=== PATIENT | male | born 1970 | race Caucasian/White ===

== ENCOUNTER 2022-08-22 10:32 | Inpatient (IN) ==
--- NOTE | 2022-08-22 11:36 | XRay Report ---
XR chest 1V portable CLINICAL HISTORY: Shortness of breath. COMPARISON STUDY: No previous studies for comparison. FINDINGS: There are low lung volumes with a small right pleural effusion and right mid and lower lung airspace opacity. Mild left basilar opacity is also present. Cardiac size is normal. There is pulmon caitlin vascular congestion. Spinal fusion is incidentally noted. IMPRESSION: 1. Bibasilar opacities, greater on the right. The findings favor pneumonia although atelectasis could appear similar. Radiographic follow-up is recommended to ensure stability. 2. Pulmonary vascular congestion. Small right pleural effusion. ACT 112: Negative or not required by law. Electronically signed by: North Andrade M.D. 08/22/2022 11:35 AM
[2022-08-22 11:54] LABS: Hematocrit (blood only) 21.3 % (40.1-51.0); Hemoglobin 6.7 g/dl (14.0-18.0); Mean Corpuscular Hemoglobin 32.8 pg (25.0-34.0); Mean Corpuscular Hgb Conc 31.5 g/dL (32.0-36.0); Mean Corpuscular Volume 104.4 fL (80.0-100.0); Mean Platelet Volume 11.4 fL (9.4-12.4); Platelet Count 283 K/uL (130-400); RDW Coefficient of Variation 14.6 % (11.5-14.5); RDW Standard Deviation 55.8 fL (36.4-46.3); Red Blood Count 2.04 M/uL (4.63-6.08); White Blood Count 11.77 K/ul (4.8-10.8)
[2022-08-22 12:00] LABS: INR 1.8 (0.9-1.1); Partial Thromboplastin Ratio 0.9; Partial Thromboplastin Time 25.5 Seconds (21.0-31.0); Prothrombin Time 18.1 Seconds (9.0-12.0)
[2022-08-22 12:07] LABS: Basophils # (auto) 0.02 K/uL (0-0.2); Basophils % (auto) 0.2 %; Echinocytes 1+; Eosinophils # (auto) 0.01 K/uL (0-0.50); Eosinophils % (auto) 0.1 %; Immature Granulocytes # (auto) 0.06 K/uL (0.00-0.02); Immature Granulocytes % (auto) 0.5 %; Lymphocytes # (auto) 1.22 K/uL (1.2-3.4); Lymphocytes % (auto) 10.4 %; Monocytes # (auto) 1.12 K/uL (0.24-0.82); Monocytes % (auto) 9.5 %; Neutrophils # (auto) 9.34 K/uL (1.4-6.5); Neutrophils % (auto) 79.3 %
[2022-08-22] MEDS ORDERED: SODIUM CHLORIDE 0.9% 250 ML IV PRN (12:07)
[2022-08-22 12:16] LABS: Troponin I High Sensitivity 6.7 pg/ml (0-20)
[2022-08-22 12:31] LABS: Alanine Aminotransferase 91 U/L (7-52); Albumin Globulin Ratio 0.9 (0.9-2); Albumin Level 2.3 gm/dl (3.4-5.0); Alkaline Phosphatase 102 U/L (34-104); Anion Gap 10 (3-11); Aspartate Aminotransferase 140 U/L (13-39); BUN Creatinine Ratio 44.9 (10-20); Bilirubin,Total 1.1 mg/dl (0.2-1.0); Blood Urea Nitrogen 40 mg/dl (6-23); Carbon Dioxide 15 mmol/L (21-32); Chloride 115 mmol/L (98-107); Est GFR (African American) 113.1 ml/min; Est GFR (Non-African American) 97.6 ml/min; Globulin 2.7 gm/dl (2.5-4.0); Glucose 121 mg/dl (70-99(Fasting)); Magnesium 1.8 mg/dl (1.7-2.4); Potassium 6.2 mmol/L (3.5-5.1); Sodium 140 mmol/L (136-145)
[2022-08-22 12:44] LABS: Base Excess VBG -6.8 mEq/L; HCO3 VBG 18 mmol/L; Oxygen Saturation VBG < 60.0 %; PCO2 VBG 32 mmHg (38-50); PO2 VBG 22 mmHg; pH VBG 7.35 (7.36-7.41)
[2022-08-22] MEDS ORDERED: NovoLIN-R INSULIN PER UNIT CHARGE IV STA (13:02)
[2022-08-22] MEDS ORDERED: DEXTROSE 50% 50 ML SYRINGE IV ONE (13:02)
[2022-08-22] MEDS ORDERED: SODIUM CHLORIDE 0.9% 500 ML IV ONE (13:05)
[2022-08-22] MEDS ORDERED: CEFEPIME 2,000 MG/20 ML VIAL IV STA (13:06)
[2022-08-22] MEDS ORDERED: PANTOprazole 80 MG in DEXTROSE 5% 100 ML IV ONE (13:06)
[2022-08-22] MEDS ORDERED: PANTOPRAZOLE BOLUS/DRIP 1 EACH IV STA (13:06)
[2022-08-22 13:17] LABS: Adenovirus PCR Not Detected (NotDetected); Bordetella parapertussis PCR Not Detected (NotDetected); Bordetella pertussis PCR Not Detected (NotDetected); Chlamydia pneumoniae PCR Not Detected (NotDetected); Coronavirus 229E PCR Not Detected (NotDetected); Coronavirus CoV-2 (COVID19)PCR Not Detected (NotDetected); Coronavirus HKU1 PCR Not Detected (NotDetected); Coronavirus NL63 PCR Not Detected (NotDetected); Coronavirus OC43PCR Not Detected (NotDetected); Human Metapneumovirus PCR Not Detected (NotDetected); Influenza A PCR Not Detected (NotDetected); Influenza B PCR Not Detected (NotDetected); Mycoplasma pneumoniae PCR Not Detected (NotDetected); Parainfluenza Virus 1 PCR Not Detected (NotDetected); Parainfluenza Virus 2 PCR Not Detected (NotDetected); Parainfluenza Virus 3 PCR Not Detected (NotDetected); Parainfluenza Virus 4 PCR Not Detected (NotDetected); Respiratory Syncytial VirusPCR Not Detected (NotDetected); Rhinovirus/Enterovirus PCR Not Detected (NotDetected)
[2022-08-22] MEDS ORDERED: OPTIRAY 320 500ml IV ONE (13:49)
--- NOTE | 2022-08-22 14:09 | CT Scan Report ---
CT OF THE ABDOMEN AND PELVIS WITH CONTRAST CLINICAL HISTORY: Bilateral lower extremity edema. GI bleed. COMPARISON STUDY: None. TECHNIQUE: Following IV administration of Optiray, axial images of the abdomen and pelvis were obtain ed from the lung bases to the proximal femurs. Images were reviewed in the axial, sagittal, and coron al planes. IV contrast was administered without complication. Automated exposure control was utilize d for the study. A dose lowering technique was utilized adhering to the principles of ALARA. FINDINGS: Emphysema within the lower lungs. Small right and trace left pleural effusions are noted. T he chest CT will be reported separately. There is a small hiatal hernia. Distal esophageal wall thick ening is noted. 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 Moderate gastric wall thickening is noted. Hyperden se material within the distal stomach is noted. The liver is cirrhotic. No hepatic lesions are identi fied on this portal venous phase exam. The main, left and right portal veins are patent. Size of the spleen is normal. Moderate abdominal and pelvic ascites is present. There is no evidence for a bowel obstruction. Mild nonspecific jejunal wall thickening is present. A small amount of ascites with a ri ght inguinal hernia is present. There is no hydronephrosis. A 3.9 cm cyst within the upper pole of th e right kidney is present. No biliary or pancreatic ductal dilatation is present. Major vasculature i s patent. There are no acute fractures within the visualized skeletal structures. IMPRESSION: 1. Cirrhosis with manifestations of portal hypertension including varices and moderate ascites. 2. Mild gastric wall thickening and prominent mucosal enhancement. This is nonspecific although may r eflect gastritis. Hyperdense material within the distal stomach which likely reflects ingested conten ts however clot could appear similar. 3. No bowel obstruction. Jejunal wall thickening. This is also nonspecific and could be due to to por gurpreet hypertension or hypoalbuminemia. 4. Moderate right and trace left pleural effusions. 5. Small hiatal hernia with distal esophageal wall thickening which may reflect esophagitis. ACT 112: Negative or not required by law. Electronically signed by: North Andrade M.D. 08/22/2022 2:08 PM
--- NOTE | 2022-08-22 14:09 | CT Scan Report ---
CT ANGIOGRAPHY OF THE CHEST, PULMONARY EMBOLUS PROTOCOL CLINICAL HISTORY: Shortness of breath. Evaluate for pulmonary embolus. COMPARISON STUDY: Chest radiograph performed earlier today. TECHNIQUE: Following IV administration of 99 mL of Optiray, helical axial images of the chest were ob tained utilizing the pulmonary embolus protocol. Maximal intensity projections and sagittal and jess nal reformats were viewed on an independent 3D workstation. IV contrast was administered without com plication. Automated exposure control was utilized for the study. A dose lowering technique was uti lized adhering to the principles of ALARA. CT DOSE: 1184.66 mGy.cm FINDINGS: No central or lobar pulmonary emboli identified. Remainder of the pulmonary arteries are s uboptimally assessed due to significant respiratory motion artifact. There is no thoracic aortic diss ection. Size of the heart is normal. There is no thoracic lymphadenopathy. Small right and trace left pleural effusions is noted. Associated airspace opacities favor atelectasis. Emphysema is present. L ungs are suboptimally assessed due to respiratory motion. No consolidation to suggest pneumonia. No p neumothorax. A small hiatal hernia is noted with distal esophageal wall thickening. Trace fluid withi n the cul-de-sac is noted. Hyperdense within visualized portions of the stomach are noted. Cirrhosis with upper abdominal ascites is visualized within the upper abdomen. IMPRESSION: 1. No pulmonary emboli identified although exam significantly compromised by respiratory motion. 2. Small right and trace left pleural effusions. 3. Emphysema. 4. Small hiatal hernia with distal esophageal wall thickening which is nonspecific but may reflect es ophagitis. 5. Hyperdense contents within the stomach. This likely reflects ingested material however clot could appear similar. 6. Cirrhosis with upper abdominal ascites. ACT 112: Negative or not required by law. Electronically signed by: North Andrade M.D. 08/22/2022 2:07 PM
[2022-08-22] MEDS: CALCIUM GLUCONATE 1,000 MG/60 ML BAG IV SCH ×3 (14:35→15:17)
[2022-08-22] MEDS ORDERED: OCTREOTIDE ACETATE 50 MCG in SYRINGE 9.5 ML IV STA (14:37)
[2022-08-22] MEDS ORDERED: STAT IV STA ×2 (14:37→20:18)
[2022-08-22] MEDS ORDERED: Patient's ALLERGY Info needs ENTERED SCH (14:45)
[2022-08-22] MEDS ORDERED: Patient's HEIGHT &/or WEIGHT Needed SCH (14:45)
[2022-08-22] MEDS ORDERED: ALBUT/IPRATROP 3MG/0.5MG NEB 3 ML VIAL NEB STA (14:54)
[2022-08-22] MEDS ORDERED: methylPREDNISolone 125 MG/2 ML VIAL IV STA (14:54)
[2022-08-22] MEDS ORDERED: LORazepam 2 MG/1 ML VIAL IV STA (14:54)
--- NOTE | 2022-08-22 14:55 | History & Physical Report ---
Date of Service August 22, 2022 Assessment & Plan (1) Upper GI bleed: Plan: Acute GI bleed,? Variceal bleed - CT-A/P: 1. Cirrhosis with manifestations of portal hypertension including varices and moderate ascites.2. Mild gastric wall thickening and prominent mucosal enhancement. This is nonspecific although may reflect gastritis. Hyperdense material within the distal stomach which likely reflects ingested contents however clot could appear similar.3. No bowel obstruction. Jejunal wall thickening. This is also nonspecific and could be due to to portal hypertension or hypoalbuminemia.4. Moderate right and trace left pleural effusions.5. Small hiatal hernia with distal esophageal wall thickening which may reflect esophagitis. - Hgb 6.2 on admit - Lactate 6.6, recheck pending On octreotide drip On Protonix drip Received NSS bolus on admission On cefepime, Flagyl added for anaerobic coverage Normotensive on initial assessment, pulse [id number], sinus tach suspect reactive with blood loss On 2 L of nasal cannula GI consulted, pending endoscopy. Strict n.p.o. 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 - INR 1.8, patient does not take blood thinners suspect cirrhotic coagulopathy; vitamin K 5 mg x 1 IV given in ER Patient initially hypotensive with elevated lactate, question hypoperfusion injury Octreotide/PPI/antibiotic management as noted above No ascites requiring emergent removal at time of initial assessment No history of hepatitis, per patient past history of alcohol use in remission (3) Hyperkalemia: Plan: Hyperkalemia K 6.2, no renal failure, Creatinine 0.89. Metabolic acidosis in the setting of lactate 6.6 - No chest pain/EKG changes BUN 40, consistent with upper GI bleed Receiving IV fluids, has received dextrose/insulin/calcium - +LR bolus, bicarb drip ordered on ICU xfer, renal electrolytes pending. Recheck potassium at 4 hours - BMP every 4 hours - Continue insulin/dextrose and calcium PRN. 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 Received Ativan IV in ER for anxiety, additional doses per clinical reassessment (5) Past use of tobacco: Plan: Hx tobacco use, ?COPD No diagnosis of COPD, has never had PFTs per pt Smoked 0.5 for at least 35 years, quit 6 months ago Scant wheezing on admission improved with methylpred + albuterol nebulizer in ER Patient denies using inhalers SERVICE SUPERVISOR, continue nebs as needed for wheezing/SOB is his facility med list. Defer additional steroids in the setting of acute bleeding Folow-up PFTs as outpatient (6) History of intravenous drug abuse: Plan: In remission for 2 years per patient, patient reports had not been tested for HIV/HCV in the past, although 1 note of possible testing in 06/2022 per record review. Hepatitis panel/HIV test pending. HIV test discussed with patient at time of admission, patient consents to testing (7) Hepatitis C virus: Plan: Patient denies this, one mention of HCV in [facility] review without additional details Patient was unaware of HCV testing or treatment (8) Pneumonia: Plan: right middle lobe pneumonia - Initially suspected base don CXR and cough. Reviewed with pulm, low suspicion. continue abx for GIB and defer additional coverage at this time No hypoxia on room air initially, did drop once and stable on 0-2 L oxygen. SPO2 goal greater than 90% Bio fire negative Imaging as noted No evidence of PE Plan DVT prophylaxis: Defer pharmacal prophylaxis in the setting of acute bleeding, SCDs Diet: Strict n.p.o. for GI bleed pending endoscopy Disposition: ICU CODE STATUS: Full code History of Present Illness [facility] 51[facility] who presents for acute GI bleed and weakness. ER Review: EKG: Sinus tachycardia, QTC 462. No ST segment changes Leukocytosis of 11.77, hemoglobin 6.7 with MCV 104, no hemoglobin baseline available for review INR 1.8 VB.3 / Potassium: 6.2, sodium 140 Lactate 6.6 on admission, repeat Procalcitonin 0.72 Bio fire negative CTAchest: No pulmonary emboli, exam limited by respiratory motion. Small right, trace left pleural effusions. Emphysema. Small hiatal hernia,? Esophagitis. Hyperdense stomach contents, ingested material versus clot. Cirrhosis with upper abdominal ascites. CTA/P: Cirrhosis with evidence of portal hypertension including varices/ascites. Mild gastric wall thickening and mucosal enhancement. No bowel obstruction, jejunal wall thickening. Moderate right and trace left pleural effusions. Small hiatal hernia, distal esophageal wall thickening CXR: Bibasilar opacities right greater than left favoring pneumonia. Pulmonary vascular congestion with small right pleural effusion. No echocardiogram on file for review Pt hx Patient seen at bedside with care home guards present. Patient reports that about 1 week ago he had epigastric pain suspected possible hernia with no prior history of GERD, was recommended to use a binder. Had 2 episodes of dark black bowel movements which occurred approximately 1 week ago. Has used ibuprofen for general pain in the past. Denies history of ulcers/endoscopy in the past. No black/melenic bowel movements prior to 2 weeks ago. With EMR history of cirrhosis, patient reports he was unaware of this. Endorses a past history of IV drug use and meth use in remission for 2 years, reports that he has not been tested for hep C virus or HIV in the past and has not received treatment for either of these to his knowledge. Per chart mention of HCV 06/2022 without additional details given. No alcohol use in 15 years. Patient reports he became very short of breath which worsened in the last 2 days and is worsened by ambulation. Reconciliation shows had been prescribed azithromycin 5-day course. At time of assessment endorses slight shortness of breath worsens with exertion, denies any chest pressure/chest pain/syncope/presyncope. Has had epigastric pain intermittently in the last 2 weeks but is worse in the last 24 hours. Pepcid was prescribed by the facility for this SERVICE SUPERVISOR. No PPI trials to patient's knowledge previous to this. Patient denies any history of blood thinner use, clotting/bleeding problems in the past. No history of liver/renal failure to patient's knowledge. He reports he has never been told he has COPD, has smoked since age 9 recently in remission approximately 6 months ago. Prior 0.5 pack/day use on average to quitting. Allergies Allergy/AdvReac Type Severity Reaction Status Date / Time No Known Allergies Allergy Unverified 08/22/22 15:39 Home Medications Medication Instructions Recorded Confirmed Type albuterol sulfate 90 mcg/actuation 1 puff inhalation Q4H PRN Wheezing 08/22/22 08/22/22 History aerosol inhaler azithromycin 250 mg tablet 250 mg PO DAILY 08/22/22 08/22/22 History famotidine 20 mg tablet 20 mg PO BID 08/22/22 08/22/22 History ibuprofen 600 mg tablet 600 mg PO TID PRN Pain 08/22/22 08/22/22 History mirtazapine 15 mg tablet 15 mg PO HS 08/22/22 08/22/22 History paroxetine HCl 20 mg tablet 20 mg PO DAILY 08/22/22 08/22/22 History Past Med/Surg History Medical History Anxiety Cirrhosis History of intravenous drug abuse Past use of tobacco Social History (Updated 08/22/22 @ 15:52 by Juan David Penn MD) Smoking Status: Former smoker Tobacco Type: Cigarettes Age Started Using Tobacco: 9; Age Quit Using Tobacco: 51; packs per day: 0.5; Hx Alcohol Use: No (Past etoh) Hx Substance Use: Yes Non-Prescribed Medications: IV Drugs Last Used Substance Other:: 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 Preferred Language: Wolof Feels Safe at Home: Yes Review of Systems Review of Systems: All systems reviewed & are unremarkable except as noted in Subjective Physical Exam Physical Exam: General: Alert, oriented to name, place, and year. Appears anxious, no acute distress. Heart rate 883854, BP 122/71 at bedside HEENT: Atraumatic, normocephalic. Vision and hearing grossly intact. Pupils equal and reactive to light and accommodation. No visual field cut Pulm: Scattered bilateral end expiratory wheezes, no rhonchi/rales symmetrical chest rise. No increase in work of breathing. Cardiac: Regular, tachycardic. Radial pulses intact and symmetrical. Abdominal: Epigastric tenderness, softly distended. BS intact Extremities: Warm, dry. Bilateral lower extremity pitting edema. Able to wiggle toes bilaterally, sharepoint designer developer strength 5/5 bilaterally, sensation of soft touch intact in hands and feet bilaterally. Results & Data Results & Data ([facility]) Vital Signs (Past 12 Hours) Vital Signs Temp Pulse Resp BP Pulse Ox O2 Del Method O2 Flow Rate 08/22/22 14:44 36.6 C 120 H 24 124/71 94 2 08/22/22 13:00 112 H 19 08/22/22 12:30 110 H 16 08/22/22 12:16 95/65 L 08/22/22 12:16 107 H 19 92 08/22/22 12:00 103 H 14 92 08/22/22 11:30 110 H 13 91 08/22/22 11:14 105 H 16 91 08/22/22 11:09 91 Room Air 0 08/22/22 10:54 36.5 C 111 H 20 115/65 93 Room Air PG Care Time/CCT Total # of Minutes Spent Total Time Spent with Patient: Total time spent is greater than 50% in coordination of care (as documented) at patient's floor/unit and/or counseling patient: Coding Level of Care Code 54233 Initial Inpt Care Lvl 3 Diagnoses Upper GI bleed K92.2 Cirrhosis K74.60 Hyperkalemia E87.5 Anxiety F41.9 Past use of tobacco Z87.891 History of intravenous drug abuse F19.11 Hepatitis C virus B19.20 Pneumonia J18.9
[2022-08-22] MEDS ORDERED: metroNIDAZOLE 500 MG/100 ML BAG IV STA (14:58)
[2022-08-22] MEDS ORDERED: VANCOMYCIN CONSULT ACTIVE PRN (14:58)
[2022-08-22] MEDS ORDERED: VANCOMYCIN HCL 2,250 MG in SODIUM CHLORIDE 0.9% 500 ML IV ONE (14:58)
[2022-08-22] MEDS ORDERED: PHYTONADIONE 5 MG in DEXTROSE 5% 50 ML IV ONE (15:04)
[2022-08-22] MEDS ORDERED: ALBUT/IPRATROP 3MG/0.5MG NEB 3 ML VIAL NEB ONE (15:31)
[2022-08-22] MEDS ORDERED: NORMOSOL-R 1,000 ML IV ONE (15:38)
[2022-08-22] MEDS ORDERED: SODIUM BICARB 8.4% INJ 50 MEQ/50 ML SYR IV STA (15:41)
--- NOTE | 2022-08-22 15:42 | Pulmonary Consultation ---
Date of Consultation August 22, 2022 Assessment & Plan (1) COPD exacerbation: (2) Cirrhosis: (3) Hepatitis C virus: (4) Pleural effusion: (5) Coagulopathy: (6) Ascites: (7) Lactic acidosis: (8) History of intravenous drug abuse: (9) Anxiety: (10) Acute on chronic blood loss anemia: (11) Upper GI bleed: (12) Hyperkalemia: Plan Reason Critically Ill: 51-year-old inmate past medical history of liver cirrhosis, hep C presents to the hospital with melanotic stools. Hemoglobin was 6.8 and potassium 6.2. Admitted to the ICU for further care Neuro - CAM ICU: Negative Cardiac - -- Sinus tachycardia Likely from underlying bleeding and anemia Give IV fluids, blood and monitor Respiratory - CT chest 08/22/2022 personally reviewed: Centrilobular emphysema appreciated bilaterally right-sided pleural effusion with dependent atelectasis, small left- sided pleural effusion Fluid in the fissure No mediastinal lymphadenopathy -- Acute COPD exacerbation Given the active bleed we will try to avoid steroids Continue with inhaled bronchodilators --Pleural effusion Likely secondary to ascites Continue to monitor --Ex-smoker Approximately [id number] smoking history Quit 6 months ago GI - -- Acute GI bleed Elevated BUN likely representing upper GI source from possible varices Continue with octreotide, pantoprazole drip, give Rocephin no equivalent to cover for SBP GI has been consulted -- Ascites Will consider paracentesis Imminent is EGD -- Coagulopathy with transaminitis Likely from liver cirrhosis Continue to monitor S/p 5 mg vitamin K -- History of hep C Not treated RENAL/LYTES - -- Hyperkalemia EKG does not show any ST-T wave changes Potassium binder unfortunately not a good option given the active bleed Will consider Lasix after repeat BMP BMP every 4 hours -- HAGMA Delta-delta: Less than 1, gap plus nongap Gap is likely from lactic acidosis, non- anion gap could be from renal loss. Follow-up urine lites Monitor - No active issues ENDO - ICU hypoglycemia protocol HEME - -- Acute blood loss anaemia on chronic macrocytic anemia Likely secondary to upper GI bleed Type and screen Transfuse as needed to keep hemoglobin greater than 7 Monitor H&H ID - --Continue with Rocephin equivalent to cover for SBP as well as active GI bleed Procalcitonin 0.72, respiratory bio fire negative Rapid bio fire for respiratory panel was negative --Prophylaxis VTE: IPC GI: Protonix drip Lines: Peripheral Diet: N.p.o. Plan: Give another liter Normosol bolus Continue with octreotide, pantoprazole drip Monitor H&H. Repeat BMP in 4 hours. Give 100 mg of bicarb now. Start the patient on Brovana and budesonide along with DuoNebs every 6 hours. If the patient is still persistently wheezing then Solu-Medrol will be started at 40 mg on a daily basis. I have personally spent 54 minutes of critical care time in the direct management of this patient. This is a life/limb threatening event. This includes time spent evaluating patient, direct bedside care, chart review, placing orders, interpretation of diagnostic studies, discussion with consultants, patient, and family members, as well as other required patient management activities. This time is exclusive of all separately billable procedures, and teaching time and separate from and in addition to any other critical care service time. 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 Her systolic blood pressure was in the high 110s. Complained of mild epigastric pain. He was actively wheezing Not in respiratory distress. Denied any headache. Did complain of nausea but no vomiting. No headache, no blurry vision. No dizziness right now. The patient never had any paracentesis done in the past. Patient's potassium was also found to be high. He got calcium gluconate, insulin as well as glucose cocktail. Social history: [id number] smoking history, quit approximately 6 months ago. Used to do meth snorting. 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 Exposure to dust Allergies Allergy/AdvReac Type Severity Reaction Status Date / Time No Known Allergies Allergy Unverified 08/22/22 15:39 Home Medications Medication Instructions Recorded Confirmed Type albuterol sulfate 90 mcg/actuation 1 puff inhalation Q4H PRN Wheezing 08/22/22 08/22/22 History aerosol inhaler azithromycin 250 mg tablet 250 mg PO DAILY 08/22/22 08/22/22 History famotidine 20 mg tablet 20 mg PO BID 08/22/22 08/22/22 History ibuprofen 600 mg tablet 600 mg PO TID PRN Pain 08/22/22 08/22/22 History mirtazapine 15 mg tablet 15 mg PO HS 08/22/22 08/22/22 History paroxetine HCl 20 mg tablet 20 mg PO DAILY 08/22/22 08/22/22 History Patient History Medical History Anxiety Cirrhosis History of intravenous drug abuse Past use of tobacco Social History Smoking Status: Former smoker Preferred Language: Romansh Feels Safe at Home: Yes Review of Systems Review of Systems: All systems reviewed & are unremarkable except as noted in HPI & below Physical Exam Physical Exam: Constitutional: No acute distress HEENT: EOMI, PERRLA Respiratory system: Decreased air entry bilaterally, no rhonchi, positive crackles bilateral lower lobes, positive expiratory wheeze CVS: S1-S2 positive, no murmurs or gallops, tachycardia Abdomen: Soft, distended, no rebound, positive epigastric tenderness, decreased bowel sounds x4 Extremities: +2 pulses bilaterally radialis/ dorsalis pedis, no cyanosis, +2 pitting edema bilateral lower extremity Neuro: Awake alert oriented x3 Psych: Normal mood and affect G/U: No [place] Results & Data Results & Data ([facility]) Vital Signs (Past 12 Hours) Vital Signs Temp Pulse Resp BP Pulse Ox O2 Del Method O2 Flow Rate 08/22/22 14:45 122 H 20 95 08/22/22 14:45 124/71 08/22/22 14:41 118 H 19 94 08/22/22 14:41 130/76 08/22/22 14:30 118 H 20 92 08/22/22 14:00 120 H 20 94 08/22/22 13:53 117 H 16 96 08/22/22 13:53 137/78 08/22/22 13:48 124 H 20 08/22/22 15:00 36.4 C L 121 H 20 122/71 94 08/22/22 14:00 89 L Room Air 0 08/22/22 14:44 36.6 C 120 H 24 124/71 94 2 08/22/22 13:00 112 H 19 08/22/22 12:30 110 H 16 08/22/22 12:16 95/65 L 08/22/22 12:16 107 H 19 92 12/25/22 12:00 103 H 14 92 08/22/22 11:30 110 H 13 91 08/22/22 11:14 105 H 16 91 08/22/22 11:09 91 Room Air 0 08/22/22 10:54 36.5 C 111 H 20 115/65 93 Room Air Laboratory Results 08/22/22 11:40 08/22/22 11:40 PG Care Time/CCT Total # of Minutes Spent Total Time Spent with Patient: Total time spent is greater than 50% in coordination of care (as documented) at patient's floor/unit and/or counseling patient: Coding Level of Care Code Critical Care 1st 30-74 mins Diagnoses COPD exacerbation J44.1 Cirrhosis K74.60 Hepatitis C virus B19.20 Pleural effusion J90 Coagulopathy D68.9 Ascites R18.8 Lactic acidosis E87.20 History of intravenous drug abuse F19.11 Anxiety F41.9 Acute on chronic blood loss anemia D62 Upper GI bleed K92.2 Hyperkalemia E87.5 Time Spent (min) 54
--- NOTE | 2022-08-22 15:53 | Emergency Department Note ---
Impression & Plan Upper GI bleed, Coagulopathy, Lactic acidosis, Hyperkalemia, Pneumonia, Cirrhosis, COPD exacerbation, Symptomatic anemia ED Provider Note NAME: LATASHA [id number] STAFF AGE: 51 SEX: M ARRIVES VIA: Walk-In INFORMANT: Patient ED PROVIDER(S): Damaso Girard MD CHIEF COMPLAINT: Shortness of breath, referred. PLAN: Disposition: Admit MEDICAL DECISION MAKING: The patient is a pleasant 51-year-old gentleman, current inmate at [facility] who has a history of cirrhosis and prior smoking history who presents to the emergency department via walk-in with guards for evaluation of worsening shortness of breath over the past week where he had been treated with azithromycin for bronchitis with no improvement. He reports he did have episodes of black stool earlier in the week but over the past couple of days had bloody diarrhea. He denies being on any blood thinners. He denies knowing any history of cirrhosis though it is on his records. He reports he used to drink alcohol heavily but quit 15 years ago. His records do show a history of hepatitis C. On arrival the patient is fatigued appearing, uncomfortable, mildly dyspneic with mild pallor with heart in the 100s and blood pressure 90s-100s/60s. He is mentating normally. He has wheezes of bilateral lung junior with scant rhonchi of the right mid lung junior and diminished at the right base. He has 1+ bilateral lower extremity pitting edema which she reports has developed over the past couple of weeks. EKG without overt acute ischemia. Chest x-ray with bibasilar opacities right greater than left which is suspicious for pneumonia and better characterized on CT. Right pleural effusions also seen. WBC 11.7 with neutrophil predominance without significant left shift. Platelets within normal limits. H/H6.7/21.3 without prior values for comparison however in the setting of GI bleeding and likely explains component of the patient's dyspnea. He was consented for blood transfusion and 2 units of PRBCs were ordered and administration was initiated. INR is elevated 1.8 without prior for comparison. Vitamin K has been ordered. VBG with pH of 7.35 and PCO2 32. Potassium was 6.2 without EKG changes and normal renal function. Insulin with dextrose and calcium gluconate administered. Patient does have a nonanion gap metabolic acidosis with bicarb of 15 however lactic acid was 6.6 and repeat was 7.3 however this was prior to the patient receiving any blood products or fluids. Total bili 1.1 and AST and ALT 1 4091, respectively without prior for comparison. Alk phos within normal limits. High-sensitivity troponin 6.7 and BNP 23. Procalcitonin was mildly elevated at 0.72. Patient was additionally treated with IV fluid hydration cautiously and so 500 cc of normal saline was ordered in the setting of the patient's cirrhosis with bilateral lower extremity pitting edema with preference and resuscitation given to blood products. He was also given Solu-Medrol for COPD flare/bronchospasm in the setting of his pneumonia and additionally ordered for hour-long DuoNeb for symptomatic management. Blood pressures remained stable following initiation of normal saline and blood transfusion with systolic blood pressure 130s. CT of the chest was negative for PE. Pleural effusions seen right greater than left. Emphysema is noted. Airspace opacities noted where atelectasis suspected however per my review right middle lobe opacity suspicious for pneumonia given the clinical context. CT of the abdomen pelvis demonstrates evidence of cirrhosis with evidence of portal hypertension including varices and moderate ascites. Note is made of mild gastric wall thickening with mucosal enhancement in the consistent with gastritis. There is hyperdense material within the stomach that may represent clot given the clinical context of GI bleeding. Jejunal thickening is also noted. Pleural effusions are again seen. Evidence of esophagitis is also present. Case was discussed with gastroenterology on-call, Dr. Hoffman. Appreciate recommendations/consultation and evaluation at the bedside. Agrees with Octreotide and Protonix bolus/gtt. Plan will be for likely endoscopy. Case was d/w Dr. Penn, [facility] hospitalist who will evaluate the patient for ad mission. Triage Nursing notes reviewed and agree them. Prior medical records reviewed Vital Signs: reviewed Differential diagnosis: Reactive airway disease, pneumonia, pneumothorax, COPD, CHF, infections, cardiac ischemia, pulmonary embolism, musculoskeletal, gastrointestinal, as well as other pathologies. ER treatment provided: See below. Diagnostics interpreted by me: ECG: Sinus tachycardia, 104 bpm, no ectopy, no overt ST ovation depression, QTC 462, QRS 82 Cardiac Monitoring: An order for continuous cardiac monitoring was placed and demonstrated sinus tachycardia, 104 bpm, no ectopy, Laboratory studies: See below Imaging studies: See below Consultation(s): Dr. Gonzales, GI. Dr. Penn, [facility] hospitalist. HPI: The patient is a pleasant 51-year-old gentleman, current inmate at [facility] who has a history of cirrhosis and prior smoking history who presents to the emergency department via walk-in with guards for evaluation of worsening shortness of breath over the past week where he had been treated with azithromycin for bronchitis with no improvement. He reports he did have episodes of black stool earlier in the week but over the past couple of days had bloody diarrhea. He denies being on any blood thinners. He denies knowing any history of cirrhosis though it is on his records. He reports he used to drink alcohol heavily but quit 15 years ago. His records do show a history of hepatitis C. ROS: See above HPI for pertinent positives & negatives. A total of 10 systems reviewed and were otherwise negative. VITALS:See Below PHYSICAL EXAMINATION: GENERAL: Awake, alert, ill-appearing, mildly dyspneic in no acute distress. HENT: Normocephalic, atraumatic. Oropharynx with dry mucous membranes and ot herwise unremarkable. EYES: Normal conjunctiva. Sclera non-icteric. NECK: Supple. No nuchal rigidity. FROM. No JVD. RESPIRATORY: Wheezes of bilateral lung junior with scant rhonchi of the right mid lung junior and diminished at the right base CARDIAC: Tachycardic rate, normal rhythm. Extremities warm and well perfused. Pulses equal. ABDOMEN: Soft, non-distended. No tenderness to palpation. No rebound or guarding. No masses. RECTAL: Deferred. MUSCULOSKELETAL: Chest examination reveals no tenderness. The back is symmetrical on inspection without obvious abnormality. There is no CVA tenderness to palpation. No joint edema. LOWER EXTREMITIES: Calves are equal size bilaterally and non-tender. 2+ BLE edema. No discoloration. NEURO: Normal sensorium. No sensory or motor deficits noted. SKIN: Mild Pallor. No rash or jaundice noted. ED COURSE: Critical Care: I have personally spent greater than 125 minutes of critical care time in the direct management of this patient. This includes bedside care, interpretation of diagnostic studies, and testing, discussion with consultants, patient, and family members, and other required patient management activities. This 125 minutes is in excess of all separately billable procedures. Damaso Girard MD Past Med/Surg History Medical History Acute on chronic blood loss anemia Anxiety Cirrhosis COPD (chronic obstructive pulmonary disease) History of intravenous drug abuse Past use of tobacco Family History Other Family history non-contributory Social History Smoking Status: Former smoker Tobacco Type: Cigarettes Age Started Using Tobacco: 9; Age Quit Using Tobacco: 51; packs per day: 0.5; Hx Alcohol Use: No Hx Substance Use: No (UNABLE TO OBTAIN) Preferred Language: Latvian Communication Ability: Impaired Senior Service Aide Required: No Beliefs That Will Affect Care: None Current Living Situation: Other Feels Safe at Home: Yes Safety Concerns: Feels Safe At This Time Assistive Devices: None Allergies Allergies Allergy/AdvReac Type Severity Reaction Status Date / Time No Known Allergies Allergy Unverified 08/22/22 15:39 Home Meds Home Medications Medication Instructions Recorded Confirmed albuterol sulfate 90 mcg/actuation 1 puff inhalation Q4H PRN Wheezing 08/22/22 08/22/22 aerosol inhaler azithromycin 250 mg tablet 250 mg PO DAILY 08/22/22 08/22/22 famotidine 20 mg tablet 20 mg PO BID 08/22/22 08/22/22 ibuprofen 600 mg tablet 600 mg PO TID PRN Pain 08/22/22 08/22/22 mirtazapine 15 mg tablet 15 mg PO HS 08/22/22 08/22/22 paroxetine HCl 20 mg tablet 20 mg PO DAILY 08/22/22 08/22/22 Results & Data (ED) Vital Signs Vital Signs - 24 hr 08/22/22 10:54 08/22/22 11:09 08/22/22 11:09 Temperature 36.5 C Temperature Source Temporal Artery Scan Pulse Rate 111 H Pulse Rate [Right Finger] Pulse Rate from SpO2 Sensor Pulse Rhythm Pulse Strength Respiratory Rate 20 Respiratory Effort / Characteristics Non-Labored Respiratory Depth Normal Normal Respiratory Pattern Regular Blood Pressure 115/65 Blood Pressure Mean 81 Blood Pressure Position Sitting Pulse Oximetry 93 91 Oxygen Delivery Method Room Air Room Air Oxygen Flow Rate 0 Sepsis Recent Fever Within 48 Hours No Sepsis New/Unexplained Change in Mental Status No Sepsis Action Taken by Nursing No Action Required Oxygen Flow Rate - Titration Pulse Oximetry Post Tiitration 08/22/22 11:14 08/22/22 11:30 08/22/22 12:00 Temperature Temperature Source Pulse Rate 105 H 110 H 103 H Pulse Rate [Right Finger] Pulse Rate from SpO2 Sensor 106 H 110 H 103 H Pulse Rhythm Pulse Strength Respiratory Rate 16 13 14 Respiratory Effort / Characteristics Respiratory Depth Respiratory Pattern Blood Pressure Blood Pressure Mean Blood Pressure Position Pulse Oximetry 91 91 92 Oxygen Delivery Method Oxygen Flow Rate Sepsis Recent Fever Within 48 Hours Sepsis New/Unexplained Change in Mental Status Sepsis Action Taken by Nursing Oxygen Flow Rate - Titration Pulse Oximetry Post Tiitration 08/22/22 12:16 08/22/22 12:16 08/22/22 12:30 Temperature Temperature Source Pulse Rate 107 H 110 H Pulse Rate [Right Finger] Pulse Rate from SpO2 Sensor 106 H Pulse Rhythm Pulse Strength Respiratory Rate 19 16 Respiratory Effort / Characteristics Respiratory Depth Respiratory Pattern Blood Pressure 95/65 L Blood Pressure Mean 75 Blood Pressure Position Pulse Oximetry 92 Oxygen Delivery Method Oxygen Flow Rate Sepsis Recent Fever Within 48 Hours Sepsis New/Unexplained Change in Mental Status Sepsis Action Taken by Nursing Oxygen Flow Rate - Titration Pulse Oximetry Post Tiitration 08/22/22 13:00 08/22/22 14:44 08/22/22 14:00 Temperature 36.6 C Temperature Source Oral Pulse Rate 112 H 120 H Pulse Rate [Right Finger] Pulse Rate from SpO2 Sensor Pulse Rhythm Regular Pulse Strength Respiratory Rate 19 24 Respiratory Effort / Characteristics Respiratory Depth Respiratory Pattern Blood Pressure 124/71 Blood Pressure Mean 88 Blood Pressure Position Semi-fowlers Pulse Oximetry 94 89 L Oxygen Delivery Method Room Air Oxygen Flow Rate 2 0 Sepsis Recent Fever Within 48 Hours Sepsis New/Unexplained Change in Mental Status Sepsis Action Taken by Nursing Oxygen Flow Rate - Titration 2 Pulse Oximetry Post Tiitration 93 08/22/22 15:00 08/22/22 13:48 08/22/22 13:53 Temperature 36.4 C L Temperature Source Oral Pulse Rate 121 H 124 H Pulse Rate [Right Finger] Pulse Rate from SpO2 Sensor Pulse Rhythm Regular Pulse Strength Normal Respiratory Rate 20 20 Respiratory Effort / Characteristics Respiratory Depth Respiratory Pattern Blood Pressure 122/71 137/78 Blood Pressure Mean 88 97 Blood Pressure Position Lying Pulse Oximetry 94 Oxygen Delivery Method Oxygen Flow Rate Sepsis Recent Fever Within 48 Hours Sepsis New/Unexplained Change in Mental Status Sepsis Action Taken by Nursing Oxygen Flow Rate - Titration Pulse Oximetry Post Tiitration 08/22/22 13:53 08/22/22 14:00 08/22/22 14:30 Temperature Temperature Source Pulse Rate 117 H 120 H 118 H Pulse Rate [Right Finger] Pulse Rate from SpO2 Sensor 117 H 121 H 118 H Pulse Rhythm Pulse Strength Respiratory Rate 16 20 20 Respiratory Effort / Characteristics Respiratory Depth Respiratory Pattern Blood Pressure Blood Pressure Mean Blood Pressure Position Pulse Oximetry 96 94 92 Oxygen Delivery Method Oxygen Flow Rate Sepsis Recent Fever Within 48 Hours Sepsis New/Unexplained Change in Mental Status Sepsis Action Taken by Nursing Oxygen Flow Rate - Titration Pulse Oximetry Post Tiitration 08/22/22 14:41 08/22/22 14:41 08/22/22 14:45 Temperature Temperature Source Pulse Rate 118 H Pulse Rate [Right Finger] Pulse Rate from SpO2 Sensor 118 H Pulse Rhythm Pulse Strength Respiratory Rate 19 Respiratory Effort / Characteristics Respiratory Depth Respiratory Pattern Blood Pressure 130/76 124/71 Blood Pressure Mean 94 88 Blood Pressure Position Pulse Oximetry 94 Oxygen Delivery Method Oxygen Flow Rate Sepsis Recent Fever Within 48 Hours Sepsis New/Unexplained Change in Mental Status Sepsis Action Taken by Nursing Oxygen Flow Rate - Titration Pulse Oximetry Post Tiitration 08/22/22 14:45 08/22/22 15:15 08/22/22 15:15 Temperature 36.4 C L Temperature Source Oral Pulse Rate 122 H 121 H Pulse Rate [Right Finger] Pulse Rate from SpO2 Sensor 123 H Pulse Rhythm Pulse Strength Respiratory Rate 20 23 Respiratory Effort / Characteristics Respiratory Depth Respiratory Pattern Blood Pressure 119/70 Blood Pressure Mean 86 Blood Pressure Position Pulse Oximetry 95 93 Oxygen Delivery Method Oxygen Flow Rate 2 Sepsis Recent Fever Within 48 Hours Sepsis New/Unexplained Change in Mental Status Sepsis Action Taken by Nursing Oxygen Flow Rate - Titration Pulse Oximetry Post Tiitration 08/22/22 15:00 08/22/22 15:00 08/22/22 15:15 Temperature Temperature Source Pulse Rate 122 H Pulse Rate [Right Finger] Pulse Rate from SpO2 Sensor 122 H Pulse Rhythm Pulse Strength Respiratory Rate 20 Respiratory Effort / Characteristics Respiratory Depth Respiratory Pattern Blood Pressure 122/71 119/70 Blood Pressure Mean 88 86 Blood Pressure Position Pulse Oximetry 94 Oxygen Delivery Method Oxygen Flow Rate Sepsis Recent Fever Within 48 Hours Sepsis New/Unexplained Change in Mental Status Sepsis Action Taken by Nursing Oxygen Flow Rate - Titration Pulse Oximetry Post Tiitration 08/22/22 15:15 08/22/22 15:30 08/22/22 15:30 Temperature Temperature Source Pulse Rate 125 H 121 H Pulse Rate [Right Finger] Pulse Rate from SpO2 Sensor 126 H 121 H Pulse Rhythm Pulse Strength Respiratory Rate 23 21 Respiratory Effort / Characteristics Respiratory Depth Respiratory Pattern Blood Pressure 132/85 Blood Pressure Mean 100 Blood Pressure Position Pulse Oximetry 90 94 Oxygen Delivery Method Nasal Cannula Oxygen Flow Rate 2 Sepsis Recent Fever Within 48 Hours Sepsis New/Unexplained Change in Mental Status Sepsis Action Taken by Nursing Oxygen Flow Rate - Titration Pulse Oximetry Post Tiitration 08/22/22 15:45 08/22/22 15:45 08/22/22 15:57 Temperature Temperature Source Pulse Rate 120 H Pulse Rate [Right Finger] 118 H Pulse Rate from SpO2 Sensor 121 H Pulse Rhythm Pulse Strength Respiratory Rate 18 20 Respiratory Effort / Characteristics Spontaneous Respiratory Depth Respiratory Pattern Blood Pressure 142/77 H Blood Pressure Mean 98 Blood Pressure Position Pulse Oximetry 97 93 Oxygen Delivery Method Nasal Cannula Oxygen Flow Rate 2 Sepsis Recent Fever Within 48 Hours Sepsis New/Unexplained Change in Mental Status Sepsis Action Taken by Nursing Oxygen Flow Rate - Titration Pulse Oximetry Post Tiitration 08/22/22 16:00 08/22/22 16:00 08/22/22 16:15 Temperature Temperature Source Pulse Rate 120 H Pulse Rate [Right Finger] Pulse Rate from SpO2 Sensor 120 H Pulse Rhythm Pulse Strength Respiratory Rate 17 Respiratory Effort / Characteristics Respiratory Depth Respiratory Pattern Blood Pressure 127/72 151/60 H Blood Pressure Mean 90 90 Blood Pressure Position Pulse Oximetry 98 Oxygen Delivery Method Oxygen Flow Rate Sepsis Recent Fever Within 48 Hours Sepsis New/Unexplained Change in Mental Status Sepsis Action Taken by Nursing Oxygen Flow Rate - Titration Pulse Oximetry Post Tiitration 08/22/22 16:15 08/22/22 16:38 08/22/22 16:25 Temperature 36.4 C L Temperature Source Oral Pulse Rate 120 H 125 H Pulse Rate [Right Finger] Pulse Rate from SpO2 Sensor 119 H Pulse Rhythm Regular Pulse Strength Normal Respiratory Rate 16 22 Respiratory Effort / Characteristics Respiratory Depth Respiratory Pattern Blood Pressure 132/64 136/71 Blood Pressure Mean 86 92 Blood Pressure Position Lying Pulse Oximetry 98 99 Oxygen Delivery Method Oxygen Flow Rate 9 Sepsis Recent Fever Within 48 Hours Sepsis New/Unexplained Change in Mental Status Sepsis Action Taken by Nursing Oxygen Flow Rate - Titration Pulse Oximetry Post Tiitration 08/22/22 16:25 08/22/22 16:30 08/22/22 16:30 Temperature Temperature Source Pulse Rate 128 H 125 H Pulse Rate [Right Finger] Pulse Rate from SpO2 Sensor 128 H 125 H Pulse Rhythm Pulse Strength Respiratory Rate 18 15 Respiratory Effort / Characteristics Respiratory Depth Respiratory Pattern Blood Pressure 132/64 Blood Pressure Mean 86 Blood Pressure Position Pulse Oximetry 98 99 Oxygen Delivery Method Aerosol Mask Oxygen Flow Rate 9 Sepsis Recent Fever Within 48 Hours Sepsis New/Unexplained Change in Mental Status Sepsis Action Taken by Nursing Oxygen Flow Rate - Titration Pulse Oximetry Post Tiitration 08/22/22 16:35 Temperature Temperature Source Pulse Rate 127 H Pulse Rate [Right Finger] Pulse Rate from SpO2 Sensor 126 H Pulse Rhythm Pulse Strength Respiratory Rate 23 Respiratory Effort / Characteristics Respiratory Depth Respiratory Pattern Blood Pressure Blood Pressure Mean Blood Pressure Position Pulse Oximetry 99 Oxygen Delivery Method Oxygen Flow Rate Sepsis Recent Fever Within 48 Hours Sepsis New/Unexplained Change in Mental Status Sepsis Action Taken by Nursing Oxygen Flow Rate - Titration Pulse Oximetry Post Tiitration Laboratory Data Attestation: I reviewed the patient's lab results. Result diagrams: 08/22/22 22:20 08/22/22 22:20 Lab Results 08/22/22 08/22/22 08/22/22 Range/Units 11:40 11:40 11:40 WBC 11.77 H (4.8-10.8) K/ul RBC 2.04 L (4.63-6.08) M/uL Hgb 6.7 L* (14.0-18.0) g/dl Hct 21.3 L (40.1-51.0) % MCV 104.4 H (80.0-100.0) fL MCH 32.8 (25.0-34.0) pg MCHC 31.5 L (32.0-36.0) g/dL RDW Std Deviation 55.8 H (36.4-46.3) fL RDW Coeff of Farrah 14.6 H (11.5-14.5) % Plt Count 283 (130-400) K/uL MPV 11.4 (9.4-12.4) fL Immature Gran % (Auto) 0.5 % Neut % (Auto) 79.3 % Lymph % (Auto) 10.4 % [place] % (Auto) 9.5 % Eos % (Auto) 0.1 % Baso % (Auto) 0.2 % Neut # (Auto) 9.34 H (1.4-6.5) K/uL Lymph # (Auto) 1.22 (1.2-3.4) K/uL [place] # (Auto) 1.12 H (0.24-0.82) K/uL Eos # (Auto) 0.01 (0-0.50) K/uL Baso # (Auto) 0.02 (0-0.2) K/uL Immature Gran # (Auto) 0.06 H (0.00-0.02) K/uL Echinocytes 1+ PT 18.1 H (9.0-12.0) Seconds INR 1.8 H (0.9-1.1) APTT 25.5 (21.0-31.0) Seconds PTT Ratio 0.9 VBG pH (7.36-7.41) VBG pCO2 (38-50) mmHg VBG pO2 mmHg VBG HCO3 mmol/L VBG O2 Saturation % VBG Base Excess mEq/L Sodium 140 (136-145) mmol/L Potassium 6.2 H* (3.5-5.1) mmol/L Chloride 115 H (98-107) mmol/L Carbon Dioxide 15 L (21-32) mmol/L Anion Gap 10 (3-11) BUN 40 H (6-23) mg/dl Creatinine 0.89 (0.6-1.4) mg/dl Est Cr Clr Drug Dosing Not Reportable Est GFR ( Amer) 113.1 ml/min Est GFR (Non-Af Amer) 97.6 ml/min BUN/Creatinine Ratio 44.9 H (10-20) Glucose 121 H (70-99(Fasting)) mg/dl Osmolality (280-300) mOsm/kg Lactate (0.4-2.0) mmol/L Calcium 8.0 L (8.5-10.1) mg/dl Phosphorus (2.5-4.9) mg/dl Magnesium 1.8 (1.7-2.4) mg/dl Total Bilirubin 1.1 H (0.2-1.0) mg/dl AST 140 H (13-39) U/L ALT 91 H (7-52) U/L Alkaline Phosphatase 102 (34-104) U/L Troponin I High Sens 6.7 (0-20) pg/ml B-Natriuretic Peptide (0-100) pg/ml Total Protein 5.0 L (6.0-8.3) gm/dl Albumin 2.3 L (3.4-5.0) gm/dl Globulin 2.7 (2.5-4.0) gm/dl Albumin/Globulin Ratio 0.9 (0.9-2) Procalcitonin (0-0.5) ng/ml Urine Color Urine Appearance (Clear) Urine pH (4.5-7.5) Ur Specific [place] (1.000-1.030) Urine Protein (Negative) Urine Glucose (UA) (Negative) Urine Ketones (Negative) Urine Blood (Negative) Urine Nitrite (Negative) Urine Bilirubin (Negative) Urine Urobilinogen (Negative) Ur Leukocyte Esterase (Negative) Urine WBC (Auto) (0-5) /hpf Urine RBC (Auto) (0-4) /hpf U Hyaline Cast (Auto) (0-5) /lpf U Epithel Cells (Auto) (0-5) /lpf Urine Bacteria (Auto) (Negative) Urine Yeast Urine Sperm (None Prsent) Urine Osmolality (500-800) mOsm/kg Ur Random Creatinine mg/dl Ur Random Sodium mmol/L Ur Random Potassium mmol/L Ur Random Chloride mmol/L Adenovirus (PCR) (NotDetected) B. pertussis DNA (PCR) (NotDetected) B.parapertussis DNA PCR (NotDetected) C. pneumoniae DNA (PCR) (NotDetected) Coronavirus OC43 (PCR) (NotDetected) Coronavirus HKU1 (PCR) (NotDetected) Coronavirus 229E (PCR) (NotDetected) SARS-CoV-2 (PCR) (NotDetected) Coronavirus NL63 (PCR) (NotDetected) Human Metapneumovir PCR (NotDetected) Influenza Type A (PCR) (NotDetected) Influenza Type B (PCR) (NotDetected) M. pneumoniae (PCR) (NotDetected) Parainfluenza 1 (PCR) (NotDetected) Parainfluenza 2 (PCR) (NotDetected) Parainfluenza 3 (PCR) (NotDetected) Parainfluenza 4 (PCR) (NotDetected) RSV (PCR) (NotDetected) Entero/Rhino (PCR) (NotDetected) Blood Type Blood Type Recheck Antibody Screen Crossmatch 08/22/22 08/22/2222 Range/Units 11:40 11:40 12:19 WBC (4.8-10.8) K/ul RBC (4.63-6.08) M/uL Hgb (14.0-18.0) g/dl Hct (40.1-51.0) % MCV (80.0-100.0) fL MCH (25.0-34.0) pg MCHC (32.0-36.0) g/dL RDW Std Deviation (36.4-46.3) fL RDW Coeff of Farrah (11.5-14.5) % Plt Count (130-400) K/uL MPV (9.4-12.4) fL Immature Gran % (Auto) % Neut % (Auto) % Lymph % (Auto) % [place] % (Auto) % Eos % (Auto) % Baso % (Auto) % Neut # (Auto) (1.4-6.5) K/uL Lymph # (Auto) (1.2-3.4) K/uL [place] # (Auto) (0.24-0.82) K/uL Eos # (Auto) (0-0.50) K/uL Baso # (Auto) (0-0.2) K/uL Immature Gran # (Auto) (0.00-0.02) K/uL Echinocytes PT (9.0-12.0) Seconds INR (0.9-1.1) APTT (21.0-31.0) Seconds PTT Ratio VBG pH (7.36-7.41) VBG pCO2 (38-50) mmHg VBG pO2 mmHg VBG HCO3 mmol/L VBG O2 Saturation % VBG Base Excess mEq/L Sodium (136-145) mmol/L Potassium (3.5-5.1) mmol/L Chloride (98-107) mmol/L Carbon Dioxide (21-32) mmol/L Anion Gap (3-11) BUN (6-23) mg/dl Creatinine (0.6-1.4) mg/dl Est Cr Clr Drug Dosing Est GFR ( Amer) ml/min Est GFR (Non-Af Amer) ml/min BUN/Creatinine Ratio (10-20) Glucose (70-99(Fasting)) mg/dl Osmolality 315 H (280-300) mOsm/kg Lactate (0.4-2.0) mmol/L Calcium (8.5-10.1) mg/dl Phosphorus 4.1 (2.5-4.9) mg/dl Magnesium (1.7-2.4) mg/dl Total Bilirubin (0.2-1.0) mg/dl AST (13-39) U/L ALT (7-52) U/L Alkaline Phosphatase (34-104) U/L Troponin I High Sens (0-20) pg/ml B-Natriuretic Peptide (0-100) pg/ml Total Protein (6.0-8.3) gm/dl Albumin (3.4-5.0) gm/dl Globulin (2.5-4.0) gm/dl Albumin/Globulin Ratio (0.9-2) Procalcitonin (0-0.5) ng/ml Urine Color Urine Appearance (Clear) Urine pH (4.5-7.5) Ur Specific [place] (1.000-1.030) Urine Protein (Negative) Urine Glucose (UA) (Negative) Urine Ketones (Negative) Urine Blood (Negative) Urine Nitrite (Negative) Urine Bilirubin (Negative) Urine Urobilinogen (Negative) Ur Leukocyte Esterase (Negative) Urine WBC (Auto) (0-5) /hpf Urine RBC (Auto) (0-4) /hpf U Hyaline Cast (Auto) (0-5) /lpf U Epithel Cells (Auto) (0-5) /lpf Urine Bacteria (Auto) (Negative) Urine Yeast Urine Sperm (None Prsent) Urine Osmolality (500-800) mOsm/kg Ur Random Creatinine mg/dl Ur Random Sodium mmol/L Ur Random Potassium mmol/L Ur Random Chloride mmol/L Adenovirus (PCR) Not Detected (NotDetected) B. pertussis DNA (PCR) Not Detected (NotDetected) B.parapertussis DNA PCR Not Detected (NotDetected) C. pneumoniae DNA (PCR) Not Detected (NotDetected) Coronavirus OC43 (PCR) Not Detected (NotDetected) Coronavirus HKU1 (PCR) Not Detected (NotDetected) Coronavirus 229E (PCR) Not Detected (NotDetected) SARS-CoV-2 (PCR) Not Detected (NotDetected) Coronavirus NL63 (PCR) Not Detected (NotDetected) Human Metapneumovir PCR Not Detected (NotDetected) Influenza Type A (PCR) Not Detected (NotDetected) Influenza Type B (PCR) Not Detected (NotDetected) M. pneumoniae (PCR) Not Detected (NotDetected) Parainfluenza 1 (PCR) Not Detected (NotDetected) Parainfluenza 2 (PCR) Not Detected (NotDetected) Parainfluenza 3 (PCR) Not Detected (NotDetected) Parainfluenza 4 (PCR) Not Detected (NotDetected) RSV (PCR) Not Detected (NotDetected) Entero/Rhino (PCR) Not Detected (NotDetected) Blood Type Blood Type Recheck Antibody Screen Crossmatch 08/22/22 08/22/22 08/22/22 Range/Units 12:34 12:34 12:34 WBC (4.8-10.8) K/ul RBC (4.63-6.08) M/uL Hgb (14.0-18.0) g/dl Hct (40.1-51.0) % MCV (80.0-100.0) fL MCH (25.0-34.0) pg MCHC (32.0-36.0) g/dL RDW Std Deviation (36.4-46.3) fL RDW Coeff of Farrah (11.5-14.5) % Plt Count (130-400) K/uL MPV (9.4-12.4) fL Immature Gran % (Auto) % Neut % (Auto) % Lymph % (Auto) % [place] % (Auto) % Eos % (Auto) % Baso % (Auto) % Neut # (Auto) (1.4-6.5) K/uL Lymph # (Auto) (1.2-3.4) K/uL [place] # (Auto) (0.24-0.82) K/uL Eos # (Auto) (0-0.50) K/uL Baso # (Auto) (0-0.2) K/uL Immature Gran # (Auto) (0.00-0.02) K/uL Echinocytes PT (9.0-12.0) Seconds INR (0.9-1.1) APTT (21.0-31.0) Seconds PTT Ratio VBG pH (7.36-7.41) VBG pCO2 (38-50) mmHg VBG pO2 mmHg VBG HCO3 mmol/L VBG O2 Saturation % VBG Base Excess mEq/L Sodium (136-145) mmol/L Potassium (3.5-5.1) mmol/L Chloride (98-107) mmol/L Carbon Dioxide (21-32) mmol/L Anion Gap (3-11) BUN (6-23) mg/dl Creatinine (0.6-1.4) mg/dl Est Cr Clr Drug Dosing Est GFR ( Amer) ml/min Est GFR (Non-Af Amer) ml/min BUN/Creatinine Ratio (10-20) Glucose (70-99(Fasting)) mg/dl Osmolality (280-300) mOsm/kg Lactate 6.6 H* (0.4-2.0) mmol/L Calcium (8.5-10.1) mg/dl Phosphorus (2.5-4.9) mg/dl Magnesium (1.7-2.4) mg/dl Total Bilirubin (0.2-1.0) mg/dl AST (13-39) U/L ALT (7-52) U/L Alkaline Phosphatase (34-104) U/L Troponin I High Sens (0-20) pg/ml B-Natriuretic Peptide 23 (0-100) pg/ml Total Protein (6.0-8.3) gm/dl Albumin (3.4-5.0) gm/dl Globulin (2.5-4.0) gm/dl Albumin/Globulin Ratio (0.9-2) Procalcitonin (0-0.5) ng/ml Urine Color Urine Appearance (Clear) Urine pH (4.5-7.5) Ur Specific [place] (1.000-1.030) Urine Protein (Negative) Urine Glucose (UA) (Negative) Urine Ketones (Negative) Urine Blood (Negative) Urine Nitrite (Negative) Urine Bilirubin (Negative) Urine Urobilinogen (Negative) Ur Leukocyte Esterase (Negative) Urine WBC (Auto) (0-5) /hpf Urine RBC (Auto) (0-4) /hpf U Hyaline Cast (Auto) (0-5) /lpf U Epithel Cells (Auto) (0-5) /lpf Urine Bacteria (Auto) (Negative) Urine Yeast Urine Sperm (None Prsent) Urine Osmolality (500-800) mOsm/kg Ur Random Creatinine mg/dl Ur Random Sodium mmol/L Ur Random Potassium mmol/L Ur Random Chloride mmol/L Adenovirus (PCR) (NotDetected) B. pertussis DNA (PCR) (NotDetected) B.parapertussis DNA PCR (NotDetected) C. pneumoniae DNA (PCR) (NotDetected) Coronavirus OC43 (PCR) (NotDetected) Coronavirus HKU1 (PCR) (NotDetected) Coronavirus 229E (PCR) (NotDetected) SARS-CoV-2 (PCR) (NotDetected) Coronavirus NL63 (PCR) (NotDetected) Human Metapneumovir PCR (NotDetected) Influenza Type A (PCR) (NotDetected) Influenza Type B (PCR) (NotDetected) M. pneumoniae (PCR) (NotDetected) Parainfluenza 1 (PCR) (NotDetected) Parainfluenza 2 (PCR) (NotDetected) Parainfluenza 3 (PCR) (NotDetected) Parainfluenza 4 (PCR) (NotDetected) RSV (PCR) (NotDetected) Entero/Rhino (PCR) (NotDetected) Blood Type A Positive Blood Type Recheck Antibody Screen NEGATIVE Crossmatch See Detail 08/22/22 08/22/22 08/22/22 Range/Units 12:34 12:34 13:04 WBC (4.8-10.8) K/ul RBC (4.63-6.08) M/uL Hgb (14.0-18.0) g/dl Hct (40.1-51.0) % MCV (80.0-100.0) fL MCH (25.0-34.0) pg MCHC (32.0-36.0) g/dL RDW Std Deviation (36.4-46.3) fL RDW Coeff of Farrah (11.5-14.5) % Plt Count (130-400) K/uL MPV (9.4-12.4) fL Immature Gran % (Auto) % Neut % (Auto) % Lymph % (Auto) % [place] % (Auto) % Eos % (Auto) % Baso % (Auto) % Neut # (Auto) (1.4-6.5) K/uL Lymph # (Auto) (1.2-3.4) K/uL [place] # (Auto) (0.24-0.82) K/uL Eos # (Auto) (0-0.50) K/uL Baso # (Auto) (0-0.2) K/uL Immature Gran # (Auto) (0.00-0.02) K/uL Echinocytes PT (9.0-12.0) Seconds INR (0.9-1.1) APTT (21.0-31.0) Seconds PTT Ratio VBG pH 7.35 L (7.36-7.41) VBG pCO2 32 L (38-50) mmHg VBG pO2 22 mmHg VBG HCO3 18 mmol/L VBG O2 Saturation < 60.0 % VBG Base Excess -6.8 mEq/L Sodium (136-145) mmol/L Potassium (3.5-5.1) mmol/L Chloride (98-107) mmol/L Carbon Dioxide (21-32) mmol/L Anion Gap (3-11) BUN (6-23) mg/dl Creatinine (0.6-1.4) mg/dl Est Cr Clr Drug Dosing Est GFR ( Amer) ml/min Est GFR (Non-Af Amer) ml/min BUN/Creatinine Ratio (10-20) Glucose (70-99(Fasting)) mg/dl Osmolality (280-300) mOsm/kg Lactate (0.4-2.0) mmol/L Calcium (8.5-10.1) mg/dl Phosphorus (2.5-4.9) mg/dl Magnesium (1.7-2.4) mg/dl Total Bilirubin (0.2-1.0) mg/dl AST (13-39) U/L ALT (7-52) U/L Alkaline Phosphatase (34-104) U/L Troponin I High Sens (0-20) pg/ml B-Natriuretic Peptide (0-100) pg/ml Total Protein (6.0-8.3) gm/dl Albumin (3.4-5.0) gm/dl Globulin (2.5-4.0) gm/dl Albumin/Globulin Ratio (0.9-2) Procalcitonin 0.72 H (0-0.5) ng/ml Urine Color Urine Appearance (Clear) Urine pH (4.5-7.5) Ur Specific [place] (1.000-1.030) Urine Protein (Negative) Urine Glucose (UA) (Negative) Urine Ketones (Negative) Urine Blood (Negative) Urine Nitrite (Negative) Urine Bilirubin (Negative) Urine Urobilinogen (Negative) Ur Leukocyte Esterase (Negative) Urine WBC (Auto) (0-5) /hpf Urine RBC (Auto) (0-4) /hpf U Hyaline Cast (Auto) (0-5) /lpf U Epithel Cells (Auto) (0-5) /lpf Urine Bacteria (Auto) (Negative) Urine Yeast Urine Sperm (None Prsent) Urine Osmolality (500-800) mOsm/kg Ur Random Creatinine mg/dl Ur Random Sodium mmol/L Ur Random Potassium mmol/L Ur Random Chloride mmol/L Adenovirus (PCR) (NotDetected) B. pertussis DNA (PCR) (NotDetected) B.parapertussis DNA PCR (NotDetected) C. pneumoniae DNA (PCR) (NotDetected) Coronavirus OC43 (PCR) (NotDetected) Coronavirus HKU1 (PCR) (NotDetected) Coronavirus 229E (PCR) (NotDetected) SARS-CoV-2 (PCR) (NotDetected) Coronavirus NL63 (PCR) (NotDetected) Human Metapneumovir PCR (NotDetected) Influenza Type A (PCR) (NotDetected) Influenza Type B (PCR) (NotDetected) M. pneumoniae (PCR) (NotDetected) Parainfluenza 1 (PCR) (NotDetected) Parainfluenza 2 (PCR) (NotDetected) Parainfluenza 3 (PCR) (NotDetected) Parainfluenza 4 (PCR) (NotDetected) RSV (PCR) (NotDetected) Entero/Rhino (PCR) (NotDetected) Blood Type Blood Type Recheck A Positive Antibody Screen Crossmatch 08/22/22 08/22/22 08/22/22 Range/Units 14:35 15:45 15:45 WBC (4.8-10.8) K/ul RBC (4.63-6.08) M/uL Hgb (14.0-18.0) g/dl Hct (40.1-51.0) % MCV (80.0-100.0) fL MCH (25.0-34.0) pg MCHC (32.0-36.0) g/dL RDW Std Deviation (36.4-46.3) fL RDW Coeff of Farrah (11.5-14.5) % Plt Count (130-400) K/uL MPV (9.4-12.4) fL Immature Gran % (Auto) % Neut % (Auto) % Lymph % (Auto) % [place] % (Auto) % Eos % (Auto) % Baso % (Auto) % Neut # (Auto) (1.4-6.5) K/uL Lymph # (Auto) (1.2-3.4) K/uL [place] # (Auto) (0.24-0.82) K/uL Eos # (Auto) (0-0.50) K/uL Baso # (Auto) (0-0.2) K/uL Immature Gran # (Auto) (0.00-0.02) K/uL Echinocytes PT (9.0-12.0) Seconds INR (0.9-1.1) APTT (21.0-31.0) Seconds PTT Ratio VBG pH (7.36-7.41) VBG pCO2 (38-50) mmHg VBG pO2 mmHg VBG HCO3 mmol/L VBG O2 Saturation % VBG Base Excess mEq/L Sodium (136-145) mmol/L Potassium (3.5-5.1) mmol/L Chloride (98-107) mmol/L Carbon Dioxide (21-32) mmol/L Anion Gap (3-11) BUN (6-23) mg/dl Creatinine (0.6-1.4) mg/dl Est Cr Clr Drug Dosing Est GFR ( Amer) ml/min Est GFR (Non-Af Amer) ml/min BUN/Creatinine Ratio (10-20) Glucose (70-99(Fasting)) mg/dl Osmolality (280-300) mOsm/kg Lactate 7.3 H* (0.4-2.0) mmol/L Calcium (8.5-10.1) mg/dl Phosphorus (2.5-4.9) mg/dl Magnesium (1.7-2.4) mg/dl Total Bilirubin (0.2-1.0) mg/dl AST (13-39) U/L ALT (7-52) U/L Alkaline Phosphatase (34-104) U/L Troponin I High Sens (0-20) pg/ml B-Natriuretic Peptide (0-100) pg/ml Total Protein (6.0-8.3) gm/dl Albumin (3.4-5.0) gm/dl Globulin (2.5-4.0) gm/dl Albumin/Globulin Ratio (0.9-2) Procalcitonin (0-0.5) ng/ml Urine Color Dark Yellow Urine Appearance Turbid A (Clear) Urine pH 5.5 (4.5-7.5) Ur Specific [place] 1.024 (1.000-1.030) Urine Protein 2+ H (Negative) Urine Glucose (UA) Negative (Negative) Urine Ketones Negative (Negative) Urine Blood Trace H (Negative) Urine Nitrite Negative (Negative) Urine Bilirubin Negative (Negative) Urine Urobilinogen Negative (Negative) Ur Leukocyte Esterase Negative (Negative) Urine WBC (Auto) >30 H (0-5) /hpf Urine RBC (Auto) 0-4 (0-4) /hpf U Hyaline Cast (Auto) 10-30 H (0-5) /lpf U Epithel Cells (Auto) 10-20 H (0-5) /lpf Urine Bacteria (Auto) 2+ H (Negative) Urine Yeast Not Reportable Urine Sperm Present A (None Prsent) Urine Osmolality 586 (500-800) mOsm/kg Ur Random Creatinine mg/dl Ur Random Sodium mmol/L Ur Random Potassium mmol/L Ur Random Chloride mmol/L Adenovirus (PCR) (NotDetected) B. pertussis DNA (PCR) (NotDetected) B.parapertussis DNA PCR (NotDetected) C. pneumoniae DNA (PCR) (NotDetected) Coronavirus OC43 (PCR) (NotDetected) Coronavirus HKU1 (PCR) (NotDetected) Coronavirus 229E (PCR) (NotDetected) SARS-CoV-2 (PCR) (NotDetected) Coronavirus NL63 (PCR) (NotDetected) Human Metapneumovir PCR (NotDetected) Influenza Type A (PCR) (NotDetected) Influenza Type B (PCR) (NotDetected) M. pneumoniae (PCR) (NotDetected) Parainfluenza 1 (PCR) (NotDetected) Parainfluenza 2 (PCR) (NotDetected) Parainfluenza 3 (PCR) (NotDetected) Parainfluenza 4 (PCR) (NotDetected) RSV (PCR) (NotDetected) Entero/Rhino (PCR) (NotDetected) Blood Type Blood Type Recheck Antibody Screen Crossmatch 08/22/22 Range/Units 15:45 WBC (4.8-10.8) K/ul RBC (4.63-6.08) M/uL Hgb (14.0-18.0) g/dl Hct (40.1-51.0) % MCV (80.0-100.0) fL MCH (25.0-34.0) pg MCHC (32.0-36.0) g/dL RDW Std Deviation (36.4-46.3) fL RDW Coeff of Farrah (11.5-14.5) % Plt Count (130-400) K/uL MPV (9.4-12.4) fL Immature Gran % (Auto) % Neut % (Auto) % Lymph % (Auto) % [place] % (Auto) % Eos % (Auto) % Baso % (Auto) % Neut # (Auto) (1.4-6.5) K/uL Lymph # (Auto) (1.2-3.4) K/uL [place] # (Auto) (0.24-0.82) K/uL Eos # (Auto) (0-0.50) K/uL Baso # (Auto) (0-0.2) K/uL Immature Gran # (Auto) (0.00-0.02) K/uL Echinocytes PT (9.0-12.0) Seconds INR (0.9-1.1) APTT (21.0-31.0) Seconds PTT Ratio VBG pH (7.36-7.41) VBG pCO2 (38-50) mmHg VBG pO2 mmHg VBG HCO3 mmol/L VBG O2 Saturation % VBG Base Excess mEq/L Sodium (136-145) mmol/L Potassium (3.5-5.1) mmol/L Chloride (98-107) mmol/L Carbon Dioxide (21-32) mmol/L Anion Gap (3-11) BUN (6-23) mg/dl Creatinine (0.6-1.4) mg/dl Est Cr Clr Drug Dosing Est GFR ( Amer) ml/min Est GFR (Non-Af Amer) ml/min BUN/Creatinine Ratio (10-20) Glucose (70-99(Fasting)) mg/dl Osmolality (280-300) mOsm/kg Lactate (0.4-2.0) mmol/L Calcium (8.5-10.1) mg/dl Phosphorus (2.5-4.9) mg/dl Magnesium (1.7-2.4) mg/dl Total Bilirubin (0.2-1.0) mg/dl AST (13-39) U/L ALT (7-52) U/L Alkaline Phosphatase (34-104) U/L Troponin I High Sens (0-20) pg/ml B-Natriuretic Peptide (0-100) pg/ml Total Protein (6.0-8.3) gm/dl Albumin (3.4-5.0) gm/dl Globulin (2.5-4.0) gm/dl Albumin/Globulin Ratio (0.9-2) Procalcitonin (0-0.5) ng/ml Urine Color Urine Appearance (Clear) Urine pH (4.5-7.5) Ur Specific [place] (1.000-1.030) Urine Protein (Negative) Urine Glucose (UA) (Negative) Urine Ketones (Negative) Urine Blood (Negative) Urine Nitrite (Negative) Urine Bilirubin (Negative) Urine Urobilinogen (Negative) Ur Leukocyte Esterase (Negative) Urine WBC (Auto) (0-5) /hpf Urine RBC (Auto) (0-4) /hpf U Hyaline Cast (Auto) (0-5) /lpf U Epithel Cells (Auto) (0-5) /lpf Urine Bacteria (Auto) (Negative) Urine Yeast Urine Sperm (None Prsent) Urine Osmolality (500-800) mOsm/kg Ur Random Creatinine 178.0 mg/dl Ur Random Sodium 31 mmol/L Ur Random Potassium 103.4 mmol/L Ur Random Chloride 15 mmol/L Adenovirus (PCR) (NotDetected) B. pertussis DNA (PCR) (NotDetected) B.parapertussis DNA PCR (NotDetected) C. pneumoniae DNA (PCR) (NotDetected) Coronavirus OC43 (PCR) (NotDetected) Coronavirus HKU1 (PCR) (NotDetected) Coronavirus 229E (PCR) (NotDetected) SARS-CoV-2 (PCR) (NotDetected) Coronavirus NL63 (PCR) (NotDetected) Human Metapneumovir PCR (NotDetected) Influenza Type A (PCR) (NotDetected) Influenza Type B (PCR) (NotDetected) M. pneumoniae (PCR) (NotDetected) Parainfluenza 1 (PCR) (NotDetected) Parainfluenza 2 (PCR) (NotDetected) Parainfluenza 3 (PCR) (NotDetected) Parainfluenza 4 (PCR) (NotDetected) RSV (PCR) (NotDetected) Entero/Rhino (PCR) (NotDetected) Blood Type Blood Type Recheck Antibody Screen Crossmatch Administered Medications Albuterol (Albut/Ipratrop 3mg/0.5mg Neb 3 Ml Vial) 3 ml NEB QIDR [facility]; Protocol Stop: 09/21/22 18:59 Last Admin: 08/22/22 18:08 Dose: Not Given Documented By: KORINA Budesonide (Budesonide 0.5 Mg/2 Ml Vial (Pulmicort)) 0.5 mg NEB BIDR [facility] Stop: 09/21/22 18:59 Last Admin: 08/22/22 18:08 Dose: Not Given Documented By: KORINA Pantoprazole Sodium 40 mg/ (Dextrose) 100 mls @ 20 mls/hr IV Q5H [facility] Stop: 09/21/22 13:29 Last Admin: 08/22/22 21:04 Dose: 8 mg/hr, 20 mls/hr Documented By: Infusion: 08/22/22 21:04 Dose: 8 mg/hr, 20 mls/hr Documented By: Admin: 08/22/22 17:26 Dose: 8 mg/hr, 20 mls/hr Documented By: KAM Octreotide Acetate 500 mcg/ (Dextrose) 100.5 mls @ 10.05 mls/hr IV .Q10H [facility] Stop: 09/21/22 14:44 Last Admin: 08/22/22 20:39 Dose: Not Given Documented By: CONSTANTINO Ceftriaxone Sodium 2,000 mg/ (Dextrose) 70 mls @ 100 mls/hr IV Q24H [facility]; Protocol Stop: 09/01/22 20:14 Last Infusion: 08/22/22 21:42 Dose: 0 mls/hr Documented By: EmaT Admin: 08/22/22 20:54 Dose: 100 mls/hr Documented By: CONSTANTINO Sodium Bicarbonate 150 meq/ (Dextrose) 1,150 mls @ 150 mls/hr IV .Q7H40M [facility] Stop: 09/21/22 20:29 Last Admin: 08/22/22 20:54 Dose: 150 mls/hr Documented By: CONSTANTINO Miscellaneous (Icu Protocol For Hyperglycemia) 1 each N/A ACHS [facility] Stop: 08/24/22 19:53 Last Admin: 08/22/22 21:40 Dose: Not Given Documented By: Admin: 08/22/22 21:06 Dose: Not Given Documented By: CONSTANTINO Discontinued Medications Albuterol (Albut/Ipratrop 3mg/0.5mg Neb 3 Ml Vial) 3 ml NEB NOW STA; Protocol Stop: 08/22/22 14:55 Last Admin: 08/22/22 15:31 Dose: 3 ml Documented By: AM Albuterol (Albut/Ipratrop 3mg/0.5mg Neb 3 Ml Vial) 12 ml NEB ONE ONE; Protocol Stop: 08/22/22 15:32 Last Admin: 08/22/22 15:57 Dose: 12 ml Documented By: EAM Albuterol (Albuterol 0.083% Nebu Soln 3 Ml Vial) 2.5 mg NEB NOW STA; Protocol Stop: 08/22/22 19:15 Last Admin: 08/22/22 20:22 Dose: Not Given Documented By: CS Albuterol (Albuterol 0.083% Nebu Soln 3 Ml Vial) Confirm Administered Dose 2.5 mg .ROUTE .STK-MED ONE Stop: 08/22/22 19:44 Last Admin: 08/22/22 19:45 Dose: 2.5 mg Documented By: CS Arformoterol Tartrate (Arformoterol Tart 15mcg/2ml Vial) 15 mcg INH BIDR [facility] Stop: 09/21/22 18:59 Last Admin: 08/22/22 18:09 Dose: Not Given Documented By: EAM Budesonide (Budesonide 0.5 Mg/2 Ml Vial (Pulmicort)) 0.5 mg NEB NOW STA Stop: 08/22/22 19:19 Last Admin: 08/22/22 19:45 Dose: 0.5 mg Documented By: CS Dextrose (Dextrose 50% 50 Ml Syringe) 100 ml IV NOW ONE Stop: 08/22/22 13:03 Last Admin: 08/22/22 14:35 Dose: 100 ml Documented By: AM Calcium Gluconate () 1,000 mg in 60 mls @ 240 mls/hr IV Q15M [facility] Stop: 08/22/22 13:59 Last Infusion: 08/22/22 15:33 Dose: 0 mls/hr Documented By: Admin: 08/22/22 15:17 Dose: 240 mls/hr Documented By: Infusion: 08/22/22 15:17 Dose: 240 mls/hr Documented By: Admin: 08/22/22 15:03 Dose: 240 mls/hr Documented By: Infusion: 08/22/22 14:50 Dose: 240 mls/hr Documented By: Admin: 08/22/22 14:35 Dose: 240 mls/hr Documented By: AM Sodium Chloride (Nss) 500 mls @ 999 mls/hr IV .Q31M ONE Stop: 08/22/22 13:35 Last Infusion: 08/22/22 15:08 Dose: 0 mls/hr Documented By: Admin: 08/22/22 13:54 Dose: 999 mls/hr Documented By: AM Cefepime HCl (Maxipime) 2,000 mg in 20 mls @ 5 mls/min IV NOW STA; Protocol Stop: 08/22/22 13:09 Last Admin: 08/22/22 13:54 Dose: 5 mls/min Documented By: AM Pantoprazole Sodium (Protonix Bolus/Drip) 0 mls @ 1 mls/hr IV ONE STA Stop: 08/22/22 13:07 Last Admin: 08/22/22 15:09 Dose: Not Given Documented By: AM Pantoprazole Sodium 80 mg/ (Dextrose) 120 mls @ 400 mls/hr IV NOW ONE Stop: 08/22/22 13:23 Last Infusion: 08/22/22 15:08 Dose: 0 mls/hr Documented By: Admin: 08/22/22 14:40 Dose: 400 mls/hr Documented By: AM Octreotide Acetate 50 mcg/ (Syringe) 10 mls @ 3 mls/min IV ONE STA Stop: 08/22/22 14:40 Last Admin: 08/22/22 20:33 Dose: Not Given Documented By: CONSTANTINO Metronidazole (Flagyl) 500 mg in 100 mls @ 100 mls/hr IV NOW STA Stop: 08/22/22 15:57 Last Infusion: 08/22/22 20:42 Dose: 0 mls/hr Documented By: Admin: 08/22/22 17:57 Dose: 100 mls/hr Documented By: [facility] Vancomycin HCl 2,250 mg/ (Sodium Chloride) 545 mls @ 200 mls/hr IV NOW ONE Stop: 08/22/22 17:41 Last Admin: 08/22/22 17:31 Dose: 200 mls/hr Documented By: [facility] Phytonadione 5 mg/ Dextrose 50.5 mls @ 101 mls/hr IV ONE ONE Stop: 08/22/22 15:33 Last Infusion: 08/22/22 20:43 Dose: 0 mls/hr Documented By: Admin: 08/22/22 17:10 Dose: 101 mls/hr Documented By: [facility] Erythromycin Lactobionate 250 (mg/ Sodium Chloride) 255 mls @ 250 mls/hr IV NOW ONE Stop: 08/22/22 17:01 Last Admin: 08/22/22 17:30 Dose: Not Given Documented By: IEG Parenteral Electrolytes (Normosol-R) 1,000 mls @ 999 mls/hr IV .Q1H1M ONE Stop: 08/22/22 16:38 Last Admin: 08/22/22 20:40 Dose: Not Given Documented By: CONSTANTINO Lactated Ringer's (Lr) 1,000 mls @ 80 mls/hr IV .[id number] [facility] Stop: 09/21/22 19:53 Last Admin: 08/22/22 20:44 Dose: Not Given Documented By: JT Magnesium Sulfate/Dextrose (Magnesium Sulfate / D5w) 1 gm in 100 mls @ 50 mls/hr IV Q2H [facility] Stop: 08/23/22 00:44 Last Admin: 08/22/22 23:12 Dose: 50 mls/hr Documented By: Infusion: 08/22/22 23:04 Dose: 3 mls/hr Documented By: Admin: 08/22/22 21:04 Dose: 50 mls/hr Documented By: EmaT Parenteral Electrolytes (Normosol-R) 500 mls @ 999 mls/hr IV .Q31M ONE Stop: 08/22/22 23:50 Last Admin: 08/22/22 23:50 Dose: 999 mls/hr Documented By: Insulin Human Regular (Novolin-R Insulin Per Unit Charge) 10 units IV NOW STA Stop: 08/22/22 13:03 Last Admin: 08/22/22 14:33 Dose: 10 units Documented By: AM Co-signed By: KISHOR Ioversol (Optiray 320 500ml) 99 ml IV ONCE ONE Stop: 08/22/22 13:50 Last Admin: 08/22/22 13:49 Dose: 99 ml Documented By: ANANT Lorazepam (Lorazepam 2 Mg/1 Ml Vial) 0.5 mg IV NOW STA Stop: 08/22/22 14:55 Last Admin: 08/22/22 15:34 Dose: 0.5 mg Documented By: AM Methylprednisolone (Methylprednisolone 125 Mg/2 Ml Vial) 125 mg IV NOW STA Stop: 08/22/22 14:55 Last Admin: 08/22/22 15:48 Dose: 125 mg Documented By: AM Miscellaneous (Stat Iv) 1 each N/A NOW STA Stop: 08/22/22 14:38 Last Admin: 08/22/22 20:33 Dose: Not Given Documented By: JT Sodium Bicarbonate (Sodium Bicarb 8.4% Inj 50 Meq/50 Ml Syr) 100 meq IV ONCE STA Stop: 08/22/22 15:42 Last Admin: 08/22/22 16:17 Dose: 100 meq Documented By: AM Imaging Data Radiologist's Impression: Abdomen/Pelvis CT 08/22/22 13:02 CT OF THE ABDOMEN AND PELVIS WITH CONTRAST CLINICAL HISTORY: Bilateral lower extremity edema. GI bleed. COMPARISON STUDY: None. TECHNIQUE: Following IV administration of Optiray, axial images of the abdomen and pelvis were obtained from the lung bases to the proximal femurs. Images were reviewed in the axial, sagittal, and coronal planes. IV contrast was administered without complication. Automated exposure control was utilized for the study. A dose lowering technique was utilized adhering to the principles of ALARA. FINDINGS: Emphysema within the lower lungs. Small right and trace left pleural effusions are noted. The chest CT will be reported separately. There is a small hiatal hernia. Distal esophageal wall thickening is noted. 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 Moderate gastric wall thickening is noted. Hyperdense material within the distal stomach is noted. The liver is cirrhotic. No hepatic lesions are identified on this portal venous phase exam. The main, left and right portal veins are patent. Size of the spleen is normal. Moderate abdominal and pelvic ascites is present. There is no evidence for a bowel obstruction. Mild nonspecific jejunal wall thickening is present. A small amount of ascites with a right inguinal hernia is present. There is no hydronephrosis. A 3.9 cm cyst within the upper pole of the right kidney is present. No biliary or pancreatic ductal dilatation is present. Major vasculature is patent. There are no acute fractures within the visualized skeletal structures. IMPRESSION: 1. Cirrhosis with manifestations of portal hypertension including varices and moderate ascites. 2. Mild gastric wall thickening and prominent mucosal enhancement. This is nonspecific although may reflect gastritis. Hyperdense material within the distal stomach which likely reflects ingested contents however clot could appear similar. 3. No bowel obstruction. Jejunal wall thickening. This is also nonspecific and could be due to to portal hypertension or hypoalbuminemia. 4. Moderate right and trace left pleural effusions. 5. Small hiatal hernia with distal esophageal wall thickening which may reflect esophagitis. ACT 112: Negative or not required by law. Electronically signed by: North Andrade M.D. 08/22/2022 2:08 PM Chest CTA 08/22/22 13:02 CT ANGIOGRAPHY OF THE CHEST, PULMONARY EMBOLUS PROTOCOL CLINICAL HISTORY: Shortness of breath. Evaluate for pulmonary embolus. COMPARISON STUDY: Chest radiograph performed earlier today. TECHNIQUE: Following IV administration of 99 mL of Optiray, helical axial images of the chest were obtained utilizing the pulmonary embolus protocol. Maximal intensity projections and sagittal and coronal reformats were viewed on an independent 3D workstation. IV contrast was administered without complication. Automated exposure control was utilized for the study. A dose lowering technique was utilized adhering to the principles of ALARA. CT DOSE: 1184.66 mGy.cm FINDINGS: No central or lobar pulmonary emboli identified. Remainder of the pulmonary arteries are suboptimally assessed due to significant respiratory motion artifact. There is no thoracic aortic dissection. Size of the heart is normal. There is no thoracic lymphadenopathy. Small right and trace left pleural effusions is noted. Associated airspace opacities favor atelectasis. Emphysema is present. Lungs are suboptimally assessed due to respiratory motion. No consolidation to suggest pneumonia. No pneumothorax. A small hiatal hernia is noted with distal esophageal wall thickening. Trace fluid within the cul-de-sac is noted. Hyperdense within visualized portions of the stomach are noted. Cirrhosis with upper abdominal ascites is visualized within the upper abdomen. IMPRESSION: 1. No pulmonary emboli identified although exam significantly compromised by respiratory motion. 2. Small right and trace left pleural effusions. 3. Emphysema. 4. Small hiatal hernia with distal esophageal wall thickening which is nonspecific but may reflect esophagitis. 5. Hyperdense contents within the stomach. This likely reflects ingested material however clot could appear similar. 6. Cirrhosis with upper abdominal ascites. ACT 112: Negative or not required by law. Electronically signed by: North Andrade M.D. 08/22/2022 2:07 PM Discharge Plan Visit Data Chief Complaint: Shortness of Breath/Dyspnea Stated Complaint: CANT BREATH ED Provider: Damaso Girard Discharge Problem: Upper GI bleed, Coagulopathy, Lactic acidosis, Hyperkalemia, Pneumonia, Cirrhosis, COPD exacerbation, Symptomatic anemia Patient Disposition: Admitted As Inpatient Discharge Instructions Interventions: ED Discharge Assessment Last Done: 08/22/22 16:57
[2022-08-22] MEDS ORDERED: ERYTHROMYCIN 250 MG in SODIUM CHLORIDE 0.9% 250 ML IV ONE (16:00)
--- NOTE | 2022-08-22 16:00 | Gastrointestinal Consultation ---
Date of Consultation August 22, 2022 History of Present Illness History of Present Illness 51 yo M presented with marked SOB, maroon stool x 1 day. On presentation, he has sinus tachy to 120; O2 sat 93 on 2 L, 85-88 on RA; normotensive. He had imaging which showed mod ascites, varices, cirrhosis without PVT, blood in stomach. He is not known to have cirrhosis, but does have a h/o HCV. + recent NSAID use. He has received 1 U PRBC in ER. PE: In mod distress. He is able to lie flat, but has incr WOB and some accessory muscle use. CV: Tachy, no m Lungs: diffuse wheezing. ABd: not obviously distended, no tender throughout. Rectal: no stool in vault, scant dark red blood on glove. His labs show hgb 6.7 with macrocytosis, plts 250, INR 1.9. BUN is [address] reviewed -- note that pt has not had food today. A/P: Cirrhosis Ascites GIB - DDX GIB = varices, PHG, PUD. He has resp insufficiency and normotensive tachy cardia, but I still believe that benefits of EGD/sedation outweigh the risks, given possibly variceal etiology, low hgb/increased BUN, and presence of blood in stomach on CT. Allergies Allergy/AdvReac Type Severity Reaction Status Date / Time No Known Allergies Allergy Unverified 08/22/22 15:39 Home Medications Medication Instructions Recorded Confirmed Type albuterol sulfate 90 mcg/actuation 1 puff inhalation Q4H PRN Wheezing 08/22/22 08/22/22 History aerosol inhaler azithromycin 250 mg tablet 250 mg PO DAILY 08/22/22 08/22/22 History famotidine 20 mg tablet 20 mg PO BID 08/22/22 08/22/22 History ibuprofen 600 mg tablet 600 mg PO TID PRN Pain 08/22/22 08/22/22 History mirtazapine 15 mg tablet 15 mg PO HS 08/22/22 08/22/22 History paroxetine HCl 20 mg tablet 20 mg PO DAILY 08/22/22 08/22/22 History Patient History Medical History Anxiety Cirrhosis History of intravenous drug abuse Past use of tobacco Social History Smoking Status: Former smoker Tobacco Type: Cigarettes Age Started Using Tobacco: 9; Age Quit Using Tobacco: 51; packs per day: 0.5; Hx Alcohol Use: No (Past etoh) Hx Substance Use: Yes Non-Prescribed Medications: IV Drugs Last Used Substance Other:: 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 Preferred Language: Citizen Of [place] Feels Safe at Home: Yes Results & Data ([facility]) Vital Signs (Past 12 Hours) Vital Signs Temp Pulse Resp BP Pulse Ox O2 Del Method O2 Flow Rate 08/22/22 15:45 120 H 18 97 08/22/22 15:45 142/77 H 08/22/22 15:30 121 H 21 94 08/22/22 15:30 132/85 Nasal Cannula 2 08/22/22 15:15 125 H 23 90 08/22/22 15:15 119/70 08/22/22 15:00 122 H 20 94 08/22/22 15:00 122/71 08/22/22 15:15 36.4 C L 08/22/22 15:15 121 H 23 119/70 93 2 08/22/22 14:45 122 H 20 95 08/22/22 14:45 124/71 08/22/22 14:41 118 H 19 94 08/22/22 14:41 130/76 08/22/22 14:30 118 H 20 92 08/22/22 14:00 120 H 20 94 08/22/22 13:53 117 H 16 96 08/22/22 13:53 137/78 08/22/22 13:48 124 H 20 08/22/22 15:00 36.4 C L 121 H 20 122/71 94 08/22/22 14:00 89 L Room Air 0 08/22/22 14:44 36.6 C 120 H 24 124/71 94 2 08/22/22 13:00 112 H 19 08/22/22 12:30 110 H 16 08/22/22 12:16 95/65 L 08/22/22 12:16 107 H 19 92 08/22/22 12:00 103 H 14 92 08/22/22 11:30 110 H 13 91 08/22/22 11:14 105 H 16 91 08/22/22 11:09 91 Room Air 0 08/22/22 10:54 36.5 C 111 H 20 115/65 93 Room Air
[2022-08-22 16:27] LABS: Appearance Urine Turbid (Clear); Bacteria Urine Automated 2+ (Negative); Bilirubin Urine Negative (Negative); Blood Urine Trace (Negative); Color Urine Dark Yellow; Glucose Urine UA Negative (Negative); Ketones Urine Negative (Negative); Leukocyte Esterase Urine Negative (Negative); Nitrite Urine Negative (Negative); Protein Urine 2+ (Negative); Specific Gravity Urine 1.024 (1.000-1.030); Urobilinogen Urine Negative (Negative); WBC Urine Automated >30 /hpf (0-5); pH Urine 5.5 (4.5-7.5)
[2022-08-22 16:48] LABS: RBC Urine Automated 0-4 /hpf (0-4); Sperm Urine Present (None Prsent)
--- NOTE | 2022-08-22 16:49 | Anesthesiology Consultation ---
Date of Service August 22, 2022 Assessment & Plan (1) Encounter for pre-operative examination: Chart Review Chart Review: Acceptable Risk for Surgery (Emergent procedure for bleeding) History Surgery Operation Date: 08/22/22 16:20 Proposed Procedures p EGD Hemostasis - Bryan Hoffman MD Height/Weight Height: 5 ft 10 in Weight: 93 kg Allergies Allergy/AdvReac Type Severity Reaction Status Date / Time No Known Allergies Allergy Unverified 08/22/22 15:39 Medications Home Medications Medication Instructions Recorded Confirmed Last Taken albuterol sulfate 90 mcg/actuation 1 puff inhalation Q4H PRN Wheezing 08/22/22 08/22/22 Unknown aerosol inhaler azithromycin 250 mg tablet 250 mg PO DAILY 08/22/22 08/22/22 Unknown famotidine 20 mg tablet 20 mg PO BID 08/22/22 08/22/22 Unknown ibuprofen 600 mg tablet 600 mg PO TID PRN Pain 08/22/22 08/22/22 Unknown mirtazapine 15 mg tablet 15 mg PO HS 08/22/22 08/22/22 08/21/22 paroxetine HCl 20 mg tablet 20 mg PO DAILY 08/22/22 08/22/22 08/21/22 Past Medical History Medical History Acute on chronic blood loss anemia Anxiety Cirrhosis COPD (chronic obstructive pulmonary disease) History of intravenous drug abuse Past use of tobacco Social History Smoking Status: Former smoker Hx Alcohol Use: No (Past etoh) Hx Substance Use: Yes Last Used Substance Other:: 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 Physical Exam Vital Signs Last Vital Signs Temp 36.4 C L 08/22/22 15:15 Pulse 120 H 08/22/22 16:15 Resp 16 08/22/22 16:15 BP 151/60 H 08/22/22 16:15 Pulse Ox 98 08/22/22 16:15 O2 Del Method 08/22/22 15:57 O2 Flow Rate 2 08/22/22 15:57 Testing Laboratory Results 08/22/22 11:40 08/22/22 11:40 PT 18.1 Seconds (9.0-12.0) H 08/22/22 11:40 INR 1.8 (0.9-1.1) H 08/22/22 11:40 APTT 25.5 Seconds (21.0-31.0) 08/22/22 11:40 Urine Color Dark Yellow 08/22/22 15:45 Urine Appearance Turbid (Clear) A 08/22/22 15:45 Urine pH 5.5 (4.5-7.5) 08/22/22 15:45 Ur Specific [place] 1.024 (1.000-1.030) 08/22/22 15:45 Urine Protein 2+ (Negative) H 08/22/22 15:45 Urine Glucose (UA) Negative (Negative) 08/22/22 15:45 Urine Ketones Negative (Negative) 08/22/22 15:45 Urine Nitrite Negative (Negative) 08/22/22 15:45 Ur Leukocyte Esterase Negative (Negative) 08/22/22 15:45 Blood Type A Positive 08/22/22 12:34 Antibody Screen NEGATIVE 08/22/22 12:34 Electrocardiogram Date: 08/22/22 Findings: + NSR @ (580)
[2022-08-22] MEDS ORDERED: SUGAMMADEX SODIUM 200 MG/2 ML VIAL IV ONE (16:50)
[2022-08-22] MEDS ORDERED: PROPOFOL IV EMULSION 10 MG/ML 20 ML VIAL IV ONE (16:55)
[2022-08-22] MEDS ORDERED: ROCURONIUM BROMIDE 10 MG/ML 5 ML VIAL IV ONE (16:55)
[2022-08-22] MEDS ORDERED: ETOMIDATE 2 MG/ML 20 ML VIAL IV ONE (16:55)
[2022-08-22 17:06] LABS: Potassium Random Urine 103.4 mmol/L
--- NOTE | 2022-08-22 17:14 | History & Physical Bridge Note ---
Date of Service August 22, 2022 History & Physical Bridge Note I have examined the patient, reviewed the History & Physical and in the interval since the performance of the History & Physical I have noted the following changes of clinical significance: no changes noted
[2022-08-22] MEDS ORDERED: fentaNYL citrate 100 MCG/2 ML VIAL ONE (17:24)
[2022-08-22] MEDS: PANTOprazole 40 MG in DEXTROSE 5% 100 ML IV SCH ×2 (17:26→21:04)
[2022-08-22] MEDS: ALBUT/IPRATROP 3MG/0.5MG NEB 3 ML VIAL NEB SCH (18:08)
[2022-08-22] MEDS: BUDESONIDE 0.5 MG/2 ML VIAL (PULMICORT) NEB SCH (18:08)
[2022-08-22] MEDS ORDERED: LIDOCAINE 2% MPF LOCAL 5 ML VIAL INFIL ONE (18:59)
[2022-08-22] MEDS ORDERED: ARFORMOTEROL TART 15MCG/2ML VIAL INH SCH (19:00)
[2022-08-22] MEDS ORDERED: ALBUTEROL 0.083% NEBU SOLN 3 ML VIAL NEB STA (19:14)
[2022-08-22] MEDS ORDERED: BUDESONIDE 0.5 MG/2 ML VIAL (PULMICORT) NEB STA (19:18)
[2022-08-22] MEDS ORDERED: ALBUTEROL 0.083% NEBU SOLN 3 ML VIAL INH PRN (19:33)
[2022-08-22] MEDS ORDERED: ATROPINE SULFATE 0.1 MG/ML 10ML SYR IV PRN (19:33)
[2022-08-22] MEDS ORDERED: ONDANSETRON INJ 2 MG/ML 2 ML VIAL IV PRN (19:33)
[2022-08-22] MEDS ORDERED: ePHEDrine sulfate 50 MG/ML AMP IV PRN (19:33)
[2022-08-22] MEDS ORDERED: fentaNYL citrate 100 MCG/2 ML VIAL IV PRN (19:33)
--- NOTE | 2022-08-22 19:37 | Anesthesiology Progress Note ---
Date of Service August 22, 2022 Anesthesia Post Procedure Vital Signs Vital Signs: Temp Pulse Pulse Resp BP Pulse Ox O2 Del Method 08/22/22 19:26 126 H 24 93 Oxymask 08/22/22 16:30 125 H 15 99 Aerosol Mask 08/22/22 16:30 132/64 08/22/22 16:25 128 H 18 98 08/22/22 16:25 136/71 08/22/22 16:38 36.4 C L 125 H 22 132/64 99 08/22/22 16:15 120 H 16 98 08/22/22 16:15 151/60 H 08/22/22 16:00 120 H 17 98 08/22/22 16:00 127/72 08/22/22 15:57 118 H 20 93 Nasal Cannula 08/22/22 15:45 120 H 18 97 08/22/22 15:45 142/77 H 08/22/22 15:30 121 H 21 94 08/22/22 15:30 132/85 Nasal Cannula 08/22/22 15:15 125 H 23 90 08/22/22 15:15 119/70 08/22/22 15:00 122 H 20 94 08/22/22 15:00 122/71 08/22/22 15:15 36.4 C L 08/22/22 15:15 121 H 23 119/70 93 08/22/22 14:45 122 H 20 95 08/22/22 14:45 124/71 08/22/22 14:41 118 H 19 94 08/22/22 14:41 130/76 08/22/22 14:30 118 H 20 92 08/22/22 14:00 120 H 20 94 08/22/22 13:53 117 H 16 96 08/22/22 13:53 137/78 08/22/22 13:48 124 H 20 08/22/22 15:00 36.4 C L 121 H 20 122/71 94 08/22/22 14:00 89 L Room Air 08/22/22 14:44 36.6 C 120 H 24 124/71 94 08/22/22 13:00 112 H 19 08/22/22 12:30 110 H 16 08/22/22 12:16 95/65 L 08/22/22 12:16 107 H 19 92 08/22/22 12:00 103 H 14 92 08/22/22 11:30 110 H 13 91 08/22/22 11:14 105 H 16 91 08/22/22 11:09 91 Room Air 08/22/22 10:54 36.5 C 111 H 20 115/65 93 Room Air O2 Flow Rate 08/22/22 19:26 15 08/22/22 16:30 9 08/22/22 16:30 08/22/22 16:25 08/22/22 16:25 08/22/22 16:38 9 08/22/22 16:15 08/22/22 16:15 08/22/22 16:00 08/22/22 16:00 08/22/22 15:57 2 08/22/22 15:45 08/22/22 15:45 08/22/22 15:30 08/22/22 15:30 2 08/22/22 15:15 08/22/22 15:15 08/22/22 15:00 08/22/22 15:00 08/22/22 15:15 08/22/22 15:15 2 08/22/22 14:45 08/22/22 14:45 08/22/22 14:41 08/22/22 14:41 08/22/22 14:30 08/22/22 14:00 08/22/22 13:53 08/22/22 13:53 08/22/22 13:48 08/22/22 15:00 08/22/22 14:00 0 08/22/22 14:44 2 08/22/22 13:00 08/22/22 12:30 08/22/22 12:16 08/22/22 12:16 08/22/22 12:00 08/22/22 11:30 08/22/22 11:14 08/22/22 11:09 0 08/22/22 10:54 Pain Intensity Abdomen: Pain Intensity: 5 Transfer of Care Handoff Completed per policy Notes Mental Status: alert / awake / arousable Patient Amnestic to Procedure: Yes Nausea / Vomiting: adequately controlled Pain: adequately controlled Airway Patency, RR, SpO2: see Notes below BP & HR: stable & adequate Hydration State: stable & adequate Anesthetic Complications: no major complications apparent Notes: ventilating and oxygenating adequately but continues to have audible wheezing - getting breathing treatment now - icu team aware of his condition now and before procedure.
--- NOTE | 2022-08-22 19:37 | GI REPORT ---
Patient Name: Issa Bowles Procedure Date: 08/22/2022 5:02 PM Date of : 1970 Admit Type: Emergency Department Age: 51 Gender: Male Attending MD: Bryan Hoffman MD, Procedure: Upper GI endoscopy Providers: Bryan Hoffman MD Referring MD: Damaso Girard M.d. Indications: Melena Medicines: See the Anesthesia note for documentation of the administered medications Complications: No immediate complications. Estimated Blood Loss: Estimated blood loss: none. Procedure: Pre-Anesthesia Assessment: - ASA Grade Assessment: III - A patient with severe systemic disease. After obtaining informed consent, the endoscope was passed under direct vision. Throughout the procedure, the patient's blood pressure, pulse, and oxygen saturations were monitored continuously. The Endoscope was introduced through the mouth, and advanced to the second part of duodenum. The upper GI endoscopy was accomplished without difficulty. The patient tolerated the procedure well. Findings: There were multiple columns of grade 2 varices in the lower esophagus. The GE junction was at 40 cm. There was a erosion with flat pigmented spots overlying a grade 2 varix without active bleeding at the GE junction. There was a large amount of clotted dark red blood in the fundus. This was lavaged, suctioned, and mostly removed using a net. Although the cardia and fundus could not be completely cleared, there were gastric varices in the Cardia along the greater curve (GEV 2) without evidence of active or recent bleed. There was no evidence of portal gastropathy. The duodenal mucosa was normal. Presumably, pt had bleeding from erosion at GEJ overlying varix. Two bands were placed on this erosion on this varix at 40. One additional band was placed on this column at 38 cm. Additional bands were placed at 38 and 35 cm, although the varices were not completely eradicated. Recommendation: Discharge pt to ICU. Octreotide gtt, PPI gtt, abx. Consider dx tap of ascites. Strict NPO overnight. Hgb q 12 hours. Transfuse for hgb < 7. Consider transfer to center with IR/ TIPS capability if pt re-bleeds. Bryan Hoffman M.D. Bryan Hoffman MD 08/22/2022 7:37:20 PM This report has been signed electronically. Note Initiated On: 08/22/2022 5:02 PM Number of Addenda: 0 I attest to the content of the Intraoperative Record and orders documented therein, exceptions below {[id number]}
[2022-08-22] MEDS ORDERED: ALBUTEROL 0.083% NEBU SOLN 3 ML VIAL ONE (19:43)
[2022-08-22] MEDS ORDERED: IPRATROPIUM BROMIDE NEB SOLN 0.02% 2.5 ML VIAL INH PRN (19:54)
[2022-08-22] MEDS ORDERED: LACTATED RINGER'S 1,000 ML IV SCH (19:54)
[2022-08-22] MEDS ORDERED: ARFORMOTEROL TART 15MCG/2ML VIAL INH STA (20:24)
[2022-08-22 20:25] LABS: Albumin Globulin Ratio 0.8 (0.9-2); Albumin Level 2.2 gm/dl (3.4-5.0); BUN Creatinine Ratio 40.6 (10-20); Bilirubin,Total 1.2 mg/dl (0.2-1.0); Calcium 7.9 mg/dl (8.5-10.1); Creatinine Clr Calc Pharmacy 96.9 ml/min; Est GFR (Non-African American) 84.5 ml/min; Globulin 2.6 gm/dl (2.5-4.0); Potassium 5.6 mmol/L (3.5-5.1); Total Protein 4.8 gm/dl (6.0-8.3)
[2022-08-22 20:29] LABS: iSTAT Allen Test Pass; iSTAT Art Bld Gas pCO2 Correct 30 mmHg (35-46); iSTAT Arterial Blood Gas HCO3 15 meg/L (19-24); iSTAT Arterial Blood Gas pCO2 31 mmHg (35-46); iSTAT Arterial Blood Gas pH 7.28 (7.35-7.45); iSTAT Arterial Blood Gas pO2 65 mmHg (80-95); iSTAT Arterial Blood Gas pO2 C 62; iSTAT Carbon Dioxide 16 mmol/L (24-31); iSTAT Hematocrit 23 % (42-52); iSTAT Hemoglobin 7.8 g/dl (14.0-18.0); iSTAT Potassium 5.1 mmol/L (3.3-5.0); iSTAT Site R Radial; iSTAT Sodium 144 mmol/L (135-144)
[2022-08-22 20:33] LABS: Basophils # (auto) 0.01 K/uL (0-0.2); Basophils % (auto) 0.1 %; Hematocrit (blood only) 25.6 % (40.1-51.0); Hemoglobin 8.1 g/dl (14.0-18.0); Immature Granulocytes # (auto) 0.08 K/uL (0.00-0.02); Immature Granulocytes % (auto) 0.6 %; Lymphocytes # (auto) 0.99 K/uL (1.2-3.4); Lymphocytes % (auto) 7.3 %; Mean Corpuscular Hemoglobin 31.3 pg (25.0-34.0); Mean Corpuscular Hgb Conc 31.6 g/dL (32.0-36.0); Mean Corpuscular Volume 98.8 fL (80.0-100.0); Mean Platelet Volume 11.5 fL (9.4-12.4); Monocytes % (auto) 3.7 %; Neutrophils # (auto) 11.95 K/uL (1.4-6.5); Neutrophils % (auto) 88.3 %; Nucleated RBC # (auto) 0.03 K/uL (0-0); Nucleated RBC % (auto) 0.2 %; Platelet Count 239 K/uL (130-400); RDW Coefficient of Variation 16.5 % (11.5-14.5); RDW Standard Deviation 58.5 fL (36.4-46.3); Red Blood Count 2.59 M/uL (4.63-6.08); White Blood Count 13.53 K/ul (4.8-10.8)
[2022-08-22] MEDS: OCTREOTIDE ACETATE 500 MCG in DEXTROSE 5% 100 ML IV SCH (20:39)
[2022-08-22 20:42] LABS: INR 1.8 (0.9-1.1)
[2022-08-22] MEDS: SODIUM BICARBONATE 8.4% 150 MEQ in DEXTROSE 5% 1,000 ML IV SCH (20:54)
[2022-08-22] MEDS: cefTRIAXone SODIUM 2,000 MG in DEXTROSE 5% 50 ML IV SCH (20:54)
[2022-08-22] MEDS ORDERED: GLUCAGON FOR INJ 1 MG VIAL SQ PRN (21:04)
[2022-08-22] MEDS ORDERED: CARBOHYDRATES FOR HYPOGLYCEMIA PO PRN (21:04)
[2022-08-22] MEDS: MAGNESIUM SULFATE / D5W 1 GM/100 ML BAG IV SCH ×2 (21:04→23:12)
[2022-08-22] MEDS ORDERED: GLUCOSE 10 TAB/TUBE PO PRN (21:04)
[2022-08-22] MEDS ORDERED: GLUCOSE 40% GEL 15 GM TUBE PO PRN (21:04)
[2022-08-22] MEDS: ICU Protocol for HYPERglycemia SCH ×2 (21:06→21:40)
[2022-08-22] MEDS ORDERED: CEFEPIME 2,000 MG in SYRINGE 0 ML IV SCH (22:00)
[2022-08-22 22:35] LABS: Basophils # (auto) 0.01 K/uL (0-0.2); Basophils % (auto) 0.1 %; Hematocrit (blood only) 24.4 % (40.1-51.0); Hemoglobin 7.9 g/dl (14.0-18.0); Immature Granulocytes % (auto) 0.6 %; Lymphocytes # (auto) 1.35 K/uL (1.2-3.4); Lymphocytes % (auto) 8.6 %; Mean Corpuscular Hemoglobin 31.9 pg (25.0-34.0); Mean Corpuscular Hgb Conc 32.4 g/dL (32.0-36.0); Mean Corpuscular Volume 98.4 fL (80.0-100.0); Mean Platelet Volume 11.3 fL (9.4-12.4); Monocytes % (auto) 8.3 %; Neutrophils # (auto) 12.98 K/uL (1.4-6.5); Neutrophils % (auto) 82.4 %; Platelet Count 228 K/uL (130-400); RDW Coefficient of Variation 16.9 % (11.5-14.5); RDW Standard Deviation 60.1 fL (36.4-46.3); Red Blood Count 2.48 M/uL (4.63-6.08); White Blood Count 15.74 K/ul (4.8-10.8)
[2022-08-22 22:51] LABS: Acanthocytes 1+; Echinocytes 1+
[2022-08-22 22:55] LABS: Albumin Level 2.3 gm/dl (3.4-5.0); BUN Creatinine Ratio 38.4 (10-20); Bilirubin,Total 1.6 mg/dl (0.2-1.0); Calcium 7.5 mg/dl (8.5-10.1); Creatinine Clr Calc Pharmacy 87.4 ml/min; Est GFR (African American) 86.5 ml/min; Est GFR (Non-African American) 74.6 ml/min; Globulin 2.4 gm/dl (2.5-4.0); Potassium 4.8 mmol/L (3.5-5.1); Total Protein 4.7 gm/dl (6.0-8.3)
[2022-08-22] MEDS ORDERED: NORMOSOL-R 500 ML IV ONE (23:20)
[2022-08-23] MEDS: OCTREOTIDE ACETATE 500 MCG in DEXTROSE 5% 100 ML IV SCH ×3 (01:57→20:40)
[2022-08-23] MEDS: PANTOprazole 40 MG in DEXTROSE 5% 100 ML IV SCH ×6 (01:58→22:39)
[2022-08-23 04:40] LABS: Basophils # (auto) 0.01 K/uL (0-0.2); Basophils % (auto) 0.1 %; Hematocrit (blood only) 22.8 % (40.1-51.0); Hemoglobin 7.3 g/dl (14.0-18.0); Immature Granulocytes % (auto) 0.7 %; Lymphocytes # (auto) 1.17 K/uL (1.2-3.4); Lymphocytes % (auto) 8.5 %; Mean Corpuscular Hemoglobin 30.8 pg (25.0-34.0); Mean Corpuscular Volume 96.2 fL (80.0-100.0); Mean Platelet Volume 11.5 fL (9.4-12.4); Monocytes # (auto) 1.14 K/uL (0.24-0.82); Monocytes % (auto) 8.3 %; Neutrophils # (auto) 11.31 K/uL (1.4-6.5); Neutrophils % (auto) 82.4 %; Platelet Count 176 K/uL (130-400); RDW Coefficient of Variation 17.2 % (11.5-14.5); RDW Standard Deviation 59.7 fL (36.4-46.3); Red Blood Count 2.37 M/uL (4.63-6.08); White Blood Count 13.73 K/ul (4.8-10.8)
[2022-08-23 04:49] LABS: iSTAT Allen Test Pass; iSTAT Arterial Blood Gas HCO3 20 meg/L (19-24); iSTAT Arterial Blood Gas pCO2 40 mmHg (35-46); iSTAT Arterial Blood Gas pH 7.31 (7.35-7.45); iSTAT Arterial Blood Gas pO2 < 32 mmHg (80-95); iSTAT Carbon Dioxide 22 mmol/L (24-31); iSTAT Site R Radial
[2022-08-23] MEDS: NORMOSOL-R 1,000 ML IV SCH ×3 (04:49→20:40)
[2022-08-23] MEDS: SODIUM BICARBONATE 8.4% 150 MEQ in DEXTROSE 5% 1,000 ML IV SCH (04:52)
[2022-08-23 05:05] LABS: Polychromasia 1+
[2022-08-23 05:21] LABS: Albumin Level 2.2 gm/dl (3.4-5.0); BUN Creatinine Ratio 42.2 (10-20); Bilirubin,Total 1.1 mg/dl (0.2-1.0); Calcium 7.5 mg/dl (8.5-10.1); Creatinine Clr Calc Pharmacy 89.8 ml/min; Est GFR (African American) 89.3 ml/min; Est GFR (Non-African American) 77.1 ml/min; Globulin 2.3 gm/dl (2.5-4.0); Potassium 4.5 mmol/L (3.5-5.1); Total Protein 4.5 gm/dl (6.0-8.3)
[2022-08-23 05:23] LABS: Albumin Level 2.2 gm/dl (3.4-5.0); BUN Creatinine Ratio 41.8 (10-20); Bilirubin Direct 0.4 mg/dl (0-0.2); Bilirubin,Total 1.1 mg/dl (0.2-1.0); Calcium 7.6 mg/dl (8.5-10.1); Est GFR (African American) 88.4 ml/min; Est GFR (Non-African American) 76.2 ml/min; Magnesium 2.1 mg/dl (1.7-2.4); Phosphorus 3.4 mg/dl (2.5-4.9); Potassium 4.5 mmol/L (3.5-5.1); Total Protein 4.5 gm/dl (6.0-8.3)
[2022-08-23] MEDS: ICU ELECTROLYTE REPLACEMENT PROTOCOL SCH ×2 (05:31→17:58)
[2022-08-23] MEDS ORDERED: BUDESONIDE 0.5 MG/2 ML VIAL (PULMICORT) NEB SCH (07:00)
[2022-08-23] MEDS: FORMOTEROL 20 MCG/2 ML VIAL INH SCH ×2 (07:12→20:21)
[2022-08-23] MEDS: BUDESONIDE 0.5 MG/2 ML VIAL (PULMICORT) NEB SCH ×2 (07:12→20:21)
[2022-08-23] MEDS: ALBUT/IPRATROP 3MG/0.5MG NEB 3 ML VIAL NEB SCH ×4 (07:12→20:22)
[2022-08-23] MEDS ORDERED: SODIUM CHLORIDE 0.9% 250 ML IV PRN (07:16)
[2022-08-23] MEDS: ICU Protocol for HYPERglycemia SCH (07:17)
--- NOTE | 2022-08-23 10:49 | Critical Care Progress Note ---
Date of Service August 23, 2022 Assessment & Plan (1) COPD exacerbation: (2) Cirrhosis: (3) Hepatitis C virus: (4) Pleural effusion: (5) Coagulopathy: (6) Ascites: (7) Lactic acidosis: (8) History of intravenous drug abuse: (9) Anxiety: (10) Acute on chronic blood loss anemia: (11) Upper GI bleed: (12) Hyperkalemia: Plan Reason Critically Ill: 51-year-old inmate past medical history of liver cirrhosis, hep C with acute blood loss anemia secondary to variceal bleeding Neuro - [facility] ICU: Negative Cardiac - -- Sinus tachycardia Likely from underlying bleeding and anemia -10 mg propranolol 3 times daily given portal hypertension Respiratory - CT chest 08/22/2022 personally reviewed: Centrilobular emphysema appreciated bilaterally right-sided pleural effusion with dependent atelectasis, small left- sided pleural effusion Fluid in the fissure No mediastinal lymphadenopathy -- Acute COPD exacerbation Given the active bleed we will try to avoid steroids Continue with inhaled bronchodilators --Pleural effusion Likely secondary to ascites Continue to monitor --Ex-smoker Approximately [id number] smoking history Quit 6 months ago GI - -- Acute GI bleed Presumptive variceal source -Continue with octreotide, pantoprazole drip, Rocephin -SBP unlikely -- Ascites -Beta-mark for portal hypertension and low-salt diet -- Coagulopathy with transaminitis Likely from liver cirrhosis Continue to monitor S/p 5 mg vitamin K -- History of hep C Not treated RENAL/LYTES - -- Hyperkalemia: Resolved -- HAGMA: Improving/resolved -Repeat lactic acid: Suspect hepatic insufficiency and clearing -Thiamine supplementation: IV for now until able to take clears and pills - No active issues ENDO - ICU hypoglycemia protocol HEME - -- Acute blood loss anaemia on chronic macrocytic anemia -Give 1 additional unit of packed red blood cell ID - --Continue with Rocephin equivalent to cover for SBP as well as active GI bleed Procalcitonin 0.72, respiratory bio fire negative Rapid bio fire for respiratory panel was negative --Prophylaxis VTE: IPC GI: Protonix drip Lines: Peripheral Diet: N.p.o. Admission and Anticipated Discharge Date Admission Date: August 22, 2022 Supervising Physician Co-Signing Physician Notes I have personally spent 45 minutes of critical care time in the direct management of this patient. This is a life/limb threatening event. This includes time spent evaluating patient, direct bedside care, chart review, placing orders, interpretation of diagnostic studies, discussion with consultants, patient, and family members, as well as other required patient management activities. This time is exclusive of all separately billable procedures, and teaching time and separate from and in addition to any other critical care service time. Subjective No abdominal pain, feels better. Appreciates being able to take sips. Review of Systems Review of Systems: No abdominal pain. Physical Exam Physical Exam: General: Alert. nontoxic. Skin: Warm, dry, Head: Atraumatic Ears, nose, mouth and throat: airway patent Cardiovascular: Normal peripheral perfusion Respiratory: no respiratory distress Gastrointestinal: Non distended Musculoskeletal: No deformity Results & Data Results & Data ([facility]) Vital Signs (Past 12 Hours) Vital Signs Temp Pulse Pulse Resp BP Pulse Ox O2 Del Method 08/23/22 10:34 111 H 18 91 Nasal Cannula 08/23/22 10:22 113 H 16 143/90 H 92 08/23/22 09:46 36.8 C 120 H 18 141/81 H 93 08/23/22 10:00 120 H 15 89 L 08/23/22 09:45 112 H 22 93 08/23/22 09:45 161/88 H 08/23/22 09:30 116 H 20 92 08/23/22 09:30 147/80 H 08/23/22 09:15 155/80 H 08/23/22 09:15 114 H 20 92 08/23/22 09:00 115 H 8 L 91 08/23/22 09:00 148/77 H 08/23/22 08:45 122 H 21 91 08/23/22 08:45 139/78 08/23/22 08:30 136/67 08/23/22 08:30 119 H 19 90 08/23/22 08:16 125 H 21 90 08/23/22 08:16 131/73 08/23/22 08:00 119 H 10 L 92 08/23/22 08:00 132/74 08/23/22 07:53 120 H 15 92 08/23/22 07:53 145/81 H 08/23/22 07:25 120 H 15 92 08/23/22 07:25 142/79 H 08/23/22 06:45 120 H 14 90 08/23/22 08:46 116 H 18 139/78 94 08/23/22 08:16 36.9 C 119 H 18 131/73 91 08/23/22 08:14 Nasal Cannula 08/23/22 08:00 119 H 08/23/22 08:01 36.8 C 119 H 18 132/74 92 08/23/22 07:46 36.8 C 125 H 18 142/79 H 92 08/23/22 07:12 117 H 19 93 Nasal Cannula 08/23/22 07:00 121 H 14 94 08/23/22 07:00 143/73 H 08/23/22 06:00 120 H 19 93 08/23/22 06:00 117/76 08/23/22 05:00 122 H 13 92 08/23/22 05:00 140/80 08/23/22 04:00 115 H 16 90 08/23/22 04:00 116/71 08/23/22 03:00 122 H 16 91 08/23/22 02:00 114 H 13 88 L 08/23/22 02:00 121/54 L 08/23/22 01:00 121 H 13 90 08/23/22 01:00 130/80 08/23/22 00:00 125 H 13 90 08/23/22 00:00 119/89 08/22/22 23:01 129 H 19 90 08/22/22 23:01 110/84 08/22/22 23:00 128 H 19 91 08/23/22 00:00 118 H 08/23/22 03:00 36.8 C 08/22/22 23:00 36.9 C 08/22/22 22:44 126 H 18 91 Nasal Cannula O2 Flow Rate 08/23/22 10:34 3 08/23/22 10:22 4 08/23/22 09:46 4 08/23/22 10:00 08/23/22 09:45 08/23/22 09:45 08/23/22 09:30 08/23/22 09:30 08/23/22 09:15 08/23/22 09:15 08/23/22 09:00 08/23/22 09:00 08/23/22 08:45 08/23/22 08:45 08/23/22 08:30 08/23/22 08:30 08/23/22 08:16 08/23/22 08:16 08/23/22 08:00 08/23/22 08:00 08/23/22 07:53 08/23/22 07:53 08/23/22 07:25 08/23/22 07:25 08/23/22 06:45 08/23/22 08:46 4 08/23/22 08:16 4 08/23/22 08:14 4 08/23/22 08:00 08/23/22 08:01 4 08/23/22 07:46 4 08/23/22 07:12 3 08/23/22 07:00 08/23/22 07:00 08/23/22 06:00 08/23/22 06:00 08/23/22 05:00 08/23/22 05:00 08/23/22 04:00 08/23/22 04:00 08/23/22 03:00 08/23/22 02:00 08/23/22 02:00 08/23/22 01:00 08/23/22 01:00 08/23/22 00:00 08/23/22 00:00 08/22/22 23:01 08/22/22 23:01 08/22/22 23:00 08/23/22 00:00 08/23/22 03:00 08/22/22 23:00 08/22/22 22:44 Coding Level of Care Code Critical Care 1st 30-74 mins Diagnoses COPD exacerbation J44.1 Cirrhosis K74.60 Hepatitis C virus B19.20 Pleural effusion J90 Coagulopathy D68.9 Ascites R18.8 Lactic acidosis E87.20 History of intravenous drug abuse F19.11 Anxiety F41.9 Acute on chronic blood loss anemia D62 Upper GI bleed K92.2 Hyperkalemia E87.5
[2022-08-23] MEDS: PROPRANOLOL HCL 10 MG TAB PO SCH ×3 (10:54→20:41)
[2022-08-23] MEDS ORDERED: THIAMINE HCL 100 MG in SYRINGE 9 ML IV SCH (11:00)
[2022-08-23] MEDS: INSULIN ASPART PER UNIT SC SCH ×3 (11:44→22:10)
--- NOTE | 2022-08-23 12:09 | Electrocardiogram Report ---
Test Reason : Blood Pressure : / mmHG Vent. Rate : 104 BPM Atrial Rate : 104 BPM P-R Int : 160 ms QRS Dur : 082 ms QT Int : 352 ms P-R-T Axes : 023 -11 036 degrees QTc Int : 462 ms Sinus tachycardia Low voltage QRS Poor R wave progression, consider anterior ND vs. lead placement vs. LVH Abnormal ECG No previous ECGs available Confirmed by Ayaz Anton ([id number]) on 08/23/2022 12:09:05 PM Referred By: Confirmed By:Ayaz Anton
--- NOTE | 2022-08-23 13:38 | Ultrasound Report ---
ULTRASOUND GUIDED DIAGNOSTIC PARACENTESIS CLINICAL HISTORY: Ascites. COMPARISON STUDY: CT of the abdomen and pelvis August 22, 2022. PROCEDURE: Sonography of the abdomen and pelvis demonstrated a small amount of ascites, insufficient for therapeutic paracentesis. However, the amount of fluid was sufficient for diagnostic paracentesis . The risks, benefits, and alternatives to the procedure were discussed with the patient including th e risk of bleeding, infection and injury to adjacent structures. The patient agreed to the procedure and informed written consent was obtained. Following real-time ultrasound localization, the skin of the right lower quadrant was prepped and draped. Following local anesthesia with Xylocaine, a 20-gaug e, 3 1/2 inch needle was directed into the peritoneal cavity. There was immediate return of straw-col ored ascites. 50 cc was aspirated and sent to the laboratory for analysis. The needle was removed. The patient tolerated the procedure well and no immediate complications were evident. IMPRESSION: Ultrasound-guided diagnostic paracentesis with aspiration of 50 cc of straw-colored asci estephania which was sent to the laboratory for analysis as ordered. ACT 112: Negative or not required by law. Electronically signed by: North Andrade M.D. 08/23/2022 1:37 PM
--- NOTE | 2022-08-23 16:02 | Gastroenterology Progress Note ---
Date of Service August 23, 2022 Assessment & Plan Admission and Anticipated Discharge Date Admission Date: August 22, 2022 Subjective Pt received an additional unit of PRBC with hgb 7.9--> 8.5. BUN 43--> 46. Persistent tachy overnight, normotensive. No BM since procedure. He tells me that he urinated large amount this morning, urine was light yellow. Denies CP Tap done -- 50 cc fluid withdrawn, studies pending. Of note, fluid albumin was not ordered. He has no complaints. On exam, pt appears comfortable. He has mild incr WOB, pausing after a few words, but has no acc muscle use. BP normal. Sats low 90's on 2-3 L HEENT: oc clear, anicteric, moist Abd: soft, mild distended Extrem: Mild flank edema, no asterixis A/P: Cirrhosis, GIB from esophageal varices, s/p banding - Cont octreotide, PPI, abx. - No need for propanolol for portal HTN at this time given octreotide therapy; also, it is possible that beta blockade may worsen ascites. ok to continue if needed for tachycardia or HTN - begin clears. Results & Data ([facility]) Vital Signs (Past 12 Hours) Vital Signs Temp Pulse Pulse Resp BP Pulse Ox O2 Del Method 08/23/22 15:48 77 19 91 Nasal Cannula 08/23/22 10:59 113 H 08/23/22 10:34 111 H 18 91 Nasal Cannula 08/23/22 10:22 113 H 16 143/90 H 92 08/23/22 09:46 36.8 C 120 H 18 141/81 H 93 08/23/22 10:00 120 H 15 89 L 08/23/22 09:45 112 H 22 93 08/23/22 09:45 161/88 H 08/23/22 09:30 116 H 20 92 08/23/22 09:30 147/80 H 08/23/22 09:15 155/80 H 08/23/22 09:15 114 H 20 92 08/23/22 09:00 115 H 8 L 91 08/23/22 09:00 148/77 H 08/23/22 08:45 122 H 21 91 08/23/22 08:45 139/78 08/23/22 08:30 136/67 08/23/22 08:30 119 H 19 90 08/23/22 08:16 125 H 21 90 08/23/22 08:16 131/73 08/23/22 08:00 119 H 10 L 92 08/23/22 08:00 132/74 08/23/22 07:53 120 H 15 92 08/23/22 07:53 145/81 H 08/23/22 07:25 120 H 15 92 08/23/22 07:25 142/79 H 08/23/22 06:45 120 H 14 90 08/23/22 08:46 116 H 18 139/78 94 08/23/22 08:16 36.9 C 119 H 18 131/73 91 08/23/22 08:14 Nasal Cannula 08/23/22 08:00 119 H 08/23/22 08:01 36.8 C 119 H 18 132/74 92 08/23/22 07:46 36.8 C 125 H 18 142/79 H 92 08/23/22 07:12 117 H 19 93 Nasal Cannula 08/23/22 07:00 121 H 14 94 08/23/22 07:00 143/73 H 08/23/22 06:00 120 H 19 93 08/23/22 06:00 117/76 08/23/22 05:00 122 H 13 92 08/23/22 05:00 140/80 O2 Flow Rate 08/23/22 15:48 3 08/23/22 10:59 08/23/22 10:34 3 08/23/22 10:22 4 08/23/22 09:46 4 08/23/22 10:00 08/23/22 09:45 08/23/22 09:45 08/23/22 09:30 08/23/22 09:30 08/23/22 09:15 08/23/22 09:15 08/23/22 09:00 08/23/22 09:00 08/23/22 08:45 08/23/22 08:45 08/23/22 08:30 08/23/22 08:30 08/23/22 08:16 08/23/22 08:16 08/23/22 08:00 08/23/22 08:00 08/23/22 07:53 08/23/22 07:53 08/23/22 07:25 08/23/22 07:25 08/23/22 06:45 08/23/22 08:46 4 08/23/22 08:16 4 08/23/22 08:14 4 08/23/22 08:00 08/23/22 08:01 4 08/23/22 07:46 4 08/23/22 07:12 3 08/23/22 07:00 08/23/22 07:00 08/23/22 06:00 08/23/22 06:00 08/23/22 05:00 08/23/22 05:00
[2022-08-23 16:25] LABS: Appearance Peritoneal Fluid Clear; Color Peritoneal Fluid Pale Yellow; Lymphocytes, Fluid 45 %; Mono,Macrophage,Mesothelial 48 %; Neutrophils, Fluid 7 %; RBC Peritoneal Fluid Auto < 2000 /uL; WBC Peritoneal Fluid Auto 132 /ul (0-300)
--- NOTE | 2022-08-23 17:18 | Hospitalist Progress Note ---
Date of Service August 23, 2022 Assessment & Plan (1) Upper GI bleed: Plan: Acute GI bleed most likely variceal bleeding, status post EGD and banding s/p one unit of PRBC today with hgb 7.9--> 8.5. Cirrhosis, GIB from esophageal varices, s/p banding - Cont octreotide, PPI, abx. -- begin clears. - CT-A/P: 1. Cirrhosis with manifestations of portal hypertension including varices and moderate ascites.2. Mild gastric wall thickening and prominent mucosal enhancement. This is nonspecific although may reflect gastritis. Hyperdense material within the distal stomach which likely reflects ingested contents however clot could appear similar.3. No bowel obstruction. Jejunal wall thickening. This is also nonspecific and could be due to to portal hypertension or hypoalbuminemia.4. Moderate right and trace left pleural effusions.5. Small hiatal hernia with distal esophageal wall thickening which may reflect esophagitis. 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 - INR 1.8, patient does not take blood thinners suspect cirrhotic coagulopathy; vitamin K 5 mg x 1 IV given in ER Patient initially hypotensive with elevated lactate, question hypoperfusion injury currently is normotensive Octreotide/PPI/antibiotic management as noted above (3) Hyperkalemia: Plan: Hyperkalemia K 6.2, no renal failure, Creatinine 0.89. 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 meds held while n.p.o. 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 Defer additional steroids in the setting of acute bleeding Folow-up PFTs as outpatient (6) History of intravenous drug abuse: Plan: In remission for 2 years per patient, patient reports had not been tested for HIV/HCV in the past, although 1 note of possible testing in 06/2022 per record review. Hepatitis panel/HIV test pending. HIV test discussed with patient at time of admission, patient consents to testing (7) Hepatitis C virus: Plan: Patient denies this, one mention of HCV in [employer] review without additional details (8) Pneumonia: Plan: right middle lobe pneumonia - Initially suspected base don CXR and cough. Reviewed with pulm, low suspicion. continue abx for GIB and defer additional coverage at this time No hypoxia on room air initially, did drop once and stable on 0-2 L oxygen. SPO2 goal greater than 90% Bio fire negative Imaging as noted No evidence of PE Plan Continue ICU stay, currently patient on octreotide drip Admission and Anticipated Discharge Date Admission Date: August 22, 2022 Subjective The patient is a 51-year-old male with a past medical history significant for hepatitis C, untreated, cirrhosis, history of IV drug abuse presented to hospital with bloody bowel movements, shortness of breath with ambulation admitted to hospital with acute GI bleed and anemia potassium 6.2 sodium 140 lactic acid of 6.6 procalcitonin of 0.72 bio fire is negative. Chest CT showed evidence of portal hypertension including varices of and ascites. His hemoglobin was 6.7. Patient status post EGD and banding today Physical Exam Physical Exam: General: Alert. nontoxic. Skin: Warm, dry, Head: Atraumatic Ears, nose, mouth and throat: airway patent Cardiovascular: Normal peripheral perfusion Respiratory: no respiratory distress Gastrointestinal: Non distended Musculoskeletal: No deformity Results & Data Results & Data ([facility]) Vital Signs (Past 12 Hours) Vital Signs Temp Pulse Pulse Resp BP Pulse Ox O2 Del Method 08/23/22 16:00 113 H 08/23/22 15:48 77 19 91 Nasal Cannula 08/23/22 10:59 113 H 08/23/22 10:34 111 H 18 91 Nasal Cannula 08/23/22 10:22 113 H 16 143/90 H 92 08/23/22 09:46 36.8 C 120 H 18 141/81 H 93 08/23/22 10:00 120 H 15 89 L 08/23/22 09:45 112 H 22 93 08/23/22 09:45 161/88 H 08/23/22 09:30 116 H 20 92 08/23/22 09:30 147/80 H 08/23/22 09:15 155/80 H 08/23/22 09:15 114 H 20 92 08/23/22 09:00 115 H 8 L 91 08/23/22 09:00 148/77 H 08/23/22 08:45 122 H 21 91 08/23/22 08:45 139/78 08/23/22 08:30 136/67 08/23/22 08:30 119 H 19 90 08/23/22 08:16 125 H 21 90 08/23/22 08:16 131/73 08/23/22 08:00 119 H 10 L 92 08/23/22 08:00 132/74 08/23/22 07:53 120 H 15 92 08/23/22 07:53 145/81 H 08/23/22 07:25 120 H 15 92 08/23/22 07:25 142/79 H 08/23/22 06:45 120 H 14 90 08/23/22 08:46 116 H 18 139/78 94 08/23/22 08:16 36.9 C 119 H 18 131/73 91 08/23/22 08:14 Nasal Cannula 08/23/22 08:00 119 H 08/23/22 08:01 36.8 C 119 H 18 132/74 92 08/23/22 07:46 36.8 C 125 H 18 142/79 H 92 08/23/22 07:12 117 H 19 93 Nasal Cannula 08/23/22 07:00 121 H 14 94 08/23/22 07:00 143/73 H 08/23/22 06:00 120 H 19 93 08/23/22 06:00 117/76 O2 Flow Rate 08/23/22 16:00 08/23/22 15:48 3 08/23/22 10:59 08/23/22 10:34 3 08/23/22 10:22 4 08/23/22 09:46 4 08/23/22 10:00 08/23/22 09:45 08/23/22 09:45 08/23/22 09:30 08/23/22 09:30 08/23/22 09:15 08/23/22 09:15 08/23/22 09:00 08/23/22 09:00 08/23/22 08:45 08/23/22 08:45 08/23/22 08:30 08/23/22 08:30 08/23/22 08:16 08/23/22 08:16 08/23/22 08:00 08/23/22 08:00 08/23/22 07:53 08/23/22 07:53 08/23/22 07:25 08/23/22 07:25 08/23/22 06:45 08/23/22 08:46 4 08/23/22 08:16 4 08/23/22 08:14 4 08/23/22 08:00 08/23/22 08:01 4 08/23/22 07:46 4 08/23/22 07:12 3 08/23/22 07:00 08/23/22 07:00 08/23/22 06:00 08/23/22 06:00 PG Care Time/CCT Total # of Minutes Spent Total Time Spent with Patient: Total time spent is greater than 50% in coordination of care (as documented) at patient's floor/unit and/or counseling patient: Coding Level of Care Code 51736 Subseq Hosp Care Lvl 3 Diagnoses Upper GI bleed K92.2 Cirrhosis K74.60 Hyperkalemia E87.5 Anxiety F41.9 Past use of tobacco Z87.891 History of intravenous drug abuse F19.11 Hepatitis C virus B19.20 Pneumonia J18.9
[2022-08-23] MEDS: cefTRIAXone SODIUM 2,000 MG in DEXTROSE 5% 50 ML IV SCH (20:39)
[2022-08-23] MEDS ORDERED: Nursing to Pharmacy Communication SCH ×2 (21:00→21:30)
[2022-08-24] MEDS ORDERED: INSULIN ASPART PER UNIT SC SCH
[2022-08-24] MEDS: PANTOprazole 40 MG in DEXTROSE 5% 100 ML IV SCH (03:43)
[2022-08-24 05:16] LABS: Albumin Level 2.1 gm/dl (3.4-5.0); BUN Creatinine Ratio 56.4 (10-20); Bilirubin Direct 0.5 mg/dl (0-0.2); Bilirubin,Total 1.3 mg/dl (0.2-1.0); Calcium 6.9 mg/dl (8.5-10.1); Creatinine Clr Calc Pharmacy 127.6 ml/min; Est GFR (African American) 119.4 ml/min; Est GFR (Non-African American) 103.1 ml/min; Phosphorus 2.7 mg/dl (2.5-4.9); Potassium 4.5 mmol/L (3.5-5.1); Total Protein 4.4 gm/dl (6.0-8.3)
[2022-08-24 05:25] LABS: Hematocrit (blood only) 24.4 % (40.1-51.0); Hemoglobin 8.2 g/dl (14.0-18.0); Mean Corpuscular Hemoglobin 31.1 pg (25.0-34.0); Mean Corpuscular Hgb Conc 33.6 g/dL (32.0-36.0); Mean Corpuscular Volume 92.4 fL (80.0-100.0); Mean Platelet Volume 10.5 fL (9.4-12.4); Platelet Count 112 K/uL (130-400); RDW Coefficient of Variation 16.2 % (11.5-14.5); RDW Standard Deviation 53.7 fL (36.4-46.3); Red Blood Count 2.64 M/uL (4.63-6.08); White Blood Count 10.15 K/ul (4.8-10.8)
[2022-08-24 05:27] LABS: Basophils # (auto) 0.01 K/uL (0-0.2); Basophils % (auto) 0.1 %; Eosinophils # (auto) 0.01 K/uL (0-0.50); Eosinophils % (auto) 0.1 %; Immature Granulocytes # (auto) 0.04 K/uL (0.00-0.02); Immature Granulocytes % (auto) 0.4 %; Lymphocytes # (auto) 1.72 K/uL (1.2-3.4); Lymphocytes % (auto) 16.9 %; Monocytes # (auto) 0.94 K/uL (0.24-0.82); Monocytes % (auto) 9.3 %; Neutrophils # (auto) 7.43 K/uL (1.4-6.5); Neutrophils % (auto) 73.2 %; Platelet Estimate Decreased (Normal)
[2022-08-24] MEDS: OCTREOTIDE ACETATE 500 MCG in DEXTROSE 5% 100 ML IV SCH (05:30)
[2022-08-24] MEDS: ICU ELECTROLYTE REPLACEMENT PROTOCOL SCH (05:32)
[2022-08-24] MEDS: BUDESONIDE 0.5 MG/2 ML VIAL (PULMICORT) NEB SCH ×2 (07:15→19:36)
[2022-08-24] MEDS: FORMOTEROL 20 MCG/2 ML VIAL INH SCH ×2 (07:16→19:36)
--- NOTE | 2022-08-24 07:39 | Critical Care Progress Note ---
Date of Service August 24, 2022 Assessment & Plan (1) COPD exacerbation: (2) Cirrhosis: (3) Hepatitis C virus: (4) Pleural effusion: (5) Coagulopathy: (6) Ascites: (7) Lactic acidosis: (8) History of intravenous drug abuse: (9) Anxiety: (10) Acute on chronic blood loss anemia: (11) Upper GI bleed: (12) Hyperkalemia: Plan Reason Critically Ill: 51-year-old inmate past medical history of liver cirrhosis, hep C with acute blood loss anemia secondary to variceal bleeding Neuro - [facility] ICU: Negative Cardiac - -- Sinus tachycardia: Resolved -10 mg propranolol 3 times daily given portal hypertension -Could consider nadolol Respiratory - CT chest 08/22/2022 personally reviewed: Centrilobular emphysema appreciated bilaterally right-sided pleural effusion with dependent atelectasis, small left- sided pleural effusion Fluid in the fissure No mediastinal lymphadenopathy -- Acute COPD exacerbation Given the active bleed we will try to avoid steroids Continue with inhaled bronchodilators -Finish 7-day course Rocephin which also covers for gastrointestinal variceal bleeding --Pleural effusion Likely secondary to ascites Continue to monitor --Ex-smoker Approximately [id number] smoking history Quit 6 months ago GI - -- Acute GI bleed Presumptive variceal source -octreotide stopping today, pantoprazole BID, Rocephin -SBP unlikely -- Ascites fluid reviewed -- Coagulopathy with transaminitis Likely from liver cirrhosis S/p 5 mg vitamin K -- History of hep C Not treated RENAL/LYTES - -- Hyperkalemia: Resolved -- HAGMA: resolved - No active issues ENDO - ICU hypoglycemia protocol HEME - -- Acute blood loss anaemia on chronic macrocytic anemia: improving ID - --Continue with Rocephin equivalent to cover for SBP as well as active GI bleed Procalcitonin 0.72, respiratory bio fire negative Rapid bio fire for respiratory panel was negative --Prophylaxis VTE: IPC GI: Protonix Lines: Peripheral Diet: Clears, advance per GI recommendations - Stable for downgrade out of ICU Admission and Anticipated Discharge Date Admission Date: August 22, 2022 Subjective Patient is without complaint today. No ongoing bleeding Physical Exam Physical Exam: General: Alert. nontoxic. Skin: Warm, dry, Head: Atraumatic Ears, nose, mouth and throat: airway patent Cardiovascular: Normal peripheral perfusion Respiratory: no respiratory distress Gastrointestinal: Non distended Musculoskeletal: No deformity Results & Data Results & Data ([facility]) Vital Signs (Past 12 Hours) Vital Signs Temp Pulse Pulse Resp BP Pulse Ox Pulse Ox 08/24/22 07:00 71 18 119/71 96 08/24/22 07:15 08/24/22 07:15 36.8 C 08/24/22 07:15 66 08/24/22 07:16 65 19 94 08/24/22 04:00 69 94 08/24/22 04:00 104/73 08/24/22 03:00 67 95 08/24/22 03:00 96/55 L 08/24/22 02:00 64 93 08/24/22 02:00 106/66 08/24/22 01:19 98/64 L 08/24/22 01:19 69 95 08/24/22 01:00 68 94 08/24/22 00:00 69 93 08/24/22 00:00 94/59 L 08/24/22 03:50 37.0 C 08/24/22 00:00 66 08/23/22 23:00 71 92 08/23/22 23:00 101/61 08/23/22 22:33 75 91 08/23/22 22:33 111/64 08/23/22 22:30 79/42 L 08/23/22 22:30 73 92 08/23/22 22:15 93/61 L 08/23/22 22:15 74 92 08/23/22 22:00 74 92 08/23/22 22:00 111/70 08/23/22 21:45 77 93 08/23/22 21:45 114/70 08/23/22 21:30 77 93 08/23/22 21:30 117/65 08/23/22 21:15 129/72 08/23/22 21:15 76 93 08/23/22 21:00 79 95 08/23/22 21:00 119/77 08/23/22 20:47 114/72 08/23/22 20:47 87 91 08/23/22 20:46 100/63 08/23/22 20:46 83 84 L 08/23/22 20:30 129/74 08/23/22 20:30 77 97 08/23/22 20:15 108/66 12/26/22 20:15 77 90 08/23/22 20:00 78 90 08/23/22 20:00 114/69 08/23/22 19:45 118/73 08/23/22 19:45 77 91 08/23/22 21:50 08/23/22 23:36 36.9 C 08/23/22 19:54 93 08/23/22 20:24 82 18 90 O2 Del Method O2 Del Method O2 Flow Rate O2 Flow Rate FiO2 08/24/22 07:00 Nasal Cannula 2 08/24/22 07:15 Nasal Cannula 2 08/24/22 07:15 08/24/22 07:15 08/24/22 07:16 Nasal Cannula 3 08/24/22 04:00 08/24/22 04:00 08/24/22 03:00 08/24/22 03:00 08/24/22 02:00 08/24/22 02:00 08/24/22 01:19 08/24/22 01:19 08/24/22 01:00 08/24/22 00:00 08/24/22 00:00 08/24/22 03:50 08/24/22 00:00 08/23/22 23:00 08/23/22 23:00 08/23/22 22:33 08/23/22 22:33 08/23/22 22:30 08/23/22 22:30 08/23/22 22:15 08/23/22 22:15 08/23/22 22:00 08/23/22 22:00 08/23/22 21:45 08/23/22 21:45 08/23/22 21:30 08/23/22 21:30 08/23/22 21:15 08/23/22 21:15 08/23/22 21:00 08/23/22 21:00 08/23/22 20:47 08/23/22 20:47 08/23/22 20:46 08/23/22 20:46 08/23/22 20:30 08/23/22 20:30 08/23/22 20:15 08/23/22 20:15 08/23/22 20:00 08/23/22 20:00 08/23/22 19:45 08/23/22 19:45 08/23/22 21:50 Nasal Cannula 4 08/23/22 23:36 08/23/22 19:54 Nasal Cannula 2 08/23/22 20:24 Nasal Cannula 2 Critical Care Results & Data Vital Signs (Past 12 Hours) Vital Signs Temp Pulse Pulse Resp BP Pulse Ox Pulse Ox 08/24/22 07:00 71 18 119/71 96 08/24/22 07:15 08/24/22 07:15 36.8 C 08/24/22 07:15 66 08/24/22 07:16 65 19 94 08/24/22 04:00 69 94 08/24/22 04:00 104/73 08/24/22 03:00 67 95 08/24/22 03:00 96/55 L 08/24/22 02:00 64 93 08/24/22 02:00 106/66 08/24/22 01:19 98/64 L 08/24/22 01:19 69 95 08/24/22 01:00 68 94 08/24/22 00:00 69 93 08/24/22 00:00 94/59 L 08/24/22 03:50 37.0 C 08/24/22 00:00 66 08/23/22 23:00 71 92 08/23/22 23:00 101/61 08/23/22 22:33 75 91 08/23/22 22:33 111/64 08/23/22 22:30 79/42 L 08/23/22 22:30 73 92 08/23/22 22:15 93/61 L 08/23/22 22:15 74 92 08/23/22 22:00 74 92 08/23/22 22:00 111/70 08/23/22 21:45 77 93 08/23/22 21:45 114/70 08/23/22 21:30 77 93 08/23/22 21:30 117/65 08/23/22 21:15 129/72 08/23/22 21:15 76 93 08/23/22 21:00 79 95 08/23/22 21:00 119/77 08/23/22 20:47 114/72 08/23/22 20:47 87 91 08/23/22 20:46 100/63 08/23/22 20:46 83 84 L 08/23/22 20:30 129/74 08/23/22 20:30 77 97 08/23/22 20:15 108/66 08/23/22 20:15 77 90 08/23/22 20:00 78 90 08/23/22 20:00 114/69 08/23/22 19:45 118/73 08/23/22 19:45 77 91 08/23/22 21:50 08/23/22 23:36 36.9 C 08/23/22 19:54 93 08/23/22 20:24 82 18 90 O2 Del Method O2 Del Method O2 Flow Rate O2 Flow Rate FiO2 08/24/22 07:00 Nasal Cannula 2 08/24/22 07:15 Nasal Cannula 2 08/24/22 07:15 08/24/22 07:15 08/24/22 07:16 Nasal Cannula 3 08/24/22 04:00 08/24/22 04:00 08/24/22 03:00 08/24/22 03:00 08/24/22 02:00 08/24/22 02:00 08/24/22 01:19 08/24/22 01:19 08/24/22 01:00 08/24/22 00:00 08/24/22 00:00 08/24/22 03:50 08/24/22 00:00 08/23/22 23:00 08/23/22 23:00 08/23/22 22:33 08/23/22 22:33 08/23/22 22:30 08/23/22 22:30 08/23/22 22:15 08/23/22 22:15 08/23/22 22:00 08/23/22 22:00 08/23/22 21:45 08/23/22 21:45 08/23/22 21:30 08/23/22 21:30 08/23/22 21:15 08/23/22 21:15 08/23/22 21:00 08/23/22 21:00 08/23/22 20:47 08/23/22 20:47 08/23/22 20:46 08/23/22 20:46 08/23/22 20:30 08/23/22 20:30 08/23/22 20:15 08/23/22 20:15 08/23/22 20:00 08/23/22 20:00 08/23/22 19:45 08/23/22 19:45 08/23/22 21:50 Nasal Cannula 4 08/23/22 23:36 08/23/22 19:54 Nasal Cannula 2 08/23/22 20:24 Nasal Cannula 2 Lab & Micro Results (Past 24 Hours) RBC 2.80 M/uL (4.63-6.08) L 08/25/22 WBC 7.61 K/ul (4.8-10.8) 08/25/22 Hgb 8.6 g/dl (14.0-18.0) L 08/25/22 Hct 26.0 % (40.1-51.0) L 08/25/22 MCV 92.9 fL (80.0-100.0) 08/25/22 MCH 30.7 pg (25.0-34.0) 08/25/22 MCHC 33.1 g/dL (32.0-36.0) 08/25/22 RDW Standard Deviation 53.2 fL (36.4-46.3) H 08/25/22 RDW Coefficient of Variation 15.8 % (11.5-14.5) H 08/25/22 Plt Count 110 K/uL (130-400) L 08/25/22 MPV 10.8 fL (9.4-12.4) 08/25/22 Neutrophils (%) (Auto) 68.5 % 08/25/22 Lymphocytes (%) (Auto) 18.1 % 08/25/22 Monocytes # (Auto) 0.85 K/uL (0.24-0.82) H 08/25/22 Eosinophils # (Auto) 0.09 K/uL (0-0.50) 08/25/22 Immature Granulocyte % (Auto) 0.7 % 08/25/22 Neutrophils # (Auto) 5.22 K/uL (1.4-6.5) 08/25/22 Lymphocytes # (Auto) 1.38 K/uL (1.2-3.4) 08/25/22 Monocytes # (Auto) 0.85 K/uL (0.24-0.82) H 08/25/22 Eosinophils # (Auto) 0.09 K/uL (0-0.50) 08/25/22 Basophils # (Auto) 0.02 K/uL (0-0.2) 08/25/22 Immature Granulocyte # (Auto) 0.05 K/uL (0.00-0.02) H 08/25 Polychromasia 1+ 08/25/22 Echinocytes 1+ 08/25/22 Na 137 mmol/L (136-145) 08/25/22 K 4.5 mmol/L (3.5-5.1) 08/25/22 Cl 110 mmol/L (98-107) H 08/25/22 CO2 27 mmol/L (21-32) 08/25/22 Anion Gap 0 (3-11) L 08/25/22 BUN 37 mg/dl (6-23) H 08/25/22 Creatinine 0.72 mg/dl (0.6-1.4) 08/25/22 Estimated GFR ( Amer) 123.4 ml/min 08/25/22 Estimated GFR (Non-Af Amer) 106.5 ml/min 08/25/22 BUN/Creatinine Ratio 51.4 (10-20) H 08/25/22 Glu 100 mg/dl (70-99(Fasting)) H 08/25/22 Ca 7.1 mg/dl (8.5-10.1) L 08/25/22 Total Bilirubin 1.1 mg/dl (0.2-1.0) H 08/25/22 Direct Bilirubin 0.4 mg/dl (0-0.2) H 08/25/22 AST 300 U/L (13-39) H 08/25/22 ALT 212 U/L (7-52) H 08/25/22 Alkaline Phosphatase 84 U/L (34-104) 08/25/22 TP 4.4 gm/dl (6.0-8.3) L 08/25/22 Albumin 2.0 gm/dl (3.4-5.0) L 08/25/22 Mg 1.9 mg/dl (1.7-2.4) 08/25/22 04:08 Calcium Level 7.1 mg/dl (8.5-10.1) L 08/25/22 04:08 Microbiology 08/23/22 Unknown Gram Stain - Final Peritoneal Fluid 08/22/22 13:04 Aerobic Blood Culture - Preliminary Blood No growth in Aerobic bottle after 24 hours. Anaerobic Blood Culture - Preliminary No growth in Anaerobic bottle after 24 hours. 08/22/22 15:45 Urine Culture - Preliminary Urine,Clean Catch Pin-point growth present, reincubating. 08/22/22 12:34 Aerobic Blood Culture - Preliminary Blood No growth in Aerobic bottle after 24 hours. Anaerobic Blood Culture - Preliminary No growth in Anaerobic bottle after 24 hours. Diagnostic Findings (Past 24 Hours) Paracentesis Ultrasound 08/23/22 10:19 ULTRASOUND GUIDED DIAGNOSTIC PARACENTESIS CLINICAL HISTORY: Ascites. COMPARISON STUDY: CT of the abdomen and pelvis August 22, 2022. PROCEDURE: Sonography of the abdomen and pelvis demonstrated a small amount of ascites, insufficient for therapeutic paracentesis. However, the amount of fluid was sufficient for diagnostic paracentesis. The risks, benefits, and alternatives to the procedure were discussed with the patient including the risk of bleeding, infection and injury to adjacent structures. The patient agreed to the procedure and informed written consent was obtained. Following real-time ultrasound localization, the skin of the right lower quadrant was prepped and draped. Following local anesthesia with Xylocaine, a 20-gauge, 3 1/2 inch needle was directed into the peritoneal cavity. There was immediate return of straw- colored ascites. 50 cc was aspirated and sent to the laboratory for analysis. The needle was removed. The patient tolerated the procedure well and no immediate complications were evident. IMPRESSION: Ultrasound-guided diagnostic paracentesis with aspiration of 50 cc of straw-colored ascites which was sent to the laboratory for analysis as ordered. ACT 112: Negative or not required by law. Electronically signed by: North Andrade M.D. 08/23/2022 1:37 PM I & O Totals 24 Hours 08/23/22 08/24/22 08/25/22 06:59 06:59 06:59 Intake Total 5071.500 / 5071.500 4443.357 / 4443.357 Output Total 1900 / 1900 1600 / 1600 Balance 3171.500 / 3171.500 2843.357 / 2843.357 Cumulative 08/22/22 10:32 thru 08/24/22 06:00 Intake Total 9514.857 Output Total 3500 Balance 6014.857 RT Ventilator Mngmt (Last Documented) Ventilator Ordered Settings Respiratory Rate 19 08/24/22 07:16 Fraction of Inspired Oxygen 4 08/23/22 21:50 Ventilator - PT Measurements Respiratory Rate 19 Coding Level of Care Code 50547 Subseq Hosp Care Lvl 3 Diagnoses COPD exacerbation J44.1 Cirrhosis K74.60 Hepatitis C virus B19.20 Pleural effusion J90 Coagulopathy D68.9 Ascites R18.8 Lactic acidosis E87.20 History of intravenous drug abuse F19.11 Anxiety F41.9 Acute on chronic blood loss anemia D62 Upper GI bleed K92.2 Hyperkalemia E87.5
[2022-08-24] MEDS: INSULIN ASPART PER UNIT SC SCH ×2 (07:58→11:47)
[2022-08-24] MEDS: PANTOprazole 40 MG TAB PO SCH ×2 (08:32→21:16)
[2022-08-24] MEDS: PROPRANOLOL HCL 10 MG TAB PO SCH ×3 (08:32→21:16)
--- NOTE | 2022-08-24 08:56 | Gastroenterology Progress Note ---
Date of Service August 24, 2022 Assessment & Plan Admission and Anticipated Discharge Date Admission Date: August 22, 2022 Subjective No events overnight. No BM since yesterday. PE: Comfortable HEENT: OC pink CV: RRR Abd: Mild diffuse tenderness, NT throughout Extrem: no edema; no asterixis, palms pink Hgb 8.1, Plts 112, BUN 44 AST 374 / ALT 219, AP 82 FLuid studies - High SAAG, low PMN count A/P Cirrhosis, presumably HCV Variceal bleed - Has completed 48 hours of octreotide - plan to continue 72 hours; please complete 3 days of both octreotide and PPI gtt. Abx x 7 days. Full liquids today, then soft Low NA diet tomorrow. Ascites - Defer lasix. On BB, watch for creat / worsening ascites on BB. Increased transaminases - Transaminases higher than expected with acute HCV, consider uls if persistent. CPK with next blood draw. Constipation - Possibly related to octreotide, can use miralax if needed. Results & Data ([facility]) Vital Signs (Past 12 Hours) Vital Signs Temp Pulse Pulse Resp BP Pulse Ox O2 Del Method 08/24/22 07:00 71 18 119/71 96 Nasal Cannula 08/24/22 07:15 Nasal Cannula 08/24/22 07:15 36.8 C 08/24/22 07:15 66 08/24/22 07:16 65 19 94 Nasal Cannula 08/24/22 04:00 69 94 08/24/22 04:00 104/73 08/24/22 03:00 67 95 08/24/22 03:00 96/55 L 08/24/22 02:00 64 93 08/24/22 02:00 106/66 08/24/22 01:19 98/64 L 08/24/22 01:19 69 95 08/24/22 01:00 68 94 08/24/22 00:00 69 93 08/24/22 00:00 94/59 L 08/24/22 03:50 37.0 C 08/24/22 00:00 66 08/23/22 23:00 71 92 08/23/22 23:00 101/61 08/23/22 22:33 75 91 08/23/22 22:33 111/64 08/23/22 22:30 79/42 L 08/23/22 22:30 73 92 08/23/22 22:15 93/61 L 08/23/22 22:15 74 92 08/23/22 22:00 74 92 08/23/22 22:00 111/70 08/23/22 21:45 77 93 08/23/22 21:45 114/70 08/23/22 21:30 77 93 08/23/22 21:30 117/65 08/23/22 21:15 129/72 08/23/22 21:15 76 93 08/23/22 21:00 79 95 08/23/22 21:00 119/77 08/23/22 21:50 Nasal Cannula 08/23/22 23:36 36.9 C O2 Flow Rate FiO2 08/24/22 07:00 2 08/24/22 07:15 2 08/24/22 07:15 08/24/22 07:15 08/24/22 07:16 3 08/24/22 04:00 08/24/22 04:00 08/24/22 03:00 08/24/22 03:00 08/24/22 02:00 08/24/22 02:00 08/24/22 01:19 08/24/22 01:19 08/24/22 01:00 08/24/22 00:00 08/24/22 00:00 08/24/22 03:50 08/24/22 00:00 08/23/22 23:00 08/23/22 23:00 08/23/22 22:33 08/23/22 22:33 08/23/22 22:30 08/23/22 22:30 08/23/22 22:15 08/23/22 22:15 08/23/22 22:00 08/23/22 22:00 08/23/22 21:45 08/23/22 21:45 08/23/22 21:30 08/23/22 21:30 08/23/22 21:15 08/23/22 21:15 08/23/22 21:00 08/23/22 21:00 08/23/22 21:50 4 08/23/22 23:36
[2022-08-24] MEDS: ALBUT/IPRATROP 3MG/0.5MG NEB 3 ML VIAL NEB SCH (09:48)
--- NOTE | 2022-08-24 16:43 | Hospitalist Progress Note ---
Date of Service August 24, 2022 Assessment & Plan (1) Upper GI bleed: Plan: Acute GI bleed most likely variceal bleeding, status post EGD and banding Status post 1 unit of packed RBC, currently hemoglobin is stable around 8.2 Cirrhosis, GIB from esophageal varices, s/p banding - Cont octreotide, PPI, abx. -- begin clears. - CT-A/P: 1. Cirrhosis with manifestations of portal hypertension including varices and moderate ascites.2. Mild gastric wall thickening and prominent mucosal enhancement. This is nonspecific although may reflect gastritis. Hyperdense material within the distal stomach which likely reflects ingested contents however clot could appear similar.3. No bowel obstruction. Jejunal wall thickening. This is also nonspecific and could be due to to portal hypertension or hypoalbuminemia.4. Moderate right and trace left pleural effusions.5. Small hiatal hernia with distal esophageal wall thickening which may reflect esophagitis. 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 -Possibly secondary to GI bleed and metabolic acidosis in the setting of lactate 6.6 - received dextrose/insulin/calcium (4) Anxiety: Plan: Anxiety Patient on mirtazapine 15 mg nightly, paroxetine 20 mg nightly [employer]GER [employer] P.o. meds held while n.p.o. Received Ativan IV in ER for anxiety, additional doses per clinical reassessment (5) Past use of tobacco: Plan: Hx tobacco use, ?COPD No diagnosis of COPD, has never had PFTs per pt Smoked 0.5 for at least 35 years, quit 6 months ago Scant wheezing on admission improved with methylpred + albuterol nebulizer in ER Patient denies using inhalers [employer]GER [employer], continue nebs as needed for wheezing/SOB is his facility med list. Defer additional steroids in the setting of acute bleeding Folow-up PFTs as outpatient (6) History of intravenous drug abuse: Plan: In remission for 2 years per patient, patient reports had not been tested for HIV/HCV in the past, although 1 note of possible testing in 06/2022 per record review. Hepatitis panel/HIV test pending. HIV test discussed with patient at time of admission, patient consents to testing (7) Hepatitis C virus: Plan: Patient denies this, one mention of HCV in [employer] review without additional details Plan Continue ICU stay, currently patient on octreotide drip Admission and Anticipated Discharge Date Admission Date: August 22, 2022 Subjective Advance diet to full liquid, no bowel movement, GI recommend 3-day treatment with octreotide and PPI drip, if tolerated full liquid proceed with soft low- sodium diet tomorrow, GI recommend ultrasound of the liver if transit amanita's is getting worse tomorrow, 6 constipation possibly because of octreotide CPK for tomorrow Results & Data Results & Data ([facility]) Vital Signs (Past 12 Hours) Vital Signs Temp Pulse Pulse Resp BP Pulse Ox O2 Del Method 08/24/22 15:00 67 08/24/22 11:00 67 20 99/64 L 92 08/24/22 10:00 71 18 110/71 92 08/24/22 09:00 67 16 104/63 91 08/24/22 08:32 71 98/62 L 89 L 08/24/22 08:00 75 18 102/75 88 L 08/24/22 07:00 71 18 119/71 96 Nasal Cannula 08/24/22 07:15 Nasal Cannula 08/24/22 07:15 36.8 C 08/24/22 07:15 66 08/24/22 07:16 65 19 94 Nasal Cannula O2 Flow Rate 08/24/22 15:00 08/24/22 11:00 08/24/22 10:00 08/24/22 09:00 08/24/22 08:32 08/24/22 08:00 08/24/22 07:00 2 08/24/22 07:15 2 08/24/22 07:15 08/24/22 07:15 08/24/22 07:16 3 PG Care Time/CCT Total # of Minutes Spent Total Time Spent with Patient: Total time spent is greater than 50% in coordination of care (as documented) at patient's floor/unit and/or counseling patient: Coding Level of Care Code 40696 Subseq Hosp Care Lvl 3 Diagnoses Upper GI bleed K92.2 Cirrhosis K74.60 Hyperkalemia E87.5 Anxiety F41.9 Past use of tobacco Z87.891 History of intravenous drug abuse F19.11 Hepatitis C virus B19.20
[2022-08-24] MEDS ORDERED: ACETAMINOPHEN 325 MG TAB PO PRN (18:14)
[2022-08-24] MEDS ORDERED: ACETAMINOPHEN 325 MG TAB ONE (18:17)
[2022-08-24] MEDS: cefTRIAXone SODIUM 2,000 MG in DEXTROSE 5% 50 ML IV SCH (20:17)
[2022-08-25 04:52] LABS: BUN Creatinine Ratio 51.4 (10-20); Bilirubin Direct 0.4 mg/dl (0-0.2); Bilirubin,Total 1.1 mg/dl (0.2-1.0); Calcium 7.1 mg/dl (8.5-10.1); Creatinine Clr Calc Pharmacy 140.4 ml/min; Est GFR (African American) 123.4 ml/min; Est GFR (Non-African American) 106.5 ml/min; Magnesium 1.9 mg/dl (1.7-2.4); Potassium 4.5 mmol/L (3.5-5.1); Total Protein 4.4 gm/dl (6.0-8.3)
[2022-08-25 05:02] LABS: Hemoglobin 8.6 g/dl (14.0-18.0); Mean Corpuscular Hemoglobin 30.7 pg (25.0-34.0); Mean Corpuscular Hgb Conc 33.1 g/dL (32.0-36.0); Mean Corpuscular Volume 92.9 fL (80.0-100.0); Mean Platelet Volume 10.8 fL (9.4-12.4); Platelet Count 110 K/uL (130-400); RDW Coefficient of Variation 15.8 % (11.5-14.5); RDW Standard Deviation 53.2 fL (36.4-46.3); White Blood Count 7.61 K/ul (4.8-10.8)
[2022-08-25 05:03] LABS: Basophils # (auto) 0.02 K/uL (0-0.2); Basophils % (auto) 0.3 %; Echinocytes 1+; Eosinophils # (auto) 0.09 K/uL (0-0.50); Eosinophils % (auto) 1.2 %; Immature Granulocytes # (auto) 0.05 K/uL (0.00-0.02); Immature Granulocytes % (auto) 0.7 %; Lymphocytes # (auto) 1.38 K/uL (1.2-3.4); Lymphocytes % (auto) 18.1 %; Monocytes # (auto) 0.85 K/uL (0.24-0.82); Monocytes % (auto) 11.2 %; Neutrophils # (auto) 5.22 K/uL (1.4-6.5); Neutrophils % (auto) 68.5 %; Platelet Estimate Decreased (Normal); Polychromasia 1+
[2022-08-25] MEDS: FORMOTEROL 20 MCG/2 ML VIAL INH SCH ×2 (07:06→19:23)
[2022-08-25] MEDS: BUDESONIDE 0.5 MG/2 ML VIAL (PULMICORT) NEB SCH ×2 (07:06→19:22)
[2022-08-25] MEDS: PANTOprazole 40 MG TAB PO SCH (08:16)
[2022-08-25] MEDS: PROPRANOLOL HCL 10 MG TAB PO SCH ×3 (08:16→20:50)
[2022-08-25] MEDS ORDERED: STAT IV STA (08:28)
--- NOTE | 2022-08-25 08:35 | Gastroenterology Progress Note ---
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 Blood ct stable, BP slightly soft but otherwise hemodynamically stable, no recurrence of melena or gross GI bleeding noted. US dx paracentesis completed 08/23 wo sign of SBP - Complete another day of PPI & Octreotide gtt - Ceftriaxone IV x 7 days total - Monitor blood ct and transfuse prn - CPK lab today - Advance to soft, 2g Na today - Consider repeat paracentesis if ascites accumulation; defer diuretics given borderline BP but consider initiation in the next 1-2 days. - May need to hold o Admission and Anticipated Discharge Date Admission Date: August 22, 2022 Supervising Physician Co-Signing Physician Notes Attg add: I interviewed and examined pt, reviewed chart and labs. Pt without gross bleeding. On exam, he is without evidence of HE. He has ascites and pedal edema. Recs as above. Subjective Pt had BM yesterday - soft, brown wo rectal bleeding. Denies abd pain ,n/v, tolerating FL diet. Review of Systems Review of Systems: All systems reviewed & are unremarkable except as noted in HPI & below Physical Exam Constitutional: WD/WN, vitals as above well groomed, cooperative and comfortable Eyes: PERRL, conjunctivae normal, anicteric sclerae ENMT: external ear and nose normal, oropharynx normal Respiratory: normal respiratory effort, lungs clear to auscultation (mild wheezing upper left lobe) Cardiovascular: RRR, no murmur, no edema Gastrointestinal (Abdomen): BS +, non tender, mildly distended Skin: no rashes, warm and dry no jaundice Neurologic: Motor/Sensory: no asterixis Psychiatric: A+Ox3, euthymic affect Lymphatic: no lymphedema Results & Data ([facility]) Vital Signs (Past 12 Hours) Vital Signs Temp Pulse Pulse Resp BP Pulse Ox O2 Del Method 08/25/22 07:06 67 18 94 Nasal Cannula 08/25/22 06:00 62 93/67 L 94 Nasal Cannula 08/25/22 05:00 71 91/70 L 97 Nasal Cannula 08/25/22 04:00 36.6 C 59 L 20 108/64 97 Nasal Cannula 08/25/22 03:00 63 104/57 L 93 Nasal Cannula 08/25/22 02:00 62 103/60 94 Nasal Cannula 08/25/22 01:00 64 98/60 L 94 Nasal Cannula 08/25/22 00:00 37 C 62 16 96/60 L 93 Nasal Cannula 08/24/22 23:00 64 104/72 92 Nasal Cannula 08/24/22 22:00 70 102/63 93 Nasal Cannula 08/24/22 21:00 68 122/74 94 Nasal Cannula O2 Flow Rate 08/25/22 07:06 2 08/25/22 06:00 2 08/25/22 05:00 2 08/25/22 04:00 2 08/25/22 03:00 2 08/25/22 02:00 2 08/25/22 01:00 2 08/25/22 00:00 2 08/24/22 23:00 2 08/24/22 22:00 2 08/24/22 21:00 2
--- NOTE | 2022-08-25 08:43 | Hospitalist Progress Note ---
Date of Service August 25, 2022 Assessment & Plan (1) Upper GI bleed: Plan: Acute GI bleed most likely variceal bleeding, status post EGD and banding Status post 1 unit of packed RBC, currently hemoglobin is stable around 8.6 Cirrhosis,Cont octreotide, PPI, abx. - CT-A/P: 1. Cirrhosis with manifestations of portal hypertension including varices and moderate ascites.2. Mild gastric wall thickening and prominent mucosal enhancement. This is nonspecific although may reflect gastritis. Hyperdense material within the distal stomach which likely reflects ingested contents however clot could appear similar.3. No bowel obstruction. Jejunal wall thickening. This is also nonspecific and could be due to to portal hypertension or hypoalbuminemia.4. Moderate right and trace left pleural effusions.5. Small hiatal hernia with distal esophageal wall thickening which may reflect esophagitis. On octreotide drip & Protonix drip recommended for 48 hours from the morning of August 25 Currently on Rocephin for coverage for spontaneous bacterial peritonitis -Propranolol to reduce splanchnic pressure although systemic blood pressures are soft. This limits diuresis capabilities at this time (2) Cirrhosis: Plan: History of cirrhosis -History of hepatitis C has not been treated, GI recommend transfer to Center with IR/TIPS capacity if patient rebleeds Patient reports he was not aware he had a history of this IV drug use in remission for 2 years, past alcohol use in remission for more than 10 years -LFTs elevated - INR elevated, cirrhotic coagulopathy; vitamin K 5 mg x 1 IV given in ER Patient initially hypotensive with elevated lactate, suspect hypovolemic shock from acute blood loss - question hypoperfusion injury Octreotide/PPI/antibiotic management as [facility] recommendations (3) Hyperkalemia: Plan: Hyperkalemia -Resolved - received dextrose/insulin/calcium (4) Anxiety: Plan: Anxiety Patient on mirtazapine 15 mg nightly, paroxetine 20 mg restarted Received Ativan IV in ER for anxiety, additional doses per clinical reassessment (5) Past use of tobacco: Plan: Hx tobacco use, No diagnosis of COPD, Smoked 0.5 for at least 35 years, quit 6 months ago Scant wheezing on admission improved with methylpred + albuterol nebulizer in ER 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 Defer additional steroids in the setting of acute bleeding Folow-up PFTs as outpatient (6) History of intravenous drug abuse: Plan: In remission for 2 years per patient, patient reports had not been tested for HIV/HCV in the past, although 1 note of possible testing in 06/2022 per record review. Hepatitis panel/HIV test pending. HIV test discussed with patient at time of admission, patient consents to testing (7) Hepatitis C virus: Plan: Patient unaware of this, one mention of HCV in [place] review without additional details Admission and Anticipated Discharge Date Admission Date: August 22, 2022 Subjective Patient was seen in the presence of the correctional facility agents. He he has no focus complaints except for lower extremity swelling. He understands of his new diagnosis of hepatitis C. He do not quite understand the esophageal varices but we went over reinforced this. Review of Systems Review of Systems: Moderate distress and fatigue no headache, no visual changes no speech or swallowing issues no chest pain, pressure or palpitations no shortness of breath, cough or wheezes no abdominal pain, feeling of fullness and distention, no nausea or vomiting, no dysuria, hematuria or frequency no focal joint pain does have significant lower extremity swelling bilaterally which is bothersome to him no back pain, CVA tenderness or radicular pain no bruising, bleeding or rashes no focal signs of weakness or numbness or altered sensation no complaints of anxiety or depression.. Physical Exam Physical Exam: The patient appeared well nourished and normally developed. Vital signs as documented. Head exam is normocephalic atraumatic Neck is with 2cm JVD, thyromegaly, or carotid bruits. Lungs are clear to auscultation, but diminished at the bases otherwise no focal loss of breath sounds Cardiac exam, Rhythm is regular.. No murmurs, rubs or gallops. Abdominal exam reveals normal bowel sounds, soft dull and firm to examination but not acute abdomen Extremities are 2+ edematous bilaterally and both pedal pulses are present Neurologic exam is alert and oriented, no focal loss of strength or sensation no asterixis Skin is without bruises or rashes Psychologically is without concerns for anxiety or depression.. Results & Data Results & Data ([facility]) Vital Signs (Past 12 Hours) Vital Signs Temp Pulse Pulse Resp BP Pulse Ox O2 Del Method 08/25/22 07:06 67 18 94 Nasal Cannula 08/25/22 06:00 62 93/67 L 94 Nasal Cannula 08/25/22 05:00 71 91/70 L 97 Nasal Cannula 08/25/22 04:00 97.9 F 59 L 20 108/64 97 Nasal Cannula 08/25/22 03:00 63 104/57 L 93 Nasal Cannula 08/25/22 02:00 62 103/60 94 Nasal Cannula 08/25/22 01:00 64 98/60 L 94 Nasal Cannula 08/25/22 00:00 98.6 F 62 16 96/60 L 93 Nasal Cannula 08/24/22 23:00 64 104/72 92 Nasal Cannula 08/24/22 22:00 70 102/63 93 Nasal Cannula 08/24/22 21:00 68 122/74 94 Nasal Cannula O2 Flow Rate 08/25/22 07:06 2 08/25/22 06:00 2 08/25/22 05:00 2 08/25/22 04:00 2 08/25/22 03:00 2 08/25/22 02:00 2 08/25/22 01:00 2 08/25/22 00:00 2 08/24/22 23:00 2 08/24/22 22:00 2 08/24/22 21:00 2 PG Care Time/CCT Total # of Minutes Spent Total Time Spent with Patient: Total time spent is greater than 50% in coordination of care (as documented) at patient's floor/unit and/or counseling patient: Coding Level of Care Code 39119 Subseq Hosp Care Lvl 3 Diagnoses Upper GI bleed K92.2 Cirrhosis K74.60 Hyperkalemia E87.5 Anxiety F41.9 Past use of tobacco Z87.891 History of intravenous drug abuse F19.11 Hepatitis C virus B19.20
[2022-08-25] MEDS: PANTOprazole 40 MG in DEXTROSE 5% 100 ML IV SCH ×4 (09:36→22:35)
[2022-08-25] MEDS: OCTREOTIDE ACETATE 500 MCG in DEXTROSE 5% 100 ML IV SCH ×2 (09:36→16:49)
[2022-08-25] MEDS ORDERED: FUROSEMIDE 40 MG TAB PO SCH (13:00)
[2022-08-25] MEDS ORDERED: SPIRONOLACTONE 100 MG TAB PO SCH (13:00)
--- NOTE | 2022-08-25 15:31 | Ultrasound Report ---
US abdomen ltd ascites CLINICAL HISTORY: ascites TECHNIQUE: Real-time grayscale sonographic images of the abdomen were obtained. Comparison: Comparison is made to paracentesis ultrasound 08/23/2022 FINDINGS/IMPRESSION: Small ascites is seen, decreased from prior exam. ACT 112: Negative or not required by law. Electronically signed by: Jaspal Victoria M.D. 08/25/2022 3:29 PM
[2022-08-25] MEDS: cefTRIAXone SODIUM 2,000 MG in DEXTROSE 5% 50 ML IV SCH (20:49)
[2022-08-25] MEDS: MIRTAZAPINE TAB 15 MG TAB PO SCH (20:49)
[2022-08-25] MEDS ORDERED: ONDANSETRON INJ 2 MG/ML 2 ML VIAL IV PRN (22:54)
[2022-08-26] MEDS: PANTOprazole 40 MG in DEXTROSE 5% 100 ML IV SCH ×6 (03:02→23:36)
[2022-08-26] MEDS: OCTREOTIDE ACETATE 500 MCG in DEXTROSE 5% 100 ML IV SCH ×3 (03:02→18:46)
[2022-08-26 07:02] LABS: Basophils # (auto) 0.04 K/uL (0-0.2); Basophils % (auto) 0.4 %; Eosinophils # (auto) 0.35 K/uL (0-0.50); Eosinophils % (auto) 3.2 %; Hematocrit (blood only) 31.9 % (40.1-51.0); Hemoglobin 10.7 g/dl (14.0-18.0); Immature Granulocytes # (auto) 0.06 K/uL (0.00-0.02); Immature Granulocytes % (auto) 0.6 %; Lymphocytes # (auto) 1.81 K/uL (1.2-3.4); Lymphocytes % (auto) 16.8 %; Mean Corpuscular Hemoglobin 30.7 pg (25.0-34.0); Mean Corpuscular Hgb Conc 33.5 g/dL (32.0-36.0); Mean Corpuscular Volume 91.4 fL (80.0-100.0); Mean Platelet Volume 11.4 fL (9.4-12.4); Monocytes # (auto) 1.41 K/uL (0.24-0.82); Monocytes % (auto) 13.1 %; Neutrophils # (auto) 7.12 K/uL (1.4-6.5); Neutrophils % (auto) 65.9 %; Platelet Count 137 K/uL (130-400); RDW Coefficient of Variation 15.4 % (11.5-14.5); RDW Standard Deviation 50.2 fL (36.4-46.3); Red Blood Count 3.49 M/uL (4.63-6.08); White Blood Count 10.79 K/ul (4.8-10.8)
[2022-08-26] MEDS: FORMOTEROL 20 MCG/2 ML VIAL INH SCH (07:23)
[2022-08-26] MEDS: BUDESONIDE 0.5 MG/2 ML VIAL (PULMICORT) NEB SCH (07:23)
--- NOTE | 2022-08-26 08:14 | Hospitalist Progress Note ---
Date of Service August 26, 2022 Assessment & Plan (1) Upper GI bleed: Plan: Acute GI bleed most likely variceal bleeding, status post EGD and banding, GAVE and esophageal varices seen Status post 1 unit of packed RBC, currently hemoglobin is stable around 8.6 Cirrhosis,Cont octreotide, PPI, abx. - CT-A/P: 1. Cirrhosis with manifestations of portal hypertension including varices and moderate ascites.2. Mild gastric wall thickening and prominent mucosal enhancement. This is nonspecific although may reflect gastritis. Hyperdense material within the distal stomach which likely reflects ingested contents however clot could appear similar.3. No bowel obstruction. Jejunal wall thickening. This is also nonspecific and could be due to to portal hypertension or hypoalbuminemia.4. Moderate right and trace left pleural effusions.5. Small hiatal hernia with distal esophageal wall thickening which may reflect esophagitis. Abd U/S 08/25/22 with small ascites decreased from prior. On octreotide drip & Protonix drip recommended for 48 hours continues thru August 27 Currently on Rocephin for coverage for spontaneous bacterial peritonitis -Propranolol to reduce splanchnic pressure although systemic blood pressures are soft. This limits diuresis capabilities at this time, furosemide and spironolactone were given on 08/25 will be reassessed to be given on 08/26 With nausea after eating with diarrhea diet with concerns if this could be gastritis (2) Cirrhosis: Plan: History of cirrhosis -History of hepatitis C has not been treated, GI recommend transfer to Center with IR/TIPS capacity if patient rebleeds Patient reports he was not aware he had a history of this IV drug use in remission for 2 years, past alcohol use in remission for more than 10 years -LFTs elevated - INR elevated, cirrhotic coagulopathy; vitamin K 5 mg x 1 IV given in ER Patient initially hypotensive with elevated lactate, suspect hypovolemic shock from acute blood loss - question hypoperfusion injury Octreotide/PPI/antibiotic management as [facility] recommendations (3) Hyperkalemia: Plan: Hyperkalemia -Resolved - received dextrose/insulin/calcium (4) Anxiety: Plan: Anxiety Patient on mirtazapine 15 mg nightly, paroxetine 20 mg restarted Received Ativan IV in ER for anxiety, additional doses per clinical reassessment (5) Past use of tobacco: Plan: Hx tobacco use, No diagnosis of COPD, Smoked 0.5 for at least 35 years, quit 6 months ago Scant wheezing on admission improved with methylpred + albuterol nebulizer in ER 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 Defer additional steroids in the setting of acute bleeding Folow-up PFTs as outpatient (6) History of intravenous drug abuse: Plan: In remission for 2 years per patient, patient reports had not been tested for HIV/HCV in the past, although 1 note of possible testing in 06/2022 per record review. Hepatitis panel/HIV test pending. HIV test discussed with patient at time of admission, patient consents to testing (7) Hepatitis C virus: Plan: Patient unaware of this, one mention of HCV in [employer] review without additional details Admission and Anticipated Discharge Date Admission Date: August 22, 2022 Subjective Patient is some nausea today after eating his diet be downgraded he tolerated diuretic therapy on 08/25 with out decline in his blood pressure reportedly only 1400 out more than in Patient had a bowel movement but cannot recall whether it is melanotic or not hemoglobin has been stable Review of Systems Review of Systems: Moderate distress and fatigue no headache, no visual changes no speech or swallowing issues no chest pain, pressure or palpitations no shortness of breath, cough or wheezes no abdominal pain, feeling of fullness and distention, no nausea or vomiting, no dysuria, hematuria or frequency no focal joint pain does have significant lower extremity swelling bilaterally which is bothersome to him no back pain, CVA tenderness or radicular pain no bruising, bleeding or rashes no focal signs of weakness or numbness or altered sensation no complaints of anxiety or depression.. Physical Exam Physical Exam: The patient appeared well nourished and normally developed. Vital signs as documented. Head exam is normocephalic atraumatic Neck is with 2cm JVD, thyromegaly, or carotid bruits. Lungs are clear to auscultation, but diminished at the bases otherwise no focal loss of breath sounds Cardiac exam, Rhythm is regular.. No murmurs, rubs or gallops. Abdominal exam reveals normal bowel sounds, soft dull and firm to examination but not acute abdomen Extremities are 2+ edematous bilaterally and both pedal pulses are present Neurologic exam is alert and oriented, no focal loss of strength or sensation no asterixis Skin is without bruises or rashes Psychologically is without concerns for anxiety or depression.. Results & Data Results & Data ([facility]) Vital Signs (Past 12 Hours) Vital Signs Temp Pulse Pulse Pulse Resp BP BP 08/26/22 08:04 98.8 F 64 18 97/69 L 08/26/22 07:23 67 18 08/26/22 05:00 63 104/69 08/26/22 04:00 63 08/26/22 03:00 64 104/71 08/26/22 02:00 65 107/69 08/26/22 01:00 66 98/68 L 08/26/22 00:00 68 106/65 08/26/22 00:04 69 08/25/22 23:00 69 100/68 08/25/22 22:00 68 08/25/22 21:00 77 96/67 L 08/25/22 23:10 98.1 F 67 18 100/68 Pulse Ox O2 Del Method 08/26/22 08:04 92 Room Air 08/26/22 07:23 91 Room Air 08/26/22 05:00 92 08/26/22 04:00 90 08/26/22 03:00 88 L 08/26/22 02:00 90 08/26/22 01:00 90 08/26/22 00:00 89 L 08/26/22 00:04 08/25/22 23:00 91 08/25/22 22:00 92 08/25/22 21:00 90 08/25/22 23:10 90 Room Air PG Care Time/CCT Total # of Minutes Spent Total Time Spent with Patient: Total time spent is greater than 50% in coordination of care (as documented) at patient's floor/unit and/or counseling patient: Coding Level of Care Code 22171 Subseq Hosp Care Lvl 2 Diagnoses Upper GI bleed K92.2 Cirrhosis K74.60 Hyperkalemia E87.5 Anxiety F41.9 Past use of tobacco Z87.891 History of intravenous drug abuse F19.11 Hepatitis C virus B19.20
[2022-08-26] MEDS: PARoxetine HCL 20 MG TAB PO SCH (08:40)
[2022-08-26] MEDS: PROPRANOLOL HCL 10 MG TAB PO SCH ×3 (08:40→21:50)
[2022-08-26] MEDS ORDERED: STAT IV STA (09:13)
--- NOTE | 2022-08-26 09:22 | Gastroenterology Progress Note ---
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 Blood ct improved, BP slightly soft but otherwise hemodynamically stable, no recurrence of melena or gross GI bleeding noted. US dx paracentesis completed 08/23 wo sign of SBP. Attempted repeat paracentesis yesterday cancelled due to only small volume ascites noted on U/S. - Complete last day of PPI & Octreotide gtt - Ceftriaxone IV x 7 days total - Monitor blood ct and transfuse prn - CPK normal; LFTs mildly improved, will continue to trend. - FL diet - Lasix 40mg daily + Spironolactone 100mg daily - Zofran prn n/v Admission and Anticipated Discharge Date Admission Date: August 22, 2022 Supervising Physician Co-Signing Physician Notes ATtg add: I reviewed chart and labs. Pt without evidence of recurrent GIB. Recs as above. Subjective Pt reports some nausea but no vomiting, started 3 hrs after dinner last night. Did not want to eat breakfast this AM. Denies abd pain. BM this AM, no melena or rectal bleeding per RN. Review of Systems Review of Systems: All systems reviewed & are unremarkable except as noted in HPI & below Physical Exam Constitutional: WD/WN, vitals as above well groomed, cooperative and comfortable Eyes: PERRL, conjunctivae normal, anicteric sclerae ENMT: external ear and nose normal, oropharynx normal Respiratory: normal respiratory effort, lungs clear to auscultation (mild wheezing upper left lobe) Cardiovascular: RRR, no murmur, no edema Gastrointestinal (Abdomen): Mild distension, no guarding, non tender, BS + Skin: no rashes, warm and dry no jaundice Psychiatric: A+Ox3, euthymic affect Lymphatic: no lymphedema Results & Data ([facility]) Vital Signs (Past 12 Hours) Vital Signs Temp Pulse Pulse Pulse Resp BP BP 08/26/22 08:04 37.1 C 64 18 97/69 L 08/26/22 07:23 67 18 08/26/22 05:00 63 104/69 08/26/22 04:00 63 08/26/22 03:00 64 104/71 08/26/22 02:00 65 107/69 08/26/22 01:00 66 98/68 L 08/26/22 00:00 68 106/65 08/26/22 00:04 69 08/25/22 23:00 69 100/68 08/25/22 22:00 68 08/25/22 23:10 36.7 C 67 18 100/68 Pulse Ox O2 Del Method 08/26/22 08:04 92 Room Air 08/26/22 07:23 91 Room Air 08/26/22 05:00 92 08/26/22 04:00 90 08/26/22 03:00 88 L 08/26/22 02:00 90 08/26/22 01:00 90 08/26/22 00:00 89 L 08/26/22 00:04 08/25/22 23:00 91 08/25/22 22:00 92 08/25/22 23:10 90 Room Air
[2022-08-26] MEDS: METOCLOPRAMIDE HCL INJ 5 MG/ML 2 ML VIAL IV SCH ×2 (12:26→21:49)
[2022-08-26 15:52] LABS: Uric Acid, Random Urine 23 mg/dL
[2022-08-26] MEDS ORDERED: PANTOprazole 40 MG TAB PO SCH (21:00)
[2022-08-26] MEDS: MIRTAZAPINE TAB 15 MG TAB PO SCH (21:50)
[2022-08-26] MEDS: cefTRIAXone SODIUM 2,000 MG in DEXTROSE 5% 50 ML IV SCH (21:50)
[2022-08-27] MEDS: METOCLOPRAMIDE HCL INJ 5 MG/ML 2 ML VIAL IV SCH ×2 (04:21→20:42)
[2022-08-27] MEDS: OCTREOTIDE ACETATE 500 MCG in DEXTROSE 5% 100 ML IV SCH (04:30)
[2022-08-27] MEDS: PANTOprazole 40 MG in DEXTROSE 5% 100 ML IV SCH ×2 (04:31→09:36)
[2022-08-27] MEDS: PROPRANOLOL HCL 10 MG TAB PO SCH ×3 (09:37→20:43)
[2022-08-27] MEDS: PARoxetine HCL 20 MG TAB PO SCH (09:37)
[2022-08-27] MEDS: FLUTICASONE/VILANTEROL 100/25MCG 14 PUFFS/INHALER INH SCH ×2 (09:38→12:23)
--- NOTE | 2022-08-27 10:44 | Gastroenterology Progress Note ---
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 Blood ct improved, BP slightly soft but otherwise hemodynamically stable, no recurrence of melena or gross GI bleeding noted. US dx paracentesis completed 08/23 wo sign of SBP. Attempted repeat paracentesis 08/25 cancelled due to only small volume ascites noted on U/S. Clinically doing well, ready for discharge from GI standpoint. - DC PPI & Octreotide gtt; Start Protonix 40mg BID and continue for 1 month, then d/c. - Ceftriaxone IV x 7 days total - Monitor blood ct and transfuse prn - CPK normal; LFTs mildly improved, will continue to trend. - Advance diet as tolerated to 2g Na diet, soft, minced and moist - Lasix 20 mg daily + Spironolactone 50mg daily - Reglan 5mg IV q12hrs due to octreotide induced ileus with plans to d/c on discharge. - GI to sign off; pls recall prn. Recommend f/u in 1month's time in GI clinic. Admission and Anticipated Discharge Date Admission Date: August 22, 2022 Supervising Physician Co-Signing Physician Notes Attg add: I interviewed and examined pt, reviewed chart and labs. Pt without complaints, without issues. Transaminases coming down. Hgb stable. REcommendations as above. Subjective Patient reports she is feeling well, denies any chest pain or shortness of breath, abdominal pain, nausea or vomiting. Had a BM this morning. Review of Systems Review of Systems: All systems reviewed & are unremarkable except as noted in HPI & below Physical Exam Constitutional: WD/WN, vitals as above well groomed, cooperative and comfortable Eyes: PERRL, conjunctivae normal, anicteric sclerae ENMT: external ear and nose normal, oropharynx normal Respiratory: normal respiratory effort, lungs clear to auscultation (mild wheezing upper left lobe) Cardiovascular: RRR, no murmur, no edema Gastrointestinal (Abdomen): Mild distention, nontender, bowel sounds present Skin: no rashes, warm and dry no jaundice Psychiatric: A+Ox3, euthymic affect Lymphatic: no lymphedema Results & Data ([facility]) Vital Signs (Past 12 Hours) Vital Signs Temp Pulse Pulse Resp BP Pulse Ox O2 Del Method 08/27/22 08:00 60 08/27/22 07:00 69 18 121/77 95 Room Air 08/27/22 03:20 36.6 C 63 18 114/69 93 Room Air
[2022-08-27 11:00] LABS: Basophils # (auto) 0.03 K/uL (0-0.2); Basophils % (auto) 0.3 %; Eosinophils # (auto) 0.64 K/uL (0-0.50); Eosinophils % (auto) 6.6 %; Hematocrit (blood only) 30.7 % (40.1-51.0); Hemoglobin 10.1 g/dl (14.0-18.0); Immature Granulocytes # (auto) 0.04 K/uL (0.00-0.02); Immature Granulocytes % (auto) 0.4 %; Lymphocytes # (auto) 1.26 K/uL (1.2-3.4); Lymphocytes % (auto) 12.9 %; Mean Corpuscular Hemoglobin 30.6 pg (25.0-34.0); Mean Corpuscular Hgb Conc 32.9 g/dL (32.0-36.0); Mean Platelet Volume 11.1 fL (9.4-12.4); Monocytes % (auto) 15.4 %; Neutrophils # (auto) 6.29 K/uL (1.4-6.5); Neutrophils % (auto) 64.4 %; Platelet Count 145 K/uL (130-400); RDW Standard Deviation 51.1 fL (36.4-46.3); White Blood Count 9.76 K/ul (4.8-10.8)
[2022-08-27 11:13] LABS: Albumin Globulin Ratio 0.7 (0.9-2); Bilirubin,Total 1.1 mg/dl (0.2-1.0); Calcium 7.2 mg/dl (8.5-10.1); Creatinine Clr Calc Pharmacy 142.3 ml/min; Est GFR (African American) 124.2 ml/min; Est GFR (Non-African American) 107.1 ml/min; Globulin 2.8 gm/dl (2.5-4.0); Potassium 4.3 mmol/L (3.5-5.1); Total Protein 4.8 gm/dl (6.0-8.3)
--- NOTE | 2022-08-27 11:29 | Hospitalist Progress Note ---
Date of Service August 27, 2022 Assessment & Plan (1) Upper GI bleed: Plan: Presented with acute GI bleed with melena in the setting of hepatitis C cirrhosis-previously unknown diagnosis CT A/P - 1. Cirrhosis with manifestations of portal hypertension including farrah ices and moderate ascites.2. Mild gastric wall thickening and prominent mucosal enhancement. This is nonspecific although may reflect gastritis. Hyperdense material within the distal stomach which likely reflects ingested contents however clot could appear similar.3. No bowel obstruction. Jejunal wall thickening. This is also nonspecific and could be due to to portal hypertension or hypoalbuminemia.4. Moderate right and trace left pleural effusions.5. Small hiatal hernia with distal esophageal wall thickening which may reflect esophagitis. Appreciate GI management-status post EGD-found multiple columns grade 2 varices in lower esophagus, erosion overlying grade 2 varix without active bleeding, large amount of clotted dark red blood in fundus, also with gastric varices and portal gastropathy. Presumably with bleeding from erosion at GE junction overlying the varix. S/p banding of varices No further melena in several days -Was given many days of octreotide and Protonix drips -Remains on 7-day course of ceftriaxone -Status post total 3 units PRBCs and hemoglobin now remains stable at 10 -GI recommends consideration for transfer to Center with IR/TIPS capability if he rebleeds -Now on Protonix 40 Mg p.o. twice daily -Continue Reglan 5 Mg IV every 12 hours -[facility] 1 month and after transfers to rehab from senior care, would need to find a deputy district customs director/jacquard loom fixer in whichever city he resides -Advance to low-sodium minced and moist diet today -Follow CBC in the morning (2) Acute blood loss anemia: Plan: As above Follow CBC (3) Cirrhosis: Plan: History of cirrhosis -History of hepatitis C that has not been treated Patient reports he was not aware he had a history of this -With a history of IV drug use in remission for 2 years, 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 3 times daily, Lasix 20 Mg p.o. once daily, spironolactone 50 Mg p.o. once daily -Needs GI follow-up after discharge -Low-sodium diet -Limit Tylenol use (4) Hyponatremia: Plan: Sodium mildly low at 133 Likely due to cirrhosis and volume overload Starting diuretics Follow BMP (5) Hepatitis C virus: Plan: With positive hepatitis C virus antibody here, RNA titer/quant pending Likely cause of current cirrhosis Follow-up with hepatology after discharge (6) Hyperkalemia: Plan: Present on admission, resolved with treatment with insulin and dextrose -Watch BMP with starting spironolactone (7) Anxiety: Plan: Patient on mirtazapine 15 mg nightly, paroxetine 20 mg (8) Past use of tobacco: Plan: Hx tobacco use, No diagnosis of COPD, Smoked 0.5 for at least 35 years, quit 6 months ago Scant wheezing on admission improved with methylpred + albuterol nebulizer in ER Patient denies using inhalers [employer], continue nebs as needed for wheezing/SOB is his facility med list. Defer additional steroids in the setting of acute bleed ing Follow-up PFTs as outpatient (9) History of intravenous drug abuse: Plan: In remission for 2 years per patient HIV negative HCV positive (10) Esophageal varices: Plan: As noted above (11) Thrombocytopenia: Plan: Secondary to cirrhosis Mild Follow CBC (12) Pleural effusion: Plan: Small moderate pleural effusions on admission secondary to ascites and cirrhosis Not hypoxic and no dyspnea Starting diuretics Plan DVT prophylaxis-no chemical prophylaxis due to recent GI bleeding Disposition-continued stay overnight but possible discharge back to senior care tomorrow if remains stable and tolerating regular diet Care discussed with GI nurse practitioner Admission and Anticipated Discharge Date Admission Date: August 22, 2022 Subjective Pt feeling better. No nausea, mani liquids diet. Moved bowels this AM, brown stool, denies abd pain, no CP/SOB, denies lightheadedness. Tele with NSR normal rates in 70s Review of Systems Review of Systems: All systems reviewed & are unremarkable except as noted in HPI & below Physical Exam Constitutional: WD/WN, vitals as above Eyes: + anicteric sclerae Neck: trachea midline, no thyromegaly Respiratory: normal respiratory effort, lungs clear to auscultation Cardiovascular: Rate/Rhythm: regular rate and regular rhythm Heart Sounds: no murmur Extremities: + edema (1+ pitting edema legs bilat,arms mild edema) Chest (Breasts): Chest: normal inspection of chest Gastrointestinal (Abdomen): Inspection/Auscultation: abdomen normal to inspection, + abdomen distended (mild) and normal bowel sounds Percussion/Palpation: abdomen soft; abdomen nontender and no guarding Musculoskeletal: Extremities: no cyanosis and no clubbing Skin: no rashes, warm and dry Neurologic: moves all extremities and awake; no focal motor deficits Psychiatric: A+Ox3, euthymic affect Results & Data Results & Data ([facility]) Vital Signs (Past 12 Hours) Vital Signs Temp Pulse Pulse Resp BP Pulse Ox O2 Del Method 08/27/22 10:54 Room Air 08/27/22 08:00 60 08/27/22 07:00 69 18 121/77 95 Room Air 08/27/22 03:20 36.6 C 63 18 114/69 93 Room Air Laboratory Results 08/27/22 08/27/22 08/22/22 Range/Units 10:33 10:33 21:10 WBC 9.76 (4.8-10.8) K/ul RBC 3.30 L (4.63-6.08) M/uL Hgb 10.1 L (14.0-18.0) g/dl Hct 30.7 L (40.1-51.0) % MCV 93.0 (80.0-100.0) fL MCH 30.6 (25.0-34.0) pg MCHC 32.9 (32.0-36.0) g/dL RDW Std Deviation 51.1 H (36.4-46.3) fL RDW Coeff of Farrah 15.0 H (11.5-14.5) % Plt Count 145 (130-400) K/uL MPV 11.1 (9.4-12.4) fL Immature Gran % (Auto) 0.4 % Neut % (Auto) 64.4 % Lymph % (Auto) 12.9 % [place] % (Auto) 15.4 % Eos % (Auto) 6.6 % Baso % (Auto) 0.3 % Neut # (Auto) 6.29 (1.4-6.5) K/uL Lymph # (Auto) 1.26 (1.2-3.4) K/uL [place] # (Auto) 1.50 H (0.24-0.82) K/uL Eos # (Auto) 0.64 H (0-0.50) K/uL Baso # (Auto) 0.03 (0-0.2) K/uL Immature Gran # (Auto) 0.04 H (0.00-0.02) K/uL Sodium 133 L (136-145) mmol/L Potassium 4.3 (3.5-5.1) mmol/L Chloride 108 H (98-107) mmol/L Carbon Dioxide 23 (21-32) mmol/L Anion Gap 2 L (3-11) BUN 22 (6-23) mg/dl Creatinine 0.71 (0.6-1.4) mg/dl Est Cr Clr Drug Dosing 142.3 ml/min Est GFR ( Amer) 124.2 ml/min Est GFR (Non-Af Amer) 107.1 ml/min BUN/Creatinine Ratio 31.0 H (10-20) Glucose 105 H (70-99(Fasting)) mg/dl Calcium 7.2 L (8.5-10.1) mg/dl Total Bilirubin 1.1 H (0.2-1.0) mg/dl AST 127 H (13-39) U/L ALT 137 H (7-52) U/L Alkaline Phosphatase 91 (34-104) U/L Total Protein 4.8 L (6.0-8.3) gm/dl Albumin 2.0 L (3.4-5.0) gm/dl Globulin 2.8 (2.5-4.0) gm/dl Albumin/Globulin Ratio 0.7 L (0.9-2) Ur Random Uric Acid 23 mg/dL PG Care Time/CCT Total # of Minutes Spent Total Time Spent with Patient: Total time spent is greater than 50% in coordination of care (as documented) at patient's floor/unit and/or counseling patient: Coding Level of Care Code 69917 Subseq Hosp Care Lvl 3 Diagnoses Upper GI bleed K92.2 Acute blood loss anemia D62 Cirrhosis K74.60 Hyponatremia E87.1 Hepatitis C virus B19.20 Hyperkalemia E87.5 Anxiety F41.9 Past use of tobacco Z87.891 History of intravenous drug abuse F19.11 Esophageal varices I85.00 Thrombocytopenia D69.6 Pleural effusion J90
[2022-08-27] MEDS ORDERED: FUROSEMIDE 40 MG TAB PO ONE (11:35)
[2022-08-27] MEDS ORDERED: SPIRONOLACTONE 100 MG TAB PO ONE (11:35)
[2022-08-27 15:06] LABS: HBSAG NON-REACTIVE (NON-REACTIVE); Hepatitis A Antibody IgM NON-REACTIVE (NON-REACTIVE); Hepatitis B Core Antibody IgM NON-REACTIVE (NON-REACTIVE)
[2022-08-27] MEDS: PANTOprazole 40 MG TAB PO SCH (20:43)
[2022-08-27] MEDS: MIRTAZAPINE TAB 15 MG TAB PO SCH (20:43)
[2022-08-27] MEDS: cefTRIAXone SODIUM 2,000 MG in DEXTROSE 5% 50 ML IV SCH (20:44)
[2022-08-28] MEDS: FLUTICASONE/VILANTEROL 100/25MCG 14 PUFFS/INHALER INH SCH (08:12)
[2022-08-28] MEDS: PANTOprazole 40 MG TAB PO SCH (08:15)
[2022-08-28] MEDS: PARoxetine HCL 20 MG TAB PO SCH (08:15)
[2022-08-28] MEDS: METOCLOPRAMIDE HCL INJ 5 MG/ML 2 ML VIAL IV SCH (08:15)
[2022-08-28] MEDS: PROPRANOLOL HCL 10 MG TAB PO SCH ×2 (08:15→13:35)
[2022-08-28 08:46] LABS: Albumin Globulin Ratio 0.8 (0.9-2); Albumin Level 2.3 gm/dl (3.4-5.0); BUN Creatinine Ratio 30.9 (10-20); Bilirubin,Total 1.4 mg/dl (0.2-1.0); Calcium 7.1 mg/dl (8.5-10.1); Creatinine Clr Calc Pharmacy 124.1 ml/min; Est GFR (African American) 117.6 ml/min; Est GFR (Non-African American) 101.5 ml/min; Magnesium 1.7 mg/dl (1.7-2.4); Potassium 4.5 mmol/L (3.5-5.1); Total Protein 5.3 gm/dl (6.0-8.3)
[2022-08-28] MEDS ORDERED: SPIRONOLACTONE 25 MG TAB PO SCH (09:00)
[2022-08-28] MEDS ORDERED: FUROSEMIDE 20 MG TAB PO SCH (09:00)
[2022-08-28 09:23] LABS: Basophils # (auto) 0.05 K/uL (0-0.2); Basophils % (auto) 0.6 %; Eosinophils # (auto) 0.56 K/uL (0-0.50); Eosinophils % (auto) 6.3 %; Hematocrit (blood only) 30.7 % (40.1-51.0); Hemoglobin 10.2 g/dl (14.0-18.0); Immature Granulocytes # (auto) 0.04 K/uL (0.00-0.02); Immature Granulocytes % (auto) 0.4 %; Lymphocytes # (auto) 1.19 K/uL (1.2-3.4); Lymphocytes % (auto) 13.4 %; Mean Corpuscular Hemoglobin 30.7 pg (25.0-34.0); Mean Corpuscular Hgb Conc 33.2 g/dL (32.0-36.0); Mean Corpuscular Volume 92.5 fL (80.0-100.0); Monocytes # (auto) 1.25 K/uL (0.24-0.82); Neutrophils # (auto) 5.82 K/uL (1.4-6.5); Neutrophils % (auto) 65.3 %; Platelet Count 158 K/uL (130-400); RDW Coefficient of Variation 14.8 % (11.5-14.5); RDW Standard Deviation 50.3 fL (36.4-46.3); Red Blood Count 3.32 M/uL (4.63-6.08); White Blood Count 8.91 K/ul (4.8-10.8)
--- NOTE | 2022-08-28 13:11 | Discharge Summary ---
Date of Service August 28, 2022 Admission HPI Per Admitting Provider Issa is a 51-year-old male inmate who presents for acute GI bleed and weakness. ER Review: EKG: Sinus tachycardia, QTC 462. No ST segment changes Leukocytosis of 11.77, hemoglobin 6.7 with MCV 104, no hemoglobin baseline available for review INR 1.8 VB.3 // Potassium: 6.2, sodium 140 Lactate 6.6 on admission, repeat Procalcitonin 0.72 Bio fire negative CTAchest: No pulmonary emboli, exam limited by respiratory motion. Small right, trace left pleural effusions. Emphysema. Small hiatal hernia,? Esophagitis. Hyperdense stomach contents, ingested material versus clot. Cirrhosis with upper abdominal ascites. CTA/P: Cirrhosis with evidence of portal hypertension including varices/ascites. Mild gastric wall thickening and mucosal enhancement. No bowel obstruction, jejunal wall thickening. Moderate right and trace left pleural effusions. Small hiatal hernia, distal esophageal wall thickening CXR: Bibasilar opacities right greater than left favoring pneumonia. Pulmonary vascular congestion with small right pleural effusion. No echocardiogram on file for review Pt hx Patient seen at bedside with jail guards present. Patient reports that about 1 week ago he had epigastric pain suspected possible hernia with no prior history of GERD, was recommended to use a binder. Had 2 episodes of dark black bowel movements which occurred approximately 1 week ago. Has used ibuprofen for general pain in the past. Denies history of ulcers/endoscopy in the past. No black/melenic bowel movements prior to 2 weeks ago. With EMR history of cirrhosis, patient reports he was unaware of this. Endorses a past history of IV drug use and meth use in remission for 2 years, reports that he has not been tested for hep C virus or HIV in the past and has not received treatment for either of these to his knowledge. Per chart mention of HCV 06/2022 without additional details given. No alcohol use in 15 years. Patient reports he became very short of breath which worsened in the last 2 days and is worsened by ambulation. Reconciliation shows had been prescribed azithromycin 5-day course. At time of assessment endorses slight shortness of breath worsens with exertion, denies any chest pressure/chest pain/syncope/presyncope. Has had epigastric pain intermittently in the last 2 weeks but is worse in the last 24 hours. 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 No PPI trials to patient's knowledge previous to this. Patient denies any history of blood thinner use, clotting/bleeding problems in the past. No history of liver/renal failure to patient's knowledge. He reports he has never been told he has COPD, has smoked since age 9 recently in remission approximately 6 months ago. Prior 0.5 pack/day use on average to quitting. Principal Diagnosis Acute GI bleed, esophageal varices Hep C cirrhosis Acute blood loss anemia Discharge Exam Constitutional WD/WN, vitals as above Eyes + anicteric sclerae Neck trachea midline, no thyromegaly Respiratory normal respiratory effort, lungs clear to auscultation Cardiovascular Rate/Rhythm: regular rate and regular rhythm Heart Sounds: no murmur Extremities: + edema (1+ pitting edema legs bilat,arms mild edema) Chest (Breasts) Chest: normal inspection of chest Gastrointestinal (Abdomen) Inspection/Auscultation: abdomen normal to inspection, + abdomen distended (mild) and normal bowel sounds Percussion/Palpation: abdomen soft; abdomen nontender and no guarding Musculoskeletal Extremities: no cyanosis and no clubbing Skin no rashes, warm and dry Neurologic moves all extremities and awake; no focal motor deficits Psychiatric A+Ox3, euthymic affect Discharge Data Allergies Allergy/AdvReac Type Severity Reaction Status Date / Time No Known Allergies Allergy Unverified 08/22/22 15:39 Consultations 08/22/22 14:54 ED Decision to Admit Stat 08/22/22 19:54 Consult Seat Coverer Routine Procedures Performed Operation Date: 08/22/22 16:20 Actual Procedures p Esophagogastroduodenoscopy(Not Applicable) - Bryan Hoffman MD Ordered Studies 08/22/22 13:02 CT abd pelvis IV con only Stat CT angio chest PE protocol Stat 08/23/22 10:19 US paracentesis abd w/image Routine 08/25/22 12:45 US abdomen ltd ascites Routine Hospital Course (1) Upper GI bleed: (1) Upper GI bleed: Plan: Presented with acute GI bleed with melena in the setting of hepatitis C cirrhosis-previously unknown diagnosis CT A/P - 1. Cirrhosis with manifestations of portal hypertension including varices and moderate ascites.2. Mild gastric wall thickening and prominent mucosal enhancement. This is nonspecific although may reflect gastritis. Hyperdense material within the distal stomach which likely reflects ingested contents however clot could appear similar.3. No bowel obstruction. Jejunal wall thickening. This is also nonspecific and could be due to to portal hypertension or hypoalbuminemia.4. Moderate right and trace left pleural effusions.5. Small hiatal hernia with distal esophageal wall thickening which may reflect esophagitis. Appreciate GI management-status post EGD-found multiple columns grade 2 varices in lower esophagus, erosion overlying grade 2 varix without active bleeding, large amount of clotted dark red blood in fundus, also with gastric varices and portal gastropathy. Presumably with bleeding from erosion at GE junction overlying the varix. S/p banding of varices No further melena in several days -Was given many days of octreotide and Protonix drips -treated with a 7-day course of ceftriaxone for prophylaxis -Status post total 3 units PRBCs and hemoglobin now remains stable at 10 x 3 days -GI recommends consideration for transfer to Center with IR/TIPS capability if he rebleeds -Now on Protonix 40 Mg p.o. twice daily -treated with Reglan 5 Mg IV every 12 hours but not needed on discharge -Follow-up with [facility] in 1 month and after transfers to rehab from jail, would need to find a technical associate/manager urgent care in whichever city he resides -continue low-sodium minced and moist diet -Follow CBC at the jail in 2-3 days (2) Acute blood loss anemia: Plan: As above Follow CBC in 2-3 days (3) Cirrhosis: Plan: History of cirrhosis -History of hepatitis C that has not been treated Patient reports he was not aware he had a history of this -With a history of IV drug use in remission for 2 years, past alcohol use in remission for more than 10 years -LFTs elevated but stable -INR elevated, cirrhotic coagulopathy; vitamin K 5 mg x 1 IV given in ER and INR has normalized Patient initially hypotensive with elevated lactate, suspect hypovolemic shock from acute blood loss -With diagnostic paracentesis performed here-no evidence of SBP -With distended abdomen, repeat abd U/S 08/25/22 with small ascites decreased from prior and no tap performed -Started on propranolol 10 Mg p.o. 3 times daily, Lasix 20 Mg p.o. once daily, spironolactone 50 Mg p.o. once daily -Needs GI follow-up after discharge -Low-sodium diet -Limit Tylenol use, avoid all NSAIDs--> STOPPED ibuprofen (4) Hyponatremia: Plan: Sodium mildly low at 133 and now improved to 135 with starting diuretics Follow BMP in 2-3 days at jail (5) Hepatitis C virus: Plan: With positive hepatitis C virus antibody here, RNA titer/quant pending Likely cause of current cirrhosis Follow-up with hepatology after discharge (6) Hyperkalemia: Plan: Present on admission, resolved with treatment with insulin and dextrose -Watch BMP with starting spironolactone (7) Anxiety: Plan: Patient on mirtazapine 15 mg nightly, paroxetine 20 mg (8) Past use of tobacco: Plan: Hx tobacco use, No diagnosis of COPD, Smoked 0.5 for at least 35 years, quit 6 months ago Scant wheezing on admission improved with methylpred + albuterol nebulizer in ER Patient denies using inhalers 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 Defer additional steroids in the setting of acute bleeding Follow-up PFTs as outpatient (9) History of intravenous drug abuse: Plan: In remission for 2 years per patient HIV negative HCV positive, quant pending at time of discharge (10) Esophageal varices: Plan: As noted above (11) Thrombocytopenia: Plan: Secondary to cirrhosis Mild Follow CBC (12) Pleural effusion: Plan: Small moderate pleural effusions on admission secondary to ascites and cirrhosis Not hypoxic and no dyspnea Starting diuretics which should help (2) Acute blood loss anemia: (3) Cirrhosis: (4) Hyponatremia: (5) Hepatitis C virus: (6) Hyperkalemia: (7) Anxiety: (8) Past use of tobacco: (9) History of intravenous drug abuse: (10) Esophageal varices: (11) Thrombocytopenia: (12) Pleural effusion: Total Time Total Time Spent Total Time Spent (In Minutes): 35 min Discharge Plan Discharge Items [facility] Disposition[facility] Reason For Visit: [facility]GIB ?VARICEAL VLEED Discharge Diagnosis: Upper GI bleed,acute blood loss anemia, Hepatitis C cirrhosis Esophageal varices Activity: As commented below Lifting: Gradually increase as tolerated Bathing: No limitations Exercise/Sports: Gradually increase as tolerated Non-emergency contact: Primary Care Provider and Baking [employer] Worker Call non-emergency contact if: you have any medication questions, your symptoms worsen and your pain is not controlled Follow-up/Referrals: Bryan Hoffman MD [Physician] - (Follow up within 1 month with the Baking Factory Worker. ) Stanislav Wilburn [Primary Care Provider] - (Follow up within 1-2 days with your doctor at the jail. ) Diet: Low Sodium (2gm) Diet Texture: Easy to Chew Diet Comment: Soft diet x 2 weeks Addtl Attending Provider Instructions: [facility], [id number] Hospitalist Progress Note (1) Upper GI bleed: Plan: Presented with acute GI bleed with melena in the setting of hepatitis C cirrhosis-previously unknown diagnosis CT A/P - 1. Cirrhosis with manifestations of portal hypertension including varices and moderate ascites.2. Mild gastric wall thickening and prominent mucosal enhancement. This is nonspecific although may reflect gastritis. H yperdense material within the distal stomach which likely reflects ingested contents however clot could appear similar.3. No bowel obstruction. Jejunal wall thickening. This is also nonspecific and could be due to to portal hypertension or hypoalbuminemia.4. Moderate right and trace left pleural effusions.5. Small hiatal hernia with distal esophageal wall thickening which may reflect esophagitis. Appreciate GI management-status post EGD-found multiple columns grade 2 varices in lower esophagus, erosion overlying grade 2 varix without active bleeding, large amount of clotted dark red blood in fundus, also with gastric varices and portal gastropathy. Presumably with bleeding from erosion at GE junction overlying the varix. S/p banding of varices No further melena in several days -Was given many days of octreotide and Protonix drips -treated with a 7-day course of ceftriaxone for prophylaxis -Status post total 3 units PRBCs and hemoglobin now remains stable at 10 x 3 days -GI recommends consideration for transfer to Center with IR/TIPS capability if he rebleeds -Now on Protonix 40 Mg p.o. twice daily -treated with Reglan 5 Mg IV every 12 hours but not needed on discharge -Follow-up with [facility] in 1 month and after transfers to rehab from jail, would need to find a technical associate/manager urgent care in whichever city he resides -continue low-sodium minced and moist diet -Follow CBC at the jail in 2-3 days (2) Acute blood loss anemia: Plan: As above Follow CBC in 2-3 days (3) Cirrhosis: Plan: History of cirrhosis -History of hepatitis C that has not been treated Patient reports he was not aware he had a history of this -With a history of IV drug use in remission for 2 years, past alcohol use in remission for more than 10 years -LFTs elevated but stable -INR elevated, cirrhotic coagulopathy; vitamin K 5 mg x 1 IV given in ER and INR has normalized Patient initially hypotensive with elevated lactate, suspect hypovolemic shock from acute blood loss -With diagnostic paracentesis performed here-no evidence of SBP -With distended abdomen, repeat abd U/S 08/25/22 with small ascites decreased from prior and no tap performed -Started on propranolol 10 Mg p.o. 3 times daily, Lasix 20 Mg p.o. once daily, spironolactone 50 Mg p.o. once daily -Needs GI follow-up after discharge -Low-sodium diet -Limit Tylenol use, avoid all NSAIDs--> STOPPED ibuprofen (4) Hyponatremia: Plan: Sodium mildly low at 133 and now improved to 135 with starting diuretics Likely due to cirrhosis and volume overload Follow BMP in 2-3 days at jail (5) Hepatitis C virus: Plan: With positive hepatitis C virus antibody here, RNA titer/quant pending Likely cause of current cirrhosis Follow-up with hepatology after discharge (6) Hyperkalemia: Plan: Present on admission, resolved with treatment with insulin and dextrose -Watch BMP with starting spironolactone (7) Anxiety: Plan: Patient on mirtazapine 15 mg nightly, paroxetine 20 mg (8) Past use of tobacco: Plan: Hx tobacco use, No diagnosis of COPD, Smoked 0.5 for at least 35 years, quit 6 months ago Scant wheezing on admission improved with methylpred + albuterol nebulizer in ER Patient denies using inhalers 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 Defer additional steroids in the setting of acute bleeding Follow-up PFTs as outpatient (9) History of intravenous drug abuse: Plan: In remission for 2 years per patient HIV negative HCV positive, quant pending at time of discharge (10) Esophageal varices: Plan: As noted above (11) Thrombocytopenia: Plan: Secondary to cirrhosis Mild Follow CBC (12) Pleural effusion: Plan: Small moderate pleural effusions on admission secondary to ascites and cirrhosis Not hypoxic and no dyspnea Starting diuretics which should help Pending Studies at Discharge: Yes Studies:: Hepatitis C RNA quant Stand-Alone Forms: My [facility] Skilled Items Patient informed of condition?: Yes Discharge Level of Care: Other Communicable Disease: Yes (Hepatitis C) Discharge Prognosis: Improving Lines: None Urinary Catheter: No Medications and DC Order Prescriptions: New propranolol 10 mg Tablet 10 mg PO TID Qty: 90 0RF spironolactone 50 mg tablet 50 mg PO QAM Qty: 30 0RF pantoprazole 40 mg Tablet,Delayed Release (Dr/Ec) 40 mg PO BID Qty: 60 0RF furosemide 20 mg Tablet 20 mg PO QAM Qty: 30 0RF fluticasone furoate-vilanterol [Breo Ellipta] 100-25 mcg/dose Blister With Device 1 ea inhalation DAILY Qty: 60 0RF Continued paroxetine HCl 20 mg Tablet 20 mg PO DAILY mirtazapine 15 mg Tablet 15 mg PO HS albuterol sulfate 90 mcg/actuation Hfa Aerosol Inhaler 1 puff INHALATION Q4H PRN (Reason: Wheezing) Discontinued azithromycin 250 mg Tablet 250 mg PO DAILY Rx Instructions: Until 08/25, 5 day z pack prescribed for SoB famotidine 20 mg Tablet 20 mg PO BID ibuprofen 600 mg Tablet 600 mg PO TID PRN (Reason: Pain) Discharge Orders: Discharge Order (Routine); Ordered 08/28/22 Ordered By: Rocio Aguilera Admission Data Admit Date/Time: 08/22/22 15:25 Attending Provider: Rocio Aguilera Admit Provider: Juan David Penn Primary Care Provider: Stanislav Wilburn Other Providers: Juan David Penn ; Samir Pang Coding Level of Care Code D/C DAY MANAGEMENT >30 MINS Diagnoses Upper GI bleed K92.2 Acute blood loss anemia D62 Cirrhosis K74.60 Hyponatremia E87.1 Hepatitis C virus B19.20 Hyperkalemia E87.5 Anxiety F41.9 Past use of tobacco Z87.891 History of intravenous drug abuse F19.11 Esophageal varices I85.00 Thrombocytopenia D69.6 Pleural effusion J90
[2022-08-28] MEDS: cefTRIAXone SODIUM 2,000 MG in DEXTROSE 5% 50 ML IV SCH (14:03)
[2022-08-30 08:15] LABS: Hepatitis C Vira RNA (Log) PCR 5.44 Log IU/mL (NOT DETECTED); Hepatitis C Viral RNA by PCR 275000 IU/mL (NOT DETECTED)
== END 2022-08-28 15:10 | DRG 432 ==
LOC: ED 10:32 → SUATTDRO 15:25 → OR 16:57 → 1E 16:58 → SUATTDRO 16:58 → 2E 08-26 05:42

== ENCOUNTER 2022-09-16 14:56 | Inpatient (IN) ==
--- NOTE | 2022-09-16 15:17 | Emergency Department Note ---
Impression & Plan Abdominal ascites, Pleural effusion, COPD (chronic obstructive pulmonary disease), Hypoxia ED Provider Note NAME: LATASHA [id number] STAFF AGE: 51 SEX: M : 1970 ARRIVES VIA: Ambulance INFORMANT: Patient, EMS ED PROVIDER(S): Ayaz Sellers DO CHIEF COMPLAINT: Abdominal distention HPI: The patient is a 51-year-old male who presented to the emergency department for an evaluation of lower extremity swelling and abdominal distention. The pat ient does have a history of end-stage cirrhosis. He had a history of IV drug abuse as well as alcoholism. He also has a history of hepatitis C. He was seen in our facility over the holiday because of an upper GI bleed from varices. The patient denies having any black or bloody bowel moods. He has been having worsening abdominal distention accompanied by shortness of breath. He is currently at the [facility] who presented to the emergency department because the symptoms. ROS: See above HPI for pertinent positives & negatives. A total of 10 systems reviewed and were otherwise negative. PAST MEDICAL HISTORY: See Below PAST SURGICAL HISTORY: See Below FAMILY HISTORY: See Below SOCIAL HISTORY: See Below HOME MEDICATIONS: See Below ALLERGIES: See Below VITALS: See Below PHYSICAL EXAMINATION: GENERAL: Patient is awake alert in no acute distress patient is resting comfortably and showing no signs of anxiety EYES: The conjunctivae are clear. The pupils are round and reactive. EARS, NOSE, MOUTH AND THROAT: The nose is without any evidence of any deformity. Mucous membranes are moist. Tongue is midline. NECK: The neck is nontender and supple. RESPIRATORY: Shallow respirations were noted. Diminished breath sounds are noted at both bases. CARDIOVASCULAR: Regular rate and rhythm noted there no murmurs rubs or gallops normal S1 normal S2. GASTROINTESTINAL: Abdomen is distended and diffusely tender. There is no guarding or rigidity. MUSCULOSKELETAL/EXTREMITIES: There is no evidence of gross deformity full range of motion is noted in the hips and shoulders. SKIN: Pedal edema was noted bilaterally. NEUROLOGIC: Patient is awake alert and oriented x3. MEDICAL DECISION MAKING: The patient is a 51-year-old male who presented to the emergency department from the [facility] for an evaluation of difficulty breathing. The patient's been noticing worsening difficulty breathing as well as abdominal distention. He has a history of cirrhosis. The patient was seen in our facility at the end of last year for a severe upper GI bleed. The patient appears to have difficulty breathing and a pleural effusion. He is hypoxic. Given his findings as well as his outpatient living situation I do not feel the patient is safe for outpatient follow-up at this time. I discussed his condition with the [facility]call [facility] hospitalist. The patient was also given IV albumin in the emergency department. He may benefit from paracentesis. Triage Nursing notes reviewed. Prior medical records reviewed Vital Signs: reviewed and remarkable for hypoxia and hypertension. Differential diagnosis: Etiologies such as appendicitis, diverticulitis, obstruction, inflammatory bowel disease, renal colic, PUD, biliary pathology, pancreatitis, mesenteric ischemia, aortic pathology, infections, genitourinary, UTI, perforated viscus, as well as others were entertained. ER treatment provided: See below Diagnostics interpreted by me: ECG: EKG was obtained in the emergency department. My interpretation is sinus tachycardia 107 bpm. There was no ectopy. Low voltage was noted throughout. Nonspecific lateral ST depressions were noted. This was compared to a tracing from August 22, 2022. No changes were noted. Cardiac Monitoring: An order was placed for continuous cardiac monitoring. The monitor shows a rate of 104 bpm with sinus tachycardia. Laboratory studies: As stated above and show below. Imaging studies: See below. Radiographic imaging was reviewed by myself Consultation(s): I discussed this case with Dr. Isid[facility]. Past Med/Surg History Medical History Acute on chronic blood loss anemia Anxiety Cirrhosis COPD (chronic obstructive pulmonary disease) Esophageal varices History of intravenous drug abuse Past use of tobacco Family History Other Family history non-contributory Social History Smoking Status: Former smoker Tobacco Type: Cigarettes Age Started Using Tobacco: 9; Age Quit Using Tobacco: 51; packs per day: 0.5; Hx Alcohol Use: No Hx Substance Use: No (UNABLE TO OBTAIN) Preferred Language: Lebanese Communication Ability: Unable Vp Required: No Beliefs That Will Affect Care: None Current Living Situation: Other Feels Safe at Home: Yes Assistive Devices: None Allergies Allergies Allergy/AdvReac Type Severity Reaction Status Date / Time No Known Allergies Allergy Unverified 09/16/22 19:16 Home Meds Home Medications Medication Instructions Recorded Confirmed ciclesonide 80 mcg/actuation 2 puff inhalation BID 09/16/22 09/16/22 aerosol inhaler (Alvesco) ferrous sulfate 325 mg (65 mg 325 mg PO BID 09/16/22 09/16/22 iron) tablet furosemide 40 mg tablet 40 mg PO DAILY 09/16/22 09/16/22 ipratropium 0.5 mg-albuterol 3 mg 3 ml inhalation BID 09/16/22 09/16/22 (2.5 mg base)/3 mL nebulization soln mirtazapine 30 mg tablet 30 mg PO HS 09/16/22 09/16/22 sertraline 50 mg tablet 50 mg PO DAILY 09/16/22 09/16/22 spironolactone 100 mg tablet 100 mg PO DAILY 09/16/22 09/16/22 Results & Data (ED) Vital Signs Vital Signs - 24 hr 09/16/22 14:30 09/16/22 15:33 09/16/22 15:09 Temperature 37 C Temperature Source Oral Pulse Rate 109 H Pulse Rate [Apical] Pulse Rate [Left Radial] Pulse Rhythm Regular Pulse Rhythm [Left Radial] Pulse Strength Normal Pulse Strength [Left Radial] Respiratory Rate 16 18 Respiratory Effort / Characteristics Non-Labored Non-Labored Non-Labored Respiratory Depth Normal Normal Normal Respiratory Pattern Regular Regular Blood Pressure 129/98 Blood Pressure [Left Arm] 143/103 H Blood Pressure Mean 108 Blood Pressure Mean [Left Arm] 116 Blood Pressure Position [Left Arm] Pulse Oximetry 86 L 94 Oxygen Delivery Method Room Air Nasal Cannula Oxygen Flow Rate 3 Sepsis Recent Fever Within 48 Hours No Sepsis New/Unexplained Change in Mental Status No Sepsis Action Taken by Nursing No Action Required 09/16/22 15:09 09/16/22 15:09 09/16/22 17:00 Temperature Temperature Source Pulse Rate Pulse Rate [Apical] Pulse Rate [Left Radial] 110 H Pulse Rhythm Pulse Rhythm [Left Radial] Regular Pulse Strength Pulse Strength [Left Radial] Normal Respiratory Rate 18 Respiratory Effort / Characteristics Non-Labored Respiratory Depth Normal Respiratory Pattern Blood Pressure Blood Pressure [Left Arm] 139/108 H Blood Pressure Mean Blood Pressure Mean [Left Arm] 118 Blood Pressure Position [Left Arm] Pulse Oximetry 94 95 Oxygen Delivery Method Nasal Cannula Room Air Nasal Cannula Oxygen Flow Rate 3 3 Sepsis Recent Fever Within 48 Hours Sepsis New/Unexplained Change in Mental Status Sepsis Action Taken by Nursing 09/16/22 20:12 Temperature Temperature Source Pulse Rate Pulse Rate [Apical] 104 H Pulse Rate [Left Radial] Pulse Rhythm Pulse Rhythm [Left Radial] Pulse Strength Pulse Strength [Left Radial] Respiratory Rate 20 Respiratory Effort / Characteristics Non-Labored Spontaneous Respiratory Depth Normal Respiratory Pattern Regular Blood Pressure Blood Pressure [Left Arm] 133/101 H Blood Pressure Mean Blood Pressure Mean [Left Arm] 111 Blood Pressure Position [Left Arm] Semi-fowlers Pulse Oximetry 93 Oxygen Delivery Method Nasal Cannula Oxygen Flow Rate 3 Sepsis Recent Fever Within 48 Hours Sepsis New/Unexplained Change in Mental Status Sepsis Action Taken by Intermediate Medications Current Medication List: was personally reviewed by me Laboratory Data Attestation: I reviewed the patient's lab results. 09/16/22 16:26 09/16/22 16:26 Lab Results 09/16/22 09/16/22 09/16/22 Range/Units 15:46 16:26 16:26 WBC Cancelled RBC Cancelled Hgb Cancelled Hct Cancelled MCV Cancelled MCH Cancelled MCHC Cancelled RDW Std Deviation Cancelled RDW Coeff of Farrah Cancelled Plt Count Cancelled MPV Cancelled Immature Gran % (Auto) Cancelled Neut % (Auto) Cancelled Lymph % (Auto) Cancelled [place] % (Auto) Cancelled Eos % (Auto) Cancelled Baso % (Auto) Cancelled Neut # (Auto) Cancelled Lymph # (Auto) Cancelled [place] # (Auto) Cancelled Eos # (Auto) Cancelled Baso # (Auto) Cancelled Immature Gran # (Auto) Cancelled Absolute Nucleated RBC Cancelled Nucleated RBC % (auto) Cancelled Neutrophils % (Manual) Cancelled Band Neutrophils % Cancelled Lymphocytes % (Manual) Cancelled Prolymphocyte % Cancelled Reactive Lymphs % (Man) Cancelled Monocytes % (Manual) Cancelled Eosinophils % (Manual) Cancelled Basophils % (Manual) Cancelled Metamyelocytes % (Man) Cancelled Myelocytes % (Man) Cancelled Promyelocytes % (Man) Cancelled Blast Cells % (Manual) Cancelled Plasma Cell % (Manual) Cancelled Other Cells % Cancelled Nucleated RBC % Cancelled Neutrophils # (Manual) Cancelled Band Neutrophils # Cancelled Total Absolute Neuts Cancelled Lymphocytes # (Manual) Cancelled Prolymphocyte # Cancelled Reactive Lymphs # Cancelled Total Abs Lymphocytes Cancelled Monocytes # (Manual) Cancelled Eosinophils # (Manual) Cancelled Basophils # (Manual) Cancelled Metamyelocytes # (Man) Cancelled Myelocytes # (Manual) Cancelled Promyelocytes # (Man) Cancelled Blast Cells # (Man) Cancelled Plasma Cell # (Manual) Cancelled Other Cells # Cancelled Nucleated RBCs # (Man) Cancelled Hypersegmented Neuts Cancelled Hyposegmented Neuts Cancelled Hypogranular Neuts Cancelled Large Granular Lymphs Cancelled # Lrg Granular Lymphs Cancelled Hairy Cells Cancelled Smudge Cells Cancelled Toxic Granulation Cancelled Toxic Vacuolation Cancelled Dohle Bodies Cancelled Karo Rods Cancelled Platelet Estimate Cancelled Hypogranular Platelets Cancelled Clumped Platelets Cancelled Giant Platelets Cancelled Platelet Satelliting Cancelled RBC Morphology Cancelled Polychromasia Cancelled Hypochromasia Cancelled Poikilocytosis Cancelled Basophilic Stippling Cancelled Anisocytosis Cancelled Microcytosis Cancelled Macrocytosis Cancelled Spherocytes Cancelled Pappenheimer Bodies Cancelled Sickle Cells Cancelled Target Cells Cancelled Tear Drop Cells Cancelled Ovalocytes Cancelled Stomatocytes Cancelled [place] Bodies Cancelled Echinocytes Cancelled Acanthocytes (Spur) Cancelled Rouleaux Cancelled RBC Agglutinates Cancelled Schistocytes Cancelled Sezary Cell Cancelled PT Cancelled INR Cancelled APTT Cancelled PTT Ratio Cancelled VBG pH VBG pCO2 VBG pO2 VBG HCO3 VBG O2 Saturation VBG Base Excess Barometric Pressure Sodium (136-145) mmol/L Potassium (3.5-5.1) mmol/L Chloride (98-107) mmol/L Carbon Dioxide (21-32) mmol/L Anion Gap (3-11) BUN (6-23) mg/dl Creatinine (0.6-1.4) mg/dl Est Cr Clr Drug Dosing ml/min Est GFR ( Amer) ml/min Est GFR (Non-Af Amer) ml/min BUN/Creatinine Ratio (10-20) Glucose (70-99(Fasting)) mg/dl Calcium (8.5-10.1) mg/dl Total Bilirubin (0.2-1.0) mg/dl AST (13-39) U/L ALT (7-52) U/L Alkaline Phosphatase (34-104) U/L Troponin I High Sens (0-20) pg/ml Total Protein (6.0-8.3) gm/dl Albumin (3.4-5.0) gm/dl Globulin (2.5-4.0) gm/dl Albumin/Globulin Ratio (0.9-2) Lipase (11-82) U/L SARS-CoV-2, RNA, NAAT NEGATIVE (NEGATIVE) Blood Parasites ID Cancelled Blood Type Antibody Screen 09/16/22 09/16/22 09/16/22 Range/Units 16:26 16:26 16:31 WBC RBC Hgb Hct MCV MCH MCHC RDW Std Deviation RDW Coeff of Farrah Plt Count MPV Immature Gran % (Auto) Neut % (Auto) Lymph % (Auto) [place] % (Auto) Eos % (Auto) Baso % (Auto) Neut # (Auto) Lymph # (Auto) [place] # (Auto) Eos # (Auto) Baso # (Auto) Immature Gran # (Auto) Absolute Nucleated RBC Nucleated RBC % (auto) Neutrophils % (Manual) Band Neutrophils % Lymphocytes % (Manual) Prolymphocyte % Reactive Lymphs % (Man) Monocytes % (Manual) Eosinophils % (Manual) Basophils % (Manual) Metamyelocytes % (Man) Myelocytes % (Man) Promyelocytes % (Man) Blast Cells % (Manual) Plasma Cell % (Manual) Other Cells % Nucleated RBC % Neutrophils # (Manual) Band Neutrophils # Total Absolute Neuts Lymphocytes # (Manual) Prolymphocyte # Reactive Lymphs # Total Abs Lymphocytes Monocytes # (Manual) Eosinophils # (Manual) Basophils # (Manual) Metamyelocytes # (Man) Myelocytes # (Manual) Promyelocytes # (Man) Blast Cells # (Man) Plasma Cell # (Manual) Other Cells # Nucleated RBCs # (Man) Hypersegmented Neuts Hyposegmented Neuts Hypogranular Neuts Large Granular Lymphs # Lrg Granular Lymphs Hairy Cells Smudge Cells Toxic Granulation Toxic Vacuolation Dohle Bodies Karo Rods Platelet Estimate Hypogranular Platelets Clumped Platelets Giant Platelets Platelet Satelliting RBC Morphology Polychromasia Hypochromasia Poikilocytosis Basophilic Stippling Anisocytosis Microcytosis Macrocytosis Spherocytes Pappenheimer Bodies Sickle Cells Target Cells Tear Drop Cells Ovalocytes Stomatocytes [place] Bodies Echinocytes Acanthocytes (Spur) Rouleaux RBC Agglutinates Schistocytes Sezary Cell PT INR APTT PTT Ratio VBG pH Cancelled VBG pCO2 Cancelled VBG pO2 Cancelled VBG HCO3 Cancelled VBG O2 Saturation Cancelled VBG Base Excess Cancelled Barometric Pressure Cancelled Sodium 135 L (136-145) mmol/L Potassium 5.3 H (3.5-5.1) mmol/L Chloride 106 (98-107) mmol/L Carbon Dioxide 25 (21-32) mmol/L Anion Gap 4 (3-11) BUN 35 H (6-23) mg/dl Creatinine 0.64 (0.6-1.4) mg/dl Est Cr Clr Drug Dosing 158.7 ml/min Est GFR ( Amer) 129.6 ml/min Est GFR (Non-Af Amer) 111.8 ml/min BUN/Creatinine Ratio 54.7 H (10-20) Glucose 111 H (70-99(Fasting)) mg/dl Calcium 7.8 L (8.5-10.1) mg/dl Total Bilirubin 1.6 H (0.2-1.0) mg/dl AST 246 H (13-39) U/L ALT 180 H (7-52) U/L Alkaline Phosphatase 113 H (34-104) U/L Troponin I High Sens 11.1 (0-20) pg/ml Total Protein 6.0 (6.0-8.3) gm/dl Albumin 2.3 L (3.4-5.0) gm/dl Globulin 3.7 (2.5-4.0) gm/dl Albumin/Globulin Ratio 0.6 L (0.9-2) Lipase 52 (11-82) U/L SARS-CoV-2, RNA, NAAT (NEGATIVE) Blood Parasites ID Blood Type Cancelled Antibody Screen Cancelled 09/16/22 09/16/22 09/16/22 Range/Units 17:32 17:32 17:32 WBC Cancelled RBC Cancelled Hgb Cancelled Hct Cancelled MCV Cancelled MCH Cancelled MCHC Cancelled RDW Std Deviation Cancelled RDW Coeff of Farrah Cancelled Plt Count Cancelled MPV Cancelled Immature Gran % (Auto) Cancelled Neut % (Auto) Cancelled Lymph % (Auto) Cancelled [place] % (Auto) Cancelled Eos % (Auto) Cancelled Baso % (Auto) Cancelled Neut # (Auto) Cancelled Lymph # (Auto) Cancelled [place] # (Auto) Cancelled Eos # (Auto) Cancelled Baso # (Auto) Cancelled Immature Gran # (Auto) Cancelled Absolute Nucleated RBC Cancelled Nucleated RBC % (auto) Cancelled Neutrophils % (Manual) Cancelled Band Neutrophils % Cancelled Lymphocytes % (Manual) Cancelled Prolymphocyte % Cancelled Reactive Lymphs % (Man) Cancelled Monocytes % (Manual) Cancelled Eosinophils % (Manual) Cancelled Basophils % (Manual) Cancelled Metamyelocytes % (Man) Cancelled Myelocytes % (Man) Cancelled Promyelocytes % (Man) Cancelled Blast Cells % (Manual) Cancelled Plasma Cell % (Manual) Cancelled Other Cells % Cancelled Nucleated RBC % Cancelled Neutrophils # (Manual) Cancelled Band Neutrophils # Cancelled Total Absolute Neuts Cancelled Lymphocytes # (Manual) Cancelled Prolymphocyte # Cancelled Reactive Lymphs # Cancelled Total Abs Lymphocytes Cancelled Monocytes # (Manual) Cancelled Eosinophils # (Manual) Cancelled Basophils # (Manual) Cancelled Metamyelocytes # (Man) Cancelled Myelocytes # (Manual) Cancelled Promyelocytes # (Man) Cancelled Blast Cells # (Man) Cancelled Plasma Cell # (Manual) Cancelled Other Cells # Cancelled Nucleated RBCs # (Man) Cancelled Hypersegmented Neuts Cancelled Hyposegmented Neuts Cancelled Hypogranular Neuts Cancelled Large Granular Lymphs Cancelled # Lrg Granular Lymphs Cancelled Hairy Cells Cancelled Smudge Cells Cancelled Toxic Granulation Cancelled Toxic Vacuolation Cancelled Dohle Bodies Cancelled Karo Rods Cancelled Platelet Estimate Cancelled Hypogranular Platelets Cancelled Clumped Platelets Cancelled Giant Platelets Cancelled Platelet Satelliting Cancelled RBC Morphology Cancelled Polychromasia Cancelled Hypochromasia Cancelled Poikilocytosis Cancelled Basophilic Stippling Cancelled Anisocytosis Cancelled Microcytosis Cancelled Macrocytosis Cancelled Spherocytes Cancelled Pappenheimer Bodies Cancelled Sickle Cells Cancelled Target Cells Cancelled Tear Drop Cells Cancelled Ovalocytes Cancelled Stomatocytes Cancelled [place] Bodies Cancelled Echinocytes Cancelled Acanthocytes (Spur) Cancelled Rouleaux Cancelled RBC Agglutinates Cancelled Schistocytes Cancelled Sezary Cell Cancelled PT INR APTT PTT Ratio VBG pH Cancelled VBG pCO2 Cancelled VBG pO2 Cancelled VBG HCO3 Cancelled VBG O2 Saturation Cancelled VBG Base Excess Cancelled Barometric Pressure Cancelled Sodium (136-145) mmol/L Potassium (3.5-5.1) mmol/L Chloride (98-107) mmol/L Carbon Dioxide (21-32) mmol/L Anion Gap (3-11) BUN (6-23) mg/dl Creatinine (0.6-1.4) mg/dl Est Cr Clr Drug Dosing ml/min Est GFR ( Amer) ml/min Est GFR (Non-Af Amer) ml/min BUN/Creatinine Ratio (10-20) Glucose (70-99(Fasting)) mg/dl Calcium (8.5-10.1) mg/dl Total Bilirubin (0.2-1.0) mg/dl AST (13-39) U/L ALT (7-52) U/L Alkaline Phosphatase (34-104) U/L Troponin I High Sens (0-20) pg/ml Total Protein (6.0-8.3) gm/dl Albumin (3.4-5.0) gm/dl Globulin (2.5-4.0) gm/dl Albumin/Globulin Ratio (0.9-2) Lipase (11-82) U/L SARS-CoV-2, RNA, NAAT (NEGATIVE) Blood Parasites ID Cancelled Blood Type A Positive Antibody Screen NEGATIVE 09/16/22 09/16/22 09/16/22 Range/Units 17:32 18:51 18:51 WBC 13.73 H RBC 2.84 L Hgb 8.1 L Hct 24.7 L MCV 87.0 MCH 28.5 MCHC 32.8 RDW Std Deviation 50.3 H RDW Coeff of Farrah 16.0 H Plt Count 167 MPV 11.6 Immature Gran % (Auto) 0.6 Neut % (Auto) 78.2 Lymph % (Auto) 12.5 [place] % (Auto) 8.4 Eos % (Auto) 0.2 Baso % (Auto) 0.1 Neut # (Auto) 10.75 H Lymph # (Auto) 1.71 [place] # (Auto) 1.15 H Eos # (Auto) 0.03 Baso # (Auto) 0.01 Immature Gran # (Auto) 0.08 H Absolute Nucleated RBC Nucleated RBC % (auto) Neutrophils % (Manual) Band Neutrophils % Lymphocytes % (Manual) Prolymphocyte % Reactive Lymphs % (Man) Monocytes % (Manual) Eosinophils % (Manual) Basophils % (Manual) Metamyelocytes % (Man) Myelocytes % (Man) Promyelocytes % (Man) Blast Cells % (Manual) Plasma Cell % (Manual) Other Cells % Nucleated RBC % Neutrophils # (Manual) Band Neutrophils # Total Absolute Neuts Lymphocytes # (Manual) Prolymphocyte # Reactive Lymphs # Total Abs Lymphocytes Monocytes # (Manual) Eosinophils # (Manual) Basophils # (Manual) Metamyelocytes # (Man) Myelocytes # (Manual) Promyelocytes # (Man) Blast Cells # (Man) Plasma Cell # (Manual) Other Cells # Nucleated RBCs # (Man) Hypersegmented Neuts Hyposegmented Neuts Hypogranular Neuts Large Granular Lymphs # Lrg Granular Lymphs Hairy Cells Smudge Cells Toxic Granulation Toxic Vacuolation Dohle Bodies Karo Rods Platelet Estimate Hypogranular Platelets Clumped Platelets Giant Platelets Platelet Satelliting RBC Morphology Polychromasia Hypochromasia Poikilocytosis Basophilic Stippling Anisocytosis Microcytosis Macrocytosis Spherocytes Pappenheimer Bodies Sickle Cells Target Cells Tear Drop Cells Ovalocytes Stomatocytes [place] Bodies Echinocytes Acanthocytes (Spur) Rouleaux RBC Agglutinates Schistocytes Sezary Cell PT Cancelled 16.6 H INR Cancelled 1.6 H APTT Cancelled 28.2 PTT Ratio Cancelled 1.0 VBG pH VBG pCO2 VBG pO2 VBG HCO3 VBG O2 Saturation VBG Base Excess Barometric Pressure Sodium (136-145) mmol/L Potassium (3.5-5.1) mmol/L Chloride (98-107) mmol/L Carbon Dioxide (21-32) mmol/L Anion Gap (3-11) BUN (6-23) mg/dl Creatinine (0.6-1.4) mg/dl Est Cr Clr Drug Dosing ml/min Est GFR ( Amer) ml/min Est GFR (Non-Af Amer) ml/min BUN/Creatinine Ratio (10-20) Glucose (70-99(Fasting)) mg/dl Calcium (8.5-10.1) mg/dl Total Bilirubin (0.2-1.0) mg/dl AST (13-39) U/L ALT (7-52) U/L Alkaline Phosphatase (34-104) U/L Troponin I High Sens (0-20) pg/ml Total Protein (6.0-8.3) gm/dl Albumin (3.4-5.0) gm/dl Globulin (2.5-4.0) gm/dl Albumin/Globulin Ratio (0.9-2) Lipase (11-82) U/L SARS-CoV-2, RNA, NAAT (NEGATIVE) Blood Parasites ID Blood Type Antibody Screen Administered Medications Discontinued Medications Albumin Human (Albumin 25% 100 Ml) 25 gm in 100 mls @ 50 mls/hr IV Q2H PASTORA Stop: 09/16/22 21:44 Last Infusion: 09/16/22 21:47 Dose: 0 mls/hr Documented By: Admin: 09/16/22 20:08 Dose: 50 mls/hr Documented By: Infusion: 09/16/22 20:08 Dose: 50 mls/hr Documented By: Admin: 09/16/22 18:28 Dose: 50 mls/hr Documented By: BELINDA Imaging Data Radiologist's Impression: Chest X-Ray 09/16/22 15:09 XR chest 1V portable CLINICAL HISTORY: sob TECHNIQUE: Single frontal radiograph of the chest was obtained. Comparison: Comparison is made to chest radiograph 08/22/2022 FINDINGS: Anterior cervical fixation hardware is seen. The cardiomediastinal silhouette is normal. Airspace opacity is in the right lower lung. There is a moderate right pleural effusion, increased from prior exam. IMPRESSION: Moderate right pleural effusion. Right lung base airspace opacity likely reflects layering effusion with associated atelectasis. Superimposed pneumonia cannot be entirely excluded. ACT 112: Negative or not required by law. Electronically signed by: Jaspal Victoria M.D. 09/16/2022 4:03 PM KUB X-Ray 09/16/22 15:09 KUB HISTORY: Fluid retention. Shortness of breath. COMPARISON: None. FINDINGS: The bowel gas pattern is unremarkable. There are no dilated loops of small bowel to suggest an obstruction. No renal calculi. No ureteral calculi. No pneumoperitoneum or pneumatosis. Centralization of the bowel may represent underlying ascites. IMPRESSION: 1. No evidence for bowel obstruction. 2. Centralization of bowel favors underlying ascites. ACT 112: Negative or not required by law. Electronically signed by: Ryan Olson M.D. 09/16/2022 4:08 PM Discharge Plan Visit Data Chief Complaint: Swelling/Edema to Extremity ED Provider: Ayaz Sellers Discharge Problem: Abdominal ascites, Pleural effusion, COPD (chronic obstructive pulmonary disease), Hypoxia Patient Disposition: Being Evaluated by Hospitalist Forms Stand Alone Forms: My [facility] Prescriptions Prescriptions: No Action spironolactone 100 mg Tablet 100 mg PO DAILY mirtazapine 30 mg Tablet 30 mg PO HS sertraline 50 mg Tablet 50 mg PO DAILY ferrous sulfate 325 mg (65 mg iron) Tablet 325 mg PO BID Alvesco 80 mcg/actuation Hfa Aerosol Inhaler 2 puff INHALATION BID furosemide 40 mg Tablet 40 mg PO DAILY ipratropium-albuterol 0.5 mg-3 mg(2.5 mg base)/3 mL Solution For Nebulization 3 ml INHALATION BID Rx Instructions: start 09/03/22 stop 09/18/22 Referrals Referrals: Stanislav Wilburn [Primary Care Provider] -
--- NOTE | 2022-09-16 16:05 | XRay Report ---
XR chest 1V portable CLINICAL HISTORY: sob TECHNIQUE: Single frontal radiograph of the chest was obtained. Comparison: Comparison is made to chest radiograph 08/22/2022 FINDINGS: Anterior cervical fixation hardware is seen. The cardiomediastinal silhouette is normal. Airspace opa city is in the right lower lung. There is a moderate right pleural effusion, increased from prior exa m. IMPRESSION: Moderate right pleural effusion. Right lung base airspace opacity likely reflects layering effusion w ith associated atelectasis. Superimposed pneumonia cannot be entirely excluded. ACT 112: Negative or not required by law. Electronically signed by: Jaspal Victoria M.D. 09/16/2022 4:03 PM
--- NOTE | 2022-09-16 16:09 | XRay Report ---
KUB HISTORY: Fluid retention. Shortness of breath. COMPARISON: None. FINDINGS: The bowel gas pattern is unremarkable. There are no dilated loops of small bowel to suggest an obstruction. No renal calculi. No ureteral calculi. No pneumoperitoneum or pneumatosis. Centrali zation of the bowel may represent underlying ascites. IMPRESSION: 1. No evidence for bowel obstruction. 2. Centralization of bowel favors underlying ascites. ACT 112: Negative or not required by law. Electronically signed by: Ryan Olson M.D. 09/16/2022 4:08 PM
[2022-09-16 17:17] LABS: Albumin Globulin Ratio 0.6 (0.9-2); Albumin Level 2.3 gm/dl (3.4-5.0); BUN Creatinine Ratio 54.7 (10-20); Bilirubin,Total 1.6 mg/dl (0.2-1.0); Calcium 7.8 mg/dl (8.5-10.1); Creatinine Clr Calc Pharmacy 158.7 ml/min; Est GFR (African American) 129.6 ml/min; Est GFR (Non-African American) 111.8 ml/min; Globulin 3.7 gm/dl (2.5-4.0); Potassium 5.3 mmol/L (3.5-5.1)
[2022-09-16 17:18] LABS: Troponin I High Sensitivity 11.1 pg/ml (0-20)
[2022-09-16] MEDS: ALBUMIN 25% 100 mL 25 GM/100 ML VIAL IV SCH ×2 (18:28→20:08)
[2022-09-16 19:01] LABS: Basophils # (auto) 0.01 K/uL (0-0.2); Basophils % (auto) 0.1 %; Eosinophils # (auto) 0.03 K/uL (0-0.50); Eosinophils % (auto) 0.2 %; Hematocrit (blood only) 24.7 % (40.1-51.0); Hemoglobin 8.1 g/dl (14.0-18.0); Immature Granulocytes # (auto) 0.08 K/uL (0.00-0.02); Immature Granulocytes % (auto) 0.6 %; Lymphocytes # (auto) 1.71 K/uL (1.2-3.4); Lymphocytes % (auto) 12.5 %; Mean Corpuscular Hemoglobin 28.5 pg (25.0-34.0); Mean Corpuscular Hgb Conc 32.8 g/dL (32.0-36.0); Mean Platelet Volume 11.6 fL (9.4-12.4); Monocytes # (auto) 1.15 K/uL (0.24-0.82); Monocytes % (auto) 8.4 %; Neutrophils # (auto) 10.75 K/uL (1.4-6.5); Neutrophils % (auto) 78.2 %; Platelet Count 167 K/uL (130-400); RDW Standard Deviation 50.3 fL (36.4-46.3); Red Blood Count 2.84 M/uL (4.63-6.08); White Blood Count 13.73 K/ul (4.8-10.8)
[2022-09-16 19:14] LABS: INR 1.6 (0.9-1.1); Partial Thromboplastin Time 28.2 Seconds (21.0-31.0); Prothrombin Time 16.6 Seconds (9.0-12.0)
--- NOTE | 2022-09-16 20:42 | History & Physical Report ---
Date of Service September 16, 2022 Assessment & Plan (1) Ascites: Plan: 51-year-old man with history of hepatitis C, cirrhosis, COPD, anemia 2/2 variceal bleeding who presents today with abdominal swelling and lower extremity edema and admitted for further management of presumed pleural effusion and ascites. Abdominal distention/pedal edema -History of cirrhosis. Significant pedal edema bilaterally, diffuse abdominal distention. -Elevated LFTs, transaminitis on labs. -CXR findings suggestive of of bilateral pulmonary edema R >L. -Deferred initiation of antibiotics at this time despite CXR findings, as this appears to be due to ascites -Now s/p IV albumin x2 bags * [facility] * IV Lasix 20 mg x 1 dose. Restart home Lasix 40 mg p.o. daily in a.m. * Hold spironolactone, given elevated potassium on admission * US limited for paracentesis ordered. Result pending. * A.m. CMP, CBC labs pending Hyperkalemia -K+ 5.3 on admission. -Patient takes spironolactone and Lasix. -Held spironolactone, gave additional Lasix IV 20 mg on admission. * Continue Lasix 40 mg p.o. daily * Trend daily labs COPD -Managed on ipratropium albuterol inhaler twice daily and ciclesonide inhaler twice daily * DuoNeb inhaler twice daily * Arnuity Ellipta 100 mcg inhaler Anxiety -Managed on mirtazapine 30 mg p.o. nightly, sertraline 50 mg p.o. daily * Sertraline 50 mg p.o. daily * Mirtazapine 30 mg p.o. nightly Cirrhosis -History of hep C. Managing as above Anemia -Hemoglobin 8.1 on admission. * Continue ferrous sulfate 325 mg p.o. twice daily * Trend CBC daily * With cell anticoagulation owing to diminished liver function Code: Full code Dispo: Med-Surg telemetry FEN/GI: NPO DVT Prophylaxis: None PT/OT: No Consults: None (2) Anemia: (3) COPD (chronic obstructive pulmonary disease): (4) Anxiety: (5) Hyperkalemia: History of Present Illness Primary Care Provider: [facility] 51-year-old man with a history of end-stage cirrhosis, hepatitis C, and COPD who presents to the emergency room with a complaint of abdominal and lower extremity swelling. Patient was recently admitted x7 days on 08/22/2022 for acute GI bleed with esophageal varices. He also shortness of breath with worsening abdominal distention. In the ED, vitals were notable for tachycardia to the high 100s and hypoxia with 86% saturation on room air. Labs were notable for WBC of 13.73, hemoglobin of 8.1 (down from apparent baseline of 10-11, from last admission), elevated PT and INR of 16.6 and 1.6 respectively. Elevated K+ of 5.3. BUN of 35. Labs also revealed hyperbilirubinemia of 1.6, transaminitis (AST 246, ALT 180), alk phos 113, and albumin 2.3. CXR showed right lung base airspace opacity suggestive of a moderate right pleural effusion (vs pneumonia), increased from previous x-ray 3 weeks ago. KUB showed "centralization" suggestive of underlying ascites. He was placed on 3 L of oxygen via nasal cannula, and given IV albumin x2 bags. On admission, patient states that abdominal distention and leg swelling started during his last hospital admission on 08/22/2022. He received daily Lasix 40 mg p.o. at that time but reports that he continued when he [facility]. He became concerned enough to seek medical attention after developing shortness of breath which he reports started today. He reports that the shortness of breath is worsened by exertion. He denies paroxysmal nocturnal dyspnea, cough, abdominal pain, or increased mucus production. Allergies Allergy/AdvReac Type Severity Reaction Status Date / Time No Known Allergies Allergy Unverified 09/16/22 19:16 Home Medications Medication Instructions Recorded Confirmed Type ciclesonide 80 mcg/actuation 2 puff inhalation BID 09/16/22 09/16/22 History aerosol inhaler ([facility]) ferrous sulfate 325 mg (65 mg 325 mg PO BID 09/16/22 09/16/22 History iron) tablet furosemide 40 mg tablet 40 mg PO DAILY 09/16/22 09/16/22 History ipratropium 0.5 mg-albuterol 3 mg 3 ml inhalation BID 09/16/22 09/16/22 History (2.5 mg base)/3 mL nebulization soln mirtazapine 30 mg tablet 30 mg PO HS 09/16/22 09/16/22 History sertraline 50 mg tablet 50 mg PO DAILY 09/16/22 09/16/22 History spironolactone 100 mg tablet 100 mg PO DAILY 09/16/22 09/16/22 History Past Med/Surg History Medical History Acute on chronic blood loss anemia Anxiety Cirrhosis COPD (chronic obstructive pulmonary disease) Esophageal varices History of intravenous drug abuse Past use of tobacco Family History Other Family history non-contributory Social History Smoking Status: Former smoker Tobacco Type: Cigarettes Age Started Using Tobacco: 9; Age Quit Using Tobacco: 51; packs per day: 0.5; Do You Dip or Chew Tobacco: No; Hx Alcohol Use: No Hx Substance Use: Yes Non-Prescribed Medications: IV Drugs Last Used Substance: Unknown Last Used Substance Other:: 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 Normal conjunctiva, anicteric sclera. Oropharynx normal. Respiratory: Normal respiratory effort. Diminished lung sounds at the bases bilaterally. No crackles or wheeze heard in middle or upper lung junior. Cardiovascular: RRR without murmurs, gallops, or rubs. 3+ bilateral pitting edema up to the knees. GI: Soft, distended abdomen with normal bowel sounds heard on auscultation. Nontender to palpation. Neuro: Alert and oriented x3. Results & Data Results & Data ([facility]) Vital Signs (Past 12 Hours) Vital Signs Temp Pulse Pulse Pulse Resp BP BP 09/16/22 20:12 104 H 20 133/101 H 09/16/22 17:00 110 H 18 139/108 H 09/16/22 15:09 09/16/22 15:09 09/16/22 15:33 18 143/103 H 09/16/22 14:30 37 C 109 H 16 129/98 Pulse Ox O2 Del Method O2 Flow Rate 09/16/22 20:12 93 Nasal Cannula 3 09/16/22 17:00 95 Nasal Cannula 3 09/16/22 15:09 Room Air 09/16/22 15:09 94 Nasal Cannula 3 09/16/22 15:33 94 Nasal Cannula 3 09/16/22 14:30 86 L Room Air Supervising Physician Co-Signing Physician Notes Attending addendum: I have physically seen this patient, have supervised the medical residents activities, and agree with the H&P unless as otherwise noted. Assessment and Plan: Ascites/anasarca/pleural effusions/hepatitis C/cirrhosis/anemia with history of variceal bleeding- [facility] Given albumin 25 g IV x2 Lasix 20 mg IV x1 this evening Tomorrow restart home Lasix 40 mg p.o. daily every morning Hold spironolactone due to elevated potassium Order ultrasound of abdomen pelvis to assess for volume ascites and possible need for paracentesis Mild hyperkalemia- Potassium 5.3 on admission Hold spironolactone Given additional Lasix 20 mg IV tonight Recheck laboratories in a.m. COPD- Duonebs every 4 hours while awake and every 2 hours when necessary. And annuity Ellipta as noted Remaining orders and notations as noted Resident Activity Tracking Resident Involvement: Resident Care Provided Care Provided: Adult Hospital Medicine
[2022-09-16] MEDS ORDERED: ONDANSETRON INJ 2 MG/ML 2 ML VIAL IV PRN (23:58)
[2022-09-16] MEDS ORDERED: POLYETHYLENE (MIRALAX) 17 GM PACK PO PRN (23:58)
[2022-09-17] MEDS ORDERED: FUROSEMIDE INJ 20 MG/2 ML VIAL IV ONE (01:43)
[2022-09-17] MEDS: ALBUT/IPRATROP 3MG/0.5MG NEB 3 ML VIAL INH SCH ×2 (07:06→19:41)
--- NOTE | 2022-09-17 07:23 | Ultrasound Report ---
ULTRASOUND ASCITES CHECK CLINICAL HISTORY: Abdominal distention. Edema. FINDINGS: Real-time grayscale sonography of all 4 quadrants of the abdomen is performed to assess for ascites. There is a moderate volume of abdominopelvic ascites. The largest pocket of fluid is seen i n the right upper quadrant adjacent to the liver. Cirrhotic liver morphology is incidentally noted. T he spleen appears enlarged. The bladder wall appears circumferentially thickened. IMPRESSION: Moderate volume of abdominopelvic ascites as above. Electronically signed by: Selvin Velasquez M.D. 09/17/2022 7:21 AM
[2022-09-17] MEDS: SERTRALINE HCL 50 MG TABLET PO SCH (08:58)
[2022-09-17] MEDS: FERROUS SULFATE 325 MG TAB PO SCH ×2 (08:58→20:09)
[2022-09-17] MEDS: FLUTICASONE FUROATE 100MCG 14 PUFFS/INHALER INH SCH (08:58)
[2022-09-17] MEDS ORDERED: FUROSEMIDE 40 MG TAB PO SCH (09:00)
--- NOTE | 2022-09-17 09:27 | Gastrointestinal Consultation ---
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 GI was asked to evaluate due to recurrent ascites. - Volume overload - Check BNP - Consider ECHO - Convert to IV Lasix while admitted, then resume Lasix 40 mg daily - Resume Spironolactone 100 mg daily when electrolytes permit - Low NA diet, less than 2g daily - Arrange diagnostic/therapeutic paracentesis - Albumin 25% 25G before and after - Send cell count, culture - Check fluid protein/albumin - Continue Protonix 40mg BID for 1 month - Continue iron as ordered - Trend MELD labs - Remain drug and alcohol free - Will need OP GI/Hepatology follow up Thank you for allowing us to participate in the care of this patient. Please call with any acute changes, questions or concerns. Please see addendum below with additional recommendation from my supervising physician. Supervising Physician Co-Signing Physician Notes I performed a history and physical examination of the patient today, including specifically on physical exam - soft abdomen. I have discussed the patient's management with the advanced practitioner. Please refer to the nurse practitioner's note for the documented findings and plan of care. Paracentesis today. 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 GI was asked to evaluate due to recurrent ascites. Pt was seen and evaluated, chart reviewed. Two staff at bedside. Issa notes that since his hospital discharge, he has had reuccent fluid accumulation after about 1 week. This started with swelling of bilateral feet, up to his legs fo llowed by re-accumulation of his abdominal fluid. Notes that the abd distention has made it difficult to take a deep breath. He otherwise denies GI s/s. No report of abd pain, nausea, vomiting, GERD, black or bloody stools. No fever, chills, CP. ABD US 2022: Moderate volume of abdominopelvic ascites as above. KUB 2022: No evidence for bowel obstruction. Centralization of bowel favors underlying ascites. Paracentesis 2021: Ultrasound-guided diagnostic paracentesis with aspiration of 50 cc of straw-colored ascites which was sent to the laboratory for analysis as ordered. EGD 2022: There were multiple columns of grade 2 varices in the lower esophagus.The GE junction was at 40 cm. There was a erosion with flat pigmented spots overlying a grade 2 varix without active bleeding at the GE junction. There was a large amount of clotted dark red blood in the fundus. This was lavaged, suctioned, and mostly removed using a net. Although the cardia and fundus could not be completely cleared, there were gastric varices in the Cardia along the greater curve (GEV 2) without evidence of active or recent bleed. There was no evidence of portal gastropathy. The duodenal mucosa was normal. Allergies Allergy/AdvReac Type Severity Reaction Status Date / Time No Known Allergies Allergy Unverified 09/16/22 19:16 Home Medications Medication Instructions Recorded Confirmed Type ciclesonide 80 mcg/actuation 2 puff inhalation BID 09/16/22 09/16/22 History aerosol inhaler (Alvesco) ferrous sulfate 325 mg (65 mg 325 mg PO BID 09/16/22 09/16/22 History iron) tablet furosemide 40 mg tablet 40 mg PO DAILY 09/16/22 09/16/22 History ipratropium 0.5 mg-albuterol 3 mg 3 ml inhalation BID 09/16/22 09/16/22 History (2.5 mg base)/3 mL nebulization soln mirtazapine 30 mg tablet 30 mg PO HS 09/16/22 09/16/22 History sertraline 50 mg tablet 50 mg PO DAILY 09/16/22 09/16/22 History spironolactone 100 mg tablet 100 mg PO DAILY 09/16/22 09/16/22 History Patient History Medical History Acute on chronic blood loss anemia Anxiety Cirrhosis COPD (chronic obstructive pulmonary disease) Esophageal varices History of intravenous drug abuse Past use of tobacco Family History Other Family history non-contributory Social History Smoking Status: Former smoker Tobacco Type: Cigarettes Age Started Using Tobacco: 9; Age Quit Using Tobacco: 51; packs per day: 0.5; Do You Dip or Chew Tobacco: No; Hx Alcohol Use: No Hx Substance Use: Yes Non-Prescribed Medications: IV Drugs Last Used Substance: Unknown Last Used Substance Other:: 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 Preferred Language: [place]ank[place] Communication Ability: Effective Electrician Office Required: No Beliefs That Will Affect Care: None Current Living Situation: Other Other Information That Helps Us Care for You: No Feels Safe at Home: Yes Safety Concerns: Feels Safe At This Time Assistive Devices: None Review of Systems Review of Systems: All systems reviewed & are unremarkable except as noted in HPI & below Physical Exam Constitutional: WD/WN, vitals as above Respiratory: normal respiratory effort, lungs clear to auscultation Cardiovascular: Rate/Rhythm: regular rate and regular rhythm + bilateral pedal edema 3+ Gastrointestinal (Abdomen): Inspection/Auscultation: abdomen normal to inspection, + abdomen distended (+moderate ascites) and normal bowel sounds Skin: no rashes, warm and dry +jaundice Results & Data ([facility]) Vital Signs (Past 12 Hours) Vital Signs Temp Pulse Pulse Resp BP BP Pulse Ox 09/17/22 07:06 101 H 18 91 09/17/22 07:01 36.6 C 100 H 18 134/81 91 09/16/22 23:30 09/16/22 23:00 108 H 132/91 91 09/16/22 22:00 109 H 15 92 09/16/22 22:00 132/90 09/16/22 21:30 109 H 16 90 09/16/22 21:30 158/101 H O2 Del Method O2 Flow Rate 09/17/22 07:06 Nasal Cannula 2.5 09/17/22 07:01 Nasal Cannula 2 09/16/22 23:30 Nasal Cannula 3 09/16/22 23:00 Nasal Cannula 3 09/16/22 22:00 Nasal Cannula 3 09/16/22 22:00 09/16/22 21:30 Nasal Cannula 3 09/16/22 21:30 Laboratory Results 09/17/22 09/17/22 09/16/22 Range/Units 08:38 08:38 18:51 WBC Pending 13.73 H RBC Pending 2.84 L Hgb Pending 8.1 L Hct Pending 24.7 L MCV Pending 87.0 MCH Pending 28.5 MCHC Pending 32.8 RDW Std Deviation 50.3 H RDW Coeff of Farrah 16.0 H Plt Count Pending 167 MPV 11.6 Immature Gran % (Auto) 0.6 Neut % (Auto) 78.2 Lymph % (Auto) 12.5 Trinity % (Auto) 8.4 Eos % (Auto) 0.2 Baso % (Auto) 0.1 Neut # (Auto) 10.75 H Lymph # (Auto) 1.71 Trinity # (Auto) 1.15 H Eos # (Auto) 0.03 Baso # (Auto) 0.01 Immature Gran # (Auto) 0.08 H Absolute Nucleated RBC Nucleated RBC % (auto) Neutrophils % (Manual) Band Neutrophils % Lymphocytes % (Manual) Prolymphocyte % Reactive Lymphs % (Man) Monocytes % (Manual) Eosinophils % (Manual) Basophils % (Manual) Metamyelocytes % (Man) Myelocytes % (Man) Promyelocytes % (Man) Blast Cells % (Manual) Plasma Cell % (Manual) Other Cells % Nucleated RBC % Neutrophils # (Manual) Band Neutrophils # Total Absolute Neuts Lymphocytes # (Manual) Prolymphocyte # Reactive Lymphs # Total Abs Lymphocytes Monocytes # (Manual) Eosinophils # (Manual) Basophils # (Manual) Metamyelocytes # (Man) Myelocytes # (Manual) Promyelocytes # (Man) Blast Cells # (Man) Plasma Cell # (Manual) Other Cells # Nucleated RBCs # (Man) Hypersegmented Neuts Hyposegmented Neuts Hypogranular Neuts Large Granular Lymphs # Lrg Granular Lymphs Hairy Cells Smudge Cells Toxic Granulation Toxic Vacuolation Dohle Bodies Karo Rods Platelet Estimate Hypogranular Platelets Clumped Platelets Giant Platelets Platelet Satelliting RBC Morphology Polychromasia Hypochromasia Poikilocytosis Basophilic Stippling Anisocytosis Microcytosis Macrocytosis Spherocytes Pappenheimer Bodies Sickle Cells Target Cells Tear Drop Cells Ovalocytes Stomatocytes [place] Bodies Echinocytes Acanthocytes (Spur) Rouleaux RBC Agglutinates Schistocytes Sezary Cell PT INR APTT PTT Ratio VBG pH VBG pCO2 VBG pO2 VBG HCO3 VBG O2 Saturation VBG Base Excess Barometric Pressure Sodium 136 (136-145) mmol/L Potassium 4.6 (3.5-5.1) mmol/L Chloride 108 H (98-107) mmol/L Carbon Dioxide 24 (21-32) mmol/L Anion Gap 4 (3-11) BUN 34 H (6-23) mg/dl Creatinine 0.57 L (0.6-1.4) mg/dl Est Cr Clr Drug Dosing 178.2 ml/min Est GFR ( Amer) 135.9 ml/min Est GFR (Non-Af Amer) 117.2 ml/min BUN/Creatinine Ratio 59.6 H (10-20) Glucose 94 (70-99(Fasting)) mg/dl Calcium 7.8 L (8.5-10.1) mg/dl Total Bilirubin 2.0 H (0.2-1.0) mg/dl AST 191 H (13-39) U/L ALT 137 H (7-52) U/L Alkaline Phosphatase 89 (34-104) U/L Troponin I High Sens (0-20) pg/ml Total Protein 5.5 L (6.0-8.3) gm/dl Albumin 2.7 L (3.4-5.0) gm/dl Globulin 2.8 (2.5-4.0) gm/dl Albumin/Globulin Ratio 1.0 (0.9-2) Lipase (11-82) U/L SARS-CoV-2, RNA, NAAT (NEGATIVE) Blood Parasites ID Blood Type Antibody Screen 09/16/22 09/16/22 09/16/22 Range/Units 18:51 17:32 17:32 WBC RBC Hgb Hct MCV MCH MCHC RDW Std Deviation RDW Coeff of Farrah Plt Count MPV Immature Gran % (Auto) Neut % (Auto) Lymph % (Auto) Trinity % (Auto) Eos % (Auto) Baso % (Auto) Neut # (Auto) Lymph # (Auto) Trinity # (Auto) Eos # (Auto) Baso # (Auto) Immature Gran # (Auto) Absolute Nucleated RBC Nucleated RBC % (auto) Neutrophils % (Manual) Band Neutrophils % Lymphocytes % (Manual) Prolymphocyte % Reactive Lymphs % (Man) Monocytes % (Manual) Eosinophils % (Manual) Basophils % (Manual) Metamyelocytes % (Man) Myelocytes % (Man) Promyelocytes % (Man) Blast Cells % (Manual) Plasma Cell % (Manual) Other Cells % Nucleated RBC % Neutrophils # (Manual) Band Neutrophils # Total Absolute Neuts Lymphocytes # (Manual) Prolymphocyte # Reactive Lymphs # Total Abs Lymphocytes Monocytes # (Manual) Eosinophils # (Manual) Basophils # (Manual) Metamyelocytes # (Man) Myelocytes # (Manual) Promyelocytes # (Man) Blast Cells # (Man) Plasma Cell # (Manual) Other Cells # Nucleated RBCs # (Man) Hypersegmented Neuts Hyposegmented Neuts Hypogranular Neuts Large Granular Lymphs # Lrg Granular Lymphs Hairy Cells Smudge Cells Toxic Granulation Toxic Vacuolation Dohle Bodies Karo Rods Platelet Estimate Hypogranular Platelets Clumped Platelets Giant Platelets Platelet Satelliting RBC Morphology Polychromasia Hypochromasia Poikilocytosis Basophilic Stippling Anisocytosis Microcytosis Macrocytosis Spherocytes Pappenheimer Bodies Sickle Cells Target Cells Tear Drop Cells Ovalocytes Stomatocytes [place] Bodies Echinocytes Acanthocytes (Spur) Rouleaux RBC Agglutinates Schistocytes Sezary Cell PT 16.6 H Cancelled INR 1.6 H Cancelled APTT 28.2 Cancelled PTT Ratio 1.0 Cancelled VBG pH VBG pCO2 VBG pO2 VBG HCO3 VBG O2 Saturation VBG Base Excess Barometric Pressure Sodium (136-145) mmol/L Potassium (3.5-5.1) mmol/L Chloride (98-107) mmol/L Carbon Dioxide (21-32) mmol/L Anion Gap (3-11) BUN (6-23) mg/dl Creatinine (0.6-1.4) mg/dl Est Cr Clr Drug Dosing ml/min Est GFR ( Amer) ml/min Est GFR (Non-Af Amer) ml/min BUN/Creatinine Ratio (10-20) Glucose (70-99(Fasting)) mg/dl Calcium (8.5-10.1) mg/dl Total Bilirubin (0.2-1.0) mg/dl AST (13-39) U/L ALT (7-52) U/L Alkaline Phosphatase (34-104) U/L Troponin I High Sens (0-20) pg/ml Total Protein (6.0-8.3) gm/dl Albumin (3.4-5.0) gm/dl Globulin (2.5-4.0) gm/dl Albumin/Globulin Ratio (0.9-2) Lipase (11-82) U/L SARS-CoV-2, RNA, NAAT (NEGATIVE) Blood Parasites ID Blood Type A Positive Antibody Screen NEGATIVE 09/16/22 09/16/22 09/16/22 Range/Units 17:32 17:32 16:31 WBC Cancelled RBC Cancelled Hgb Cancelled Hct Cancelled MCV Cancelled MCH Cancelled MCHC Cancelled RDW Std Deviation Cancelled RDW Coeff of Farrah Cancelled Plt Count Cancelled MPV Cancelled Immature Gran % (Auto) Cancelled Neut % (Auto) Cancelled Lymph % (Auto) Cancelled Trinity % (Auto) Cancelled Eos % (Auto) Cancelled Baso % (Auto) Cancelled Neut # (Auto) Cancelled Lymph # (Auto) Cancelled Trinity # (Auto) Cancelled Eos # (Auto) Cancelled Baso # (Auto) Cancelled Immature Gran # (Auto) Cancelled Absolute Nucleated RBC Cancelled Nucleated RBC % (auto) Cancelled Neutrophils % (Manual) Cancelled Band Neutrophils % Cancelled Lymphocytes % (Manual) Cancelled Prolymphocyte % Cancelled Reactive Lymphs % (Man) Cancelled Monocytes % (Manual) Cancelled Eosinophils % (Manual) Cancelled Basophils % (Manual) Cancelled Metamyelocytes % (Man) Cancelled Myelocytes % (Man) Cancelled Promyelocytes % (Man) Cancelled Blast Cells % (Manual) Cancelled Plasma Cell % (Manual) Cancelled Other Cells % Cancelled Nucleated RBC % Cancelled Neutrophils # (Manual) Cancelled Band Neutrophils # Cancelled Total Absolute Neuts Cancelled Lymphocytes # (Manual) Cancelled Prolymphocyte # Cancelled Reactive Lymphs # Cancelled Total Abs Lymphocytes Cancelled Monocytes # (Manual) Cancelled Eosinophils # (Manual) Cancelled Basophils # (Manual) Cancelled Metamyelocytes # (Man) Cancelled Myelocytes # (Manual) Cancelled Promyelocytes # (Man) Cancelled Blast Cells # (Man) Cancelled Plasma Cell # (Manual) Cancelled Other Cells # Cancelled Nucleated RBCs # (Man) Cancelled Hypersegmented Neuts Cancelled Hyposegmented Neuts Cancelled Hypogranular Neuts Cancelled Large Granular Lymphs Cancelled # Lrg Granular Lymphs Cancelled Hairy Cells Cancelled Smudge Cells Cancelled Toxic Granulation Cancelled Toxic Vacuolation Cancelled Dohle Bodies Cancelled Karo Rods Cancelled Platelet Estimate Cancelled Hypogranular Platelets Cancelled Clumped Platelets Cancelled Giant Platelets Cancelled Platelet Satelliting Cancelled RBC Morphology Cancelled Polychromasia Cancelled Hypochromasia Cancelled Poikilocytosis Cancelled Basophilic Stippling Cancelled Anisocytosis Cancelled Microcytosis Cancelled Macrocytosis Cancelled Spherocytes Cancelled Pappenheimer Bodies Cancelled Sickle Cells Cancelled Target Cells Cancelled Tear Drop Cells Cancelled Ovalocytes Cancelled Stomatocytes Cancelled [place] Bodies Cancelled Echinocytes Cancelled Acanthocytes (Spur) Cancelled Rouleaux Cancelled RBC Agglutinates Cancelled Schistocytes Cancelled Sezary Cell Cancelled PT INR APTT PTT Ratio VBG pH Cancelled VBG pCO2 Cancelled VBG pO2 Cancelled VBG HCO3 Cancelled VBG O2 Saturation Cancelled VBG Base Excess Cancelled Barometric Pressure Cancelled Sodium (136-145) mmol/L Potassium (3.5-5.1) mmol/L Chloride (98-107) mmol/L Carbon Dioxide (21-32) mmol/L Anion Gap (3-11) BUN (6-23) mg/dl Creatinine (0.6-1.4) mg/dl Est Cr Clr Drug Dosing ml/min Est GFR ( Amer) ml/min Est GFR (Non-Af Amer) ml/min BUN/Creatinine Ratio (10-20) Glucose (70-99(Fasting)) mg/dl Calcium (8.5-10.1) mg/dl Total Bilirubin (0.2-1.0) mg/dl AST (13-39) U/L ALT (7-52) U/L Alkaline Phosphatase (34-104) U/L Troponin I High Sens (0-20) pg/ml Total Protein (6.0-8.3) gm/dl Albumin (3.4-5.0) gm/dl Globulin (2.5-4.0) gm/dl Albumin/Globulin Ratio (0.9-2) Lipase (11-82) U/L SARS-CoV-2, RNA, NAAT (NEGATIVE) Blood Parasites ID Cancelled Blood Type Cancelled Antibody Screen Cancelled 09/16/22 09/16/22 09/16/22 Range/Units 16:26 16:26 16:26 WBC RBC Hgb Hct MCV MCH MCHC RDW Std Deviation RDW Coeff of Farrah Plt Count MPV Immature Gran % (Auto) Neut % (Auto) Lymph % (Auto) Trinity % (Auto) Eos % (Auto) Baso % (Auto) Neut # (Auto) Lymph # (Auto) Trinity # (Auto) Eos # (Auto) Baso # (Auto) Immature Gran # (Auto) Absolute Nucleated RBC Nucleated RBC % (auto) Neutrophils % (Manual) Band Neutrophils % Lymphocytes % (Manual) Prolymphocyte % Reactive Lymphs % (Man) Monocytes % (Manual) Eosinophils % (Manual) Basophils % (Manual) Metamyelocytes % (Man) Myelocytes % (Man) Promyelocytes % (Man) Blast Cells % (Manual) Plasma Cell % (Manual) Other Cells % Nucleated RBC % Neutrophils # (Manual) Band Neutrophils # Total Absolute Neuts Lymphocytes # (Manual) Prolymphocyte # Reactive Lymphs # Total Abs Lymphocytes Monocytes # (Manual) Eosinophils # (Manual) Basophils # (Manual) Metamyelocytes # (Man) Myelocytes # (Manual) Promyelocytes # (Man) Blast Cells # (Man) Plasma Cell # (Manual) Other Cells # Nucleated RBCs # (Man) Hypersegmented Neuts Hyposegmented Neuts Hypogranular Neuts Large Granular Lymphs # Lrg Granular Lymphs Hairy Cells Smudge Cells Toxic Granulation Toxic Vacuolation Dohle Bodies Karo Rods Platelet Estimate Hypogranular Platelets Clumped Platelets Giant Platelets Platelet Satelliting RBC Morphology Polychromasia Hypochromasia Poikilocytosis Basophilic Stippling Anisocytosis Microcytosis Macrocytosis Spherocytes Pappenheimer Bodies Sickle Cells Target Cells Tear Drop Cells Ovalocytes Stomatocytes [place] Bodies Echinocytes Acanthocytes (Spur) Rouleaux RBC Agglutinates Schistocytes Sezary Cell PT Cancelled INR Cancelled APTT Cancelled PTT Ratio Cancelled VBG pH Cancelled VBG pCO2 Cancelled VBG pO2 Cancelled VBG HCO3 Cancelled VBG O2 Saturation Cancelled VBG Base Excess Cancelled Barometric Pressure Cancelled Sodium 135 L (136-145) mmol/L Potassium 5.3 H (3.5-5.1) mmol/L Chloride 106 (98-107) mmol/L Carbon Dioxide 25 (21-32) mmol/L Anion Gap 4 (3-11) BUN 35 H (6-23) mg/dl Creatinine 0.64 (0.6-1.4) mg/dl Est Cr Clr Drug Dosing 158.7 ml/min Est GFR ( Amer) 129.6 ml/min Est GFR (Non-Af Amer) 111.8 ml/min BUN/Creatinine Ratio 54.7 H (10-20) Glucose 111 H (70-99(Fasting)) mg/dl Calcium 7.8 L (8.5-10.1) mg/dl Total Bilirubin 1.6 H (0.2-1.0) mg/dl AST 246 H (13-39) U/L ALT 180 H (7-52) U/L Alkaline Phosphatase 113 H (34-104) U/L Troponin I High Sens 11.1 (0-20) pg/ml Total Protein 6.0 (6.0-8.3) gm/dl Albumin 2.3 L (3.4-5.0) gm/dl Globulin 3.7 (2.5-4.0) gm/dl Albumin/Globulin Ratio 0.6 L (0.9-2) Lipase 52 (11-82) U/L SARS-CoV-2, RNA, NAAT (NEGATIVE) Blood Parasites ID Blood Type Antibody Screen 09/16/22 09/16/22 Range/Units 16:26 15:46 WBC Cancelled RBC Cancelled Hgb Cancelled Hct Cancelled MCV Cancelled MCH Cancelled MCHC Cancelled RDW Std Deviation Cancelled RDW Coeff of Farrah Cancelled Plt Count Cancelled MPV Cancelled Immature Gran % (Auto) Cancelled Neut % (Auto) Cancelled Lymph % (Auto) Cancelled Trinity % (Auto) Cancelled Eos % (Auto) Cancelled Baso % (Auto) Cancelled Neut # (Auto) Cancelled Lymph # (Auto) Cancelled Trinity # (Auto) Cancelled Eos # (Auto) Cancelled Baso # (Auto) Cancelled Immature Gran # (Auto) Cancelled Absolute Nucleated RBC Cancelled Nucleated RBC % (auto) Cancelled Neutrophils % (Manual) Cancelled Band Neutrophils % Cancelled Lymphocytes % (Manual) Cancelled Prolymphocyte % Cancelled Reactive Lymphs % (Man) Cancelled Monocytes % (Manual) Cancelled Eosinophils % (Manual) Cancelled Basophils % (Manual) Cancelled Metamyelocytes % (Man) Cancelled Myelocytes % (Man) Cancelled Promyelocytes % (Man) Cancelled Blast Cells % (Manual) Cancelled Plasma Cell % (Manual) Cancelled Other Cells % Cancelled Nucleated RBC % Cancelled Neutrophils # (Manual) Cancelled Band Neutrophils # Cancelled Total Absolute Neuts Cancelled Lymphocytes # (Manual) Cancelled Prolymphocyte # Cancelled Reactive Lymphs # Cancelled Total Abs Lymphocytes Cancelled Monocytes # (Manual) Cancelled Eosinophils # (Manual) Cancelled Basophils # (Manual) Cancelled Metamyelocytes # (Man) Cancelled Myelocytes # (Manual) Cancelled Promyelocytes # (Man) Cancelled Blast Cells # (Man) Cancelled Plasma Cell # (Manual) Cancelled Other Cells # Cancelled Nucleated RBCs # (Man) Cancelled Hypersegmented Neuts Cancelled Hyposegmented Neuts Cancelled Hypogranular Neuts Cancelled Large Granular Lymphs Cancelled # Lrg Granular Lymphs Cancelled Hairy Cells Cancelled Smudge Cells Cancelled Toxic Granulation Cancelled Toxic Vacuolation Cancelled Dohle Bodies Cancelled Karo Rods Cancelled Platelet Estimate Cancelled Hypogranular Platelets Cancelled Clumped Platelets Cancelled Giant Platelets Cancelled Platelet Satelliting Cancelled RBC Morphology Cancelled Polychromasia Cancelled Hypochromasia Cancelled Poikilocytosis Cancelled Basophilic Stippling Cancelled Anisocytosis Cancelled Microcytosis Cancelled Macrocytosis Cancelled Spherocytes Cancelled Pappenheimer Bodies Cancelled Sickle Cells Cancelled Target Cells Cancelled Tear Drop Cells Cancelled Ovalocytes Cancelled Stomatocytes Cancelled [place] Bodies Cancelled Echinocytes Cancelled Acanthocytes (Spur) Cancelled Rouleaux Cancelled RBC Agglutinates Cancelled Schistocytes Cancelled Sezary Cell Cancelled PT INR APTT PTT Ratio VBG pH VBG pCO2 VBG pO2 VBG HCO3 VBG O2 Saturation VBG Base Excess Barometric Pressure Sodium (136-145) mmol/L Potassium (3.5-5.1) mmol/L Chloride (98-107) mmol/L Carbon Dioxide (21-32) mmol/L Anion Gap (3-11) BUN (6-23) mg/dl Creatinine (0.6-1.4) mg/dl Est Cr Clr Drug Dosing ml/min Est GFR ( Amer) ml/min Est GFR (Non-Af Amer) ml/min BUN/Creatinine Ratio (10-20) Glucose (70-99(Fasting)) mg/dl Calcium (8.5-10.1) mg/dl Total Bilirubin (0.2-1.0) mg/dl AST (13-39) U/L ALT (7-52) U/L Alkaline Phosphatase (34-104) U/L Troponin I High Sens (0-20) pg/ml Total Protein (6.0-8.3) gm/dl Albumin (3.4-5.0) gm/dl Globulin (2.5-4.0) gm/dl Albumin/Globulin Ratio (0.9-2) Lipase (11-82) U/L SARS-CoV-2, RNA, NAAT NEGATIVE (NEGATIVE) Blood Parasites ID Cancelled Blood Type Antibody Screen (1) Abdominal ascites Ascites type: due to alcoholic cirrhosis Qualified Code(s): K70.31 - Alcoholic cirrhosis of liver with ascites
[2022-09-17 09:29] LABS: Albumin Level 2.7 gm/dl (3.4-5.0); Calcium 7.8 mg/dl (8.5-10.1); Potassium 4.6 mmol/L (3.5-5.1)
[2022-09-17 09:35] LABS: BUN Creatinine Ratio 59.6 (10-20); Creatinine Clr Calc Pharmacy 178.2 ml/min; Est GFR (African American) 135.9 ml/min; Est GFR (Non-African American) 117.2 ml/min; Globulin 2.8 gm/dl (2.5-4.0); Total Protein 5.5 gm/dl (6.0-8.3)
[2022-09-17] MEDS: FUROSEMIDE 40 MG/4 ML VIAL IV SCH ×2 (09:49→20:09)
[2022-09-17] MEDS ORDERED: OXYMETAZOLINE 0.05% 30 ML BTL PRN (09:54)
[2022-09-17 10:40] LABS: Hematocrit (blood only) 21.4 % (40.1-51.0); Hemoglobin 7.2 g/dl (14.0-18.0); Mean Corpuscular Hemoglobin 29.1 pg (25.0-34.0); Mean Corpuscular Hgb Conc 33.6 g/dL (32.0-36.0); Mean Corpuscular Volume 86.6 fL (80.0-100.0); Mean Platelet Volume 11.3 fL (9.4-12.4); Nucleated RBC # (auto) 0.04 K/uL (0-0); Nucleated RBC % (auto) 0.5 %; Platelet Count 94 K/uL (130-400); RDW Coefficient of Variation 16.1 % (11.5-14.5); RDW Standard Deviation 50.4 fL (36.4-46.3); Red Blood Count 2.47 M/uL (4.63-6.08); White Blood Count 8.55 K/ul (4.8-10.8)
[2022-09-17 10:45] LABS: Basophils # (auto) 0.02 K/uL (0-0.2); Basophils % (auto) 0.2 %; Eosinophils # (auto) 0.07 K/uL (0-0.50); Eosinophils % (auto) 0.8 %; Immature Granulocytes # (auto) 0.14 K/uL (0.00-0.02); Immature Granulocytes % (auto) 1.6 %; Lymphocytes # (auto) 1.39 K/uL (1.2-3.4); Lymphocytes % (auto) 16.3 %; Monocytes % (auto) 11.7 %; Neutrophils # (auto) 5.93 K/uL (1.4-6.5); Neutrophils % (auto) 69.4 %; Platelet Estimate Decreased (Normal)
--- NOTE | 2022-09-17 11:25 | Electrocardiogram Report ---
Test Reason : Blood Pressure : / mmHG Vent. Rate : 107 BPM Atrial Rate : 107 BPM P-R Int : 136 ms QRS Dur : 070 ms QT Int : 338 ms P-R-T Axes : 000 -16 027 degrees QTc Int : 451 ms Sinus tachycardia Low voltage QRS Cannot rule out Septal infarct (cited on or before 16-SEP-2022) Nonspecific T wave abnormality Abnormal ECG When compared with ECG of 22-AUG-2022 11:09, Questionable change in initial forces of Septal leads Confirmed by Raymond Milian ([id number]) on 09/17/2022 11:25:29 AM Referred By: Stanislav Wilburn Confirmed By:Raymond Milian
--- NOTE | 2022-09-17 15:00 | Hospitalist Progress Note ---
Date of Service September 17, 2022 Assessment & Plan (1) Abdominal ascites: Plan: Due to known cirrhosis. Appreciate gastroenterology consultation. Paracentesis today, September 17 (2) Cirrhosis: Plan: Due to hepatitis C and possibly alcohol consumption (3) Hepatitis C virus: Plan: Known. No intervention at this time (4) COPD (chronic obstructive pulmonary disease): Plan: Stable on current medications (5) Esophageal varices: Plan: No evidence of upper GI bleeding at this time (6) Anemia: Plan: Chronic. No overt blood loss at this time. Serial labs Plan Paracentesis today, September 17. Hopeful return to [facility] tomorrow, September 18 Admission and Anticipated Discharge Date Admission Date: September 16, 2022 Subjective Alert and oriented. No acute complaints. He is awaiting paracentesis later today. Potassium is down to 4.6. Spironolactone has been restarted. He is now on intravenous Lasix. Hopefully he can return to the [facility] tomorrow, September 18 Review of Systems 2 Review of Systems: Constitutional-no fever or chills ENT-no blurred vision, no double vision, no epistaxis, no sore throat Respiratory-no cough, no wheezing, no shortness of breath Cardiac-no palpitations, no chest pain, no syncope GI-abdominal bloating from ascites. Mild discomfort. -no urinary retention, no urinary incontinence, no dysuria, no hematuria Musculoskeletal-no joint pain, no muscle tenderness Skin-no bruising, no rashes, no pruritus Neuro-no isolated weakness, no paresthesia, no weakness Psych-no depression, no anxiety Physical Exam Physical Exam: General-alert and oriented x3, no fevers, no chills HEENT-head atraumatic and normocephalic, pupils equal and reactive to light, extraocular muscles intact Neck-no lymphadenopathy or thyromegaly, trachea midline Chest-clear to auscultation percussion. No rales wheezing or rhonchi Cardiac-regular rate and rhythm, normal S1 and S2 Abdomen-distended, taut abdomen. Bowel sounds active. No masses. No rebound or guarding Extremities-no cyanosis, clubbing, or edema Neuro-cranial nerves II through XII intact, motor and sensory function within normal limits, strength symmetrical , no focal deficits Psych-normal affect, normal mood Results & Data Results & Data ([facility]) Vital Signs (Past 12 Hours) Vital Signs Temp Pulse Resp BP Pulse Ox O2 Del Method O2 Flow Rate 09/17/22 07:35 Nasal Cannula 3 09/17/22 07:06 101 H 18 91 Nasal Cannula 2.5 09/17/22 07:01 36.6 C 100 H 18 134/81 91 Nasal Cannula 2 Laboratory Results 09/17/22 08:38 09/17/22 08:38 PG Care Time/CCT Total # of Minutes Spent Total Time Spent with Patient: Total time spent is greater than 50% in coordination of care (as documented) at patient's floor/unit and/or counseling patient: Coding Level of Care Code 58623 SUB INP/OBS CARE 350MIN Diagnoses Abdominal ascites K70.31 Ascites type: due to alcoholic cirrhosis Cirrhosis K74.60 Hepatitis C virus B19.20 COPD (chronic obstructive pulmonary disease) J44.9 COPD type: unspecified COPD Esophageal varices I85.00 Anemia D64.9 (1) Abdominal ascites Ascites type: due to alcoholic cirrhosis Qualified Code(s): K70.31 - Alcoholic cirrhosis of liver with ascites (2) COPD (chronic obstructive pulmonary disease) COPD type: unspecified COPD Qualified Code(s): J44.9 - Chronic obstructive pulmonary disease, unspecified
--- NOTE | 2022-09-17 15:31 | Ultrasound Report ---
ULTRASOUND-GUIDED DIAGNOSTIC AND THERAPEUTIC PARACENTESIS: HISTORY: Ascites Procedure: The procedure and its risks, benefits and alternatives were discussed with the patient and written informed consent was obtained. Preliminary ultrasound of the abdomen was performed to determ ine a safe needle entry site. The left lower quadrant was prepped and draped in the usual sterile fashion. 1% Lidocaine was used fo r local anesthesia. A paracentesis needle-sheath was inserted into the peritoneal space using ultraso und guidance. The needle was removed and the sheath was connected to tubing and a vacuum suction ajke ce. A total of 5.5 liters of yellow ascites was aspirated. The sheath was removed and a sterile dress ing applied. The patient tolerated the procedure well and there were no immediate complications. IMPRESSION: Ultrasound-guided therapeutic and diagnostic paracentesis with aspiration of 5.5 liters of ascites. 1 L was sent to the laboratory at the request of the referring physician ACT 112: Negative or not required by law. Electronically signed by: Ryan Olson M.D. 09/17/2022 3:29 PM
[2022-09-17 17:11] LABS: Appearance Peritoneal Fluid Clear; Color Peritoneal Fluid Pale Yellow; Lymphocytes, Fluid 26 %; Mono,Macrophage,Mesothelial 62 %; Neutrophils, Fluid 12 %; RBC Peritoneal Fluid Auto < 2000 /uL; WBC Peritoneal Fluid Auto 90 /ul (0-300)
[2022-09-17] MEDS ORDERED: MIRTAZAPINE TAB 15 MG TAB PO SCH (21:00)
--- NOTE | 2022-09-17 22:29 | Billing Data ---
Date of Service September 17, 2022 Coding Level of Care Code 13862 INT INP/OBS CARE
[2022-09-18 06:27] LABS: Basophils # (auto) 0.01 K/uL (0-0.2); Basophils % (auto) 0.2 %; Eosinophils # (auto) 0.07 K/uL (0-0.50); Eosinophils % (auto) 1.2 %; Hemoglobin 8.6 g/dl (14.0-18.0); Immature Granulocytes # (auto) 0.03 K/uL (0.00-0.02); Immature Granulocytes % (auto) 0.5 %; Lymphocytes # (auto) 0.97 K/uL (1.2-3.4); Lymphocytes % (auto) 16.7 %; Mean Corpuscular Hemoglobin 28.6 pg (25.0-34.0); Mean Corpuscular Hgb Conc 33.1 g/dL (32.0-36.0); Mean Corpuscular Volume 86.4 fL (80.0-100.0); Mean Platelet Volume 11.1 fL (9.4-12.4); Monocytes # (auto) 0.52 K/uL (0.24-0.82); Neutrophils % (auto) 72.4 %; Platelet Count 99 K/uL (130-400); RDW Coefficient of Variation 16.6 % (11.5-14.5); RDW Standard Deviation 51.1 fL (36.4-46.3); Red Blood Count 3.01 M/uL (4.63-6.08)
[2022-09-18 06:49] LABS: Albumin Level 2.8 gm/dl (3.4-5.0); Bilirubin,Total 1.7 mg/dl (0.2-1.0); Calcium 7.9 mg/dl (8.5-10.1); Magnesium 1.8 mg/dl (1.7-2.4); Potassium 4.4 mmol/L (3.5-5.1)
[2022-09-18 06:55] LABS: Albumin Globulin Ratio 0.9 (0.9-2); BUN Creatinine Ratio 46.5 (10-20); Est GFR (African American) 124.2 ml/min; Est GFR (Non-African American) 107.1 ml/min; Phosphorus 2.8 mg/dl (2.5-4.9); Total Protein 5.8 gm/dl (6.0-8.3)
[2022-09-18] MEDS: SERTRALINE HCL 50 MG TABLET PO SCH (07:35)
[2022-09-18] MEDS: FERROUS SULFATE 325 MG TAB PO SCH (07:35)
[2022-09-18] MEDS: FUROSEMIDE 40 MG/4 ML VIAL IV SCH (07:36)
[2022-09-18] MEDS: FLUTICASONE FUROATE 100MCG 14 PUFFS/INHALER INH SCH (07:36)
[2022-09-18] MEDS: ALBUT/IPRATROP 3MG/0.5MG NEB 3 ML VIAL INH SCH (08:32)
[2022-09-18] MEDS ORDERED: SPIRONOLACTONE 100 MG TAB PO SCH (09:00)
--- NOTE | 2022-09-18 12:16 | Discharge Summary ---
Date of Service September 18, 2022 Admission HPI Per Admitting Provider 51-year-old man with a history of end-stage cirrhosis, hepatitis C, and COPD who presents to the emergency room with a complaint of abdominal and lower extremity swelling. Patient was recently admitted x7 days on 08/22/2022 for acute GI bleed with esophageal varices. He also shortness of breath with worsening abdominal distention. In the ED, vitals were notable for tachycardia to the high 100s and hypoxia with 86% saturation on room air. Labs were notable for WBC of 13.73, hemoglobin of 8.1 (down from apparent baseline of 10-11, from last admission), elevated PT and INR of 16.6 and 1.6 respectively. Elevated K+ of 5.3. BUN of 35. Labs also revealed hyperbilirubinemia of 1.6, transaminitis (AST 246, ALT 180), alk phos 113, and albumin 2.3. CXR showed right lung base airspace opacity suggestive of a moderate right pleural effusion (vs pneumonia), increased from previous x-ray 3 weeks ago. KUB showed "centralization" suggestive of underlying ascites. He was placed on 3 L of oxygen via nasal cannula, and given IV albumin x2 bags. On admission, patient states that abdominal distention and leg swelling started during his last hospital admission on 08/22/2022. He received daily Lasix 40 mg p.o. at that time but reports that he continued when he [facility]. He became concerned enough to seek medical attention after developing shortness of breath which he reports started today. He reports that the shortness of breath is worsened by exertion. He denies paroxysmal nocturnal dyspnea, cough, abdominal pain, or increased mucus production. Principal Diagnosis Recurrent nonmalignant ascites secondary to cirrhosis, hyperkalemia, right pleural effusion Discharge Exam General-alert and oriented x3, no fevers, no chills HEENT-head atraumatic and normocephalic, pupils equal and reactive to light, extraocular muscles intact Neck-no lymphadenopathy or thyromegaly, trachea midline Chest-clear to auscultation percussion. No rales wheezing or rhonchi Cardiac-regular rate and rhythm, normal S1 and S2 Abdomen-much less distended and softer after paracentesis of 5 L of fluid. Bowel sounds active. No masses. No rebound or guarding Extremities-no cyanosis, clubbing, or edema Neuro-cranial nerves II through XII intact, motor and sensory function within normal limits, strength symmetrical , no focal deficits Psych-normal affect, normal mood Discharge Data Allergies Allergy/AdvReac Type Severity Reaction Status Date / Time No Known Allergies Allergy Unverified 09/16/22 19:16 Consultations 09/16/22 18:55 ED Decision to Admit Stat 09/17/22 09:21 Consult Gastroenterology Routine Ordered Studies 09/17/22 01:53 US abdomen ltd ascites Routine 09/17/22 09:58 US paracentesis abd w/image Routine Hospital Course (1) Abdominal ascites: Recurrent, due to cirrhosis from hepatitis C. He underwent paracentesis on September 17 with aspiration of 5.5 L of fluid. He remains on spironolactone (2) Esophageal varices: (3) COPD (chronic obstructive pulmonary disease): Stable. Continue current medical management (4) Pleural effusion: Passive right pleural effusion noted on chest x-ray (5) Hepatitis C virus: Chronic. Probable cause of known cirrhosis (6) Hyperkalemia: Present on admission. Now resolved. Plan Discharge today, September 18, back to the [facility]. Total Time Total Time Spent Total Time Spent (In Minutes): 35-minute Discharge Plan Discharge Items [facility] Disposition: [facility] Reason For Visit: abdominal swelling, shortness of breath Discharge Diagnosis: Recurrent ascites, hepatitis C induced cirrhosis, hyperkalemia Activity: Resume your previous activity Non-emergency contact: Primary Care Provider Call non-emergency contact if: your symptoms worsen Follow-up/Referrals: Stanislav Wilburn [place] [Primary Care Provider] - Diet: Heart Healthy Addtl Attending Provider Instructions: No new medications at this time Stand-Alone Forms: My New [facility] Skilled Items Patient informed of condition?: Yes Discharge Level of Care: Other Communicable Disease: No Discharge Prognosis: Stable Lines: None Urinary Catheter: No Medications and DC Order Prescriptions: Continued spironolactone 100 mg Tablet 100 mg PO DAILY mirtazapine 30 mg Tablet 30 mg PO HS sertraline 50 mg Tablet 50 mg PO DAILY ferrous sulfate 325 mg (65 mg iron) Tablet 325 mg PO BID Alvesco 80 mcg/actuation Hfa Aerosol Inhaler 2 puff INHALATION BID furosemide 40 mg Tablet 40 mg PO DAILY ipratropium-albuterol 0.5 mg-3 mg(2.5 mg base)/3 mL Solution For Nebulization 3 ml INHALATION BID Rx Instructions: start 09/03/22 stop 09/18/22 Discharge Orders: Discharge Order (Routine); Ordered 09/18/22 Ordered By: Issa Ayala Admission Data Admit Date/Time: 09/16/22 22:52 Attending Provider: Issa Ayala Admit Provider: Lencho Sena Primary Care Provider: Stanislav Wilburn Other Providers: Nam Isidro ; Archana Jones ; Get Gutierrez ; Latrice Wallace ; Patti You ; Deepti Beltran ; Yanni Vences ; Armani Cortez ; Fito Egan ; Chani Chacon ; Bryan Hoffman ; Manjit Pompa ; Adrienne Stevens ; Alma Mckeon ; Nahomi Neri ; Ariela Pavon ; John Bowers ; Jonel De La Cruz ; Tico Emanuel ; Jennifer Lyles ; Susy Montoya Jr Coding Level of Care Code HOSP INP/OBS DISCH >30 MIN Diagnoses Abdominal ascites K70.31 Ascites type: due to alcoholic cirrhosis Esophageal varices I85.00 COPD (chronic obstructive pulmonary disease) J44.9 COPD type: unspecified COPD Pleural effusion J90 Hepatitis C virus B19.20 Hyperkalemia E87.5
== END 2022-09-18 14:50 | DRG 433 ==
LOC: ED 14:56 → 3E 22:52 → SUATTDRO 22:52 → 3E 23:30
DX: Z86.19 Personal history of other infectious and parasitic diseases; I85.10 Secondary esophageal varices without bleeding; B18.2 Chronic viral hepatitis C; Z87.891 Personal history of nicotine dependence; F10.21 Alcohol dependence, in remission; E87.5 Hyperkalemia; K74.60 Unspecified cirrhosis of liver; J44.9 Chronic obstructive pulmonary disease, unspecified; D64.9 Anemia, unspecified; J90 Pleural effusion, not elsewhere classified; F41.9 Anxiety disorder, unspecified; R09.02 Hypoxemia; R18.8 Other ascites